=== PATIENT | female | born 1970 | race Caucasian/White ===

== ENCOUNTER → 2016-08-22 | Outpatient (CLI) | payer BC, OTHER ==
[~2016-08-22] MED LIST: CYAN10005 PO; FERR1TAB23 PO; GLYB5TAB8 PO; INSDGI SC; POLY335025 PO
== END | disposition home or self-care (01) ==
LOC: C.PAPS 11:54
PROVIDERS: ATTEND Obstetrics & Gynecology
DX: R87.610 Atypical squamous cells of undetermined significance on cytologic smear of cervix (ASC-US) (principal)

== ENCOUNTER → 2017-02-28 | Outpatient (CLI) | payer BC, OTHER ==
--- NOTE | 2017-03-01 07:54 | MAMMOGRAPHY REPORT ---
BILATERAL DIGITAL SCREENING MAMMOGRAM TOMOSYNTHESIS WITH CAD: 02/28/2017 CLINICAL HISTORY: Routine screening. TECHNIQUE: Breast tomosynthesis in addition to standard 2D mammography was performed. Current study was also evaluated with a Computer Aided Detection (CAD) system. COMPARISON: Comparison is made to exams dated: 03/10/2016 mammogram, 02/28/2016 mammogram, 02/24/2015 mammogram, 02/23/2014 mammogram, 02/20/2013 mammogram, and 01/24/2012 mammogram - [facility]. BREAST COMPOSITION: There are scattered areas of fibroglandular density in both breasts. FINDINGS: There are numerous stable groupings of punctate microcalcifications and benign rim calcific ations in the breasts. No suspicious mass, architectural distortion or cluster of new, suspicious mi crocalcifications is seen. IMPRESSION: ACR BI-RADS CATEGORY 1: NEGATIVE There is no mammographic evidence of malignancy. A 1 year screening mammogram is recommended. The pa tient will receive written notification of the results. Approximately 10% of breast cancers are not detected with mammography. A negative mammographic report should not delay biopsy if a clinically suggestive mass is present. Ida Uribe M.D. ay/:02/28/2017 16:06:12 [employer] Mdm Architect: Mariajose PYLE(R)(M), [facility] letter sent: Normal 1/2 BI-RADS Code: ACR BI-RADS Category 1: Negative
== END | disposition home or self-care (01) ==
LOC: C.MAMM 15:02
PROVIDERS: ATTEND Obstetrics & Gynecology
DX: Z12.31 Encounter for screening mammogram for malignant neoplasm of breast (principal)

== ENCOUNTER → 2017-03-06 | Outpatient (CLI) | payer BC, OTHER | END | disposition home or self-care (01) | LOC: C.PAPS 12:15 | PROVIDERS: ATTEND Obstetrics & Gynecology | DX: Z01.419 Encounter for gynecological examination (general) (routine) without abnormal findings (principal); R87.610 Atypical squamous cells of undetermined significance on cytologic smear of cervix (ASC-US) ==

== ENCOUNTER 2023-09-20 15:51 | Inpatient (IN) ==
[~2023-09-20 15:51] MED LIST changes: -CYAN10005 PO; -FERR1TAB23 PO; -GLYB5TAB8 PO; -INSDGI SC; +MAGNESIUM SULFATE / D5W 1 GM/100 ML BAG IV SCH; -POLY335025 PO
[2023-09-20] MEDS: SODIUM CHLORIDE 0.9% 1,000 ML IV ONE (16:22)
--- NOTE | 2023-09-20 16:43 | XRay Report ---
XR chest 1V portable HISTORY: 53 years-old Female Weakness COMPARISON: None TECHNIQUE: AP view of the chest FINDINGS: Cardiomediastinal and hilar silhouettes are within normal limits. No pneumothorax, pleural effusion o r airspace consolidation. Bones appear grossly intact. IMPRESSION: No acute process. ACT 112: Negative or not required by law. The above report was generated using voice recognition software. It may contain grammatical, syntax o r spelling errors. Electronically signed by: Jeferson Ballesteros M.D. 09/20/2023 4:41 PM
[2023-09-20 16:48] LABS: Alanine Aminotransferase 14 U/L (7-52); Albumin Level 4.1 gm/dl (3.4-5.0); Alkaline Phosphatase 59 U/L (34-104); Anion Gap 10 (3-11); Aspartate Aminotransferase 18 U/L (13-39); BUN Creatinine Ratio 26.3 (10-20); Bilirubin,Total 0.9 mg/dl (0.2-1.0); Blood Urea Nitrogen 20 mg/dl (6-23); Calcium 9.3 mg/dl (8.6-10.3); Carbon Dioxide 24 mmol/L (21-32); Chloride 104 mmol/L (98-107); Creatinine Clr Calc Pharmacy 74.9 ml/min; Est GFR (African American) 102.3 ml/min; Est GFR (Non-African American) 88.3 ml/min; Globulin 2.1 gm/dl (2.5-4.0); Glucose 253 mg/dl (70-99(Fasting)); Magnesium 1.6 mg/dl (1.7-2.4); Potassium 4.1 mmol/L (3.5-5.1); Sodium 138 mmol/L (136-145); Total Protein 6.2 gm/dl (6.0-8.3)
[2023-09-20 16:55] LABS: Troponin I High Sensitivity < 2.3 pg/ml (0-14)
[2023-09-20 16:57] LABS: Partial Thromboplastin Ratio 0.8; Partial Thromboplastin Time 22 Seconds (21-31); Prothrombin Time 10.8 Seconds (9.0-12.0)
[2023-09-20 17:00] LABS: Basophils # (auto) 0.03 K/uL (0.00-0.20); Basophils % (auto) 0.6 %; Eosinophils # (auto) 0.06 K/uL (0.00-0.50); Eosinophils % (auto) 1.2 %; Hematocrit (blood only) 36.4 % (37.0-47.0); Hemoglobin 12.3 g/dl (12.0-16.0); Immature Granulocytes # (auto) 0.02 K/uL (0.01-0.20); Immature Granulocytes % (auto) 0.4 %; Lymphocytes # (auto) 1.36 K/uL (1.20-3.40); Lymphocytes % (auto) 26.4 %; Mean Corpuscular Hemoglobin 29.9 pg (25.0-34.0); Mean Corpuscular Hgb Conc 33.8 g/dL (32.0-36.0); Mean Corpuscular Volume 88.6 fL (80.0-100.0); Mean Platelet Volume 11.9 fL (9.4-12.4); Monocytes # (auto) 0.27 K/uL (0.11-0.59); Monocytes % (auto) 5.2 %; Neutrophils # (auto) 3.41 K/uL (1.40-6.50); Neutrophils % (auto) 66.2 %; Platelet Count 166 K/uL (130-400); RDW Coefficient of Variation 12.7 % (11.5-14.5); RDW Standard Deviation 41.7 fL (36.4-46.3); Red Blood Count 4.11 M/uL (4.20-5.40); White Blood Count 5.15 K/ul (4.8-10.8)
[2023-09-20 17:04] LABS: Thyroid Stimulating Hormone 1.338 uIu/ml (0.300-4.500)
--- NOTE | 2023-09-20 17:12 | Emergency Department Note ---
Impression & Plan Abdominal pain, Constipation, Acute hypotension ED Provider Note NAME: ROQUE SANDOVAL AGE: 53 SEX: F : 1970 ARRIVES VIA: Walk-In INFORMANT: Patient ED PROVIDER(S): Brody George DO CHIEF COMPLAINT: weakness HPI: Patient is a 53-year-old female who presents to the ER she started not feeling well around 3 PM. She started having pain in the epigastric region to the right upper quadrant. Radiates through to the right shoulder. Associate with nausea and vomiting. She denies any dysuria, urgency, or frequency. She was concerned that she may be having a heart attack. She denies any other chest pain or shortness of breath. No previous abdominal surgeries. ADDITIONAL HISTORY OBTAINED: Per HPI Chronic Medical/Social Conditions Affecting Care: Per HPI PAST MEDICAL HISTORY:See Below PAST SURGICAL HISTORY:See Below FAMILY HISTORY:See Below SOCIAL HISTORY:See Below HOME MEDICATIONS:See Below ALLERGIES:See Below VITALS:See Below PHYSICAL EXAMINATION: GENERAL: Sitting up in bed, alert, well appearing, well nourished, no distress, non-toxic EYE EXAM: normal conjunctiva. OROPHARYNX: mucous membranes are moist NECK: supple, no nuchal rigidity, no adenopathy, non-tender LUNGS: Clear to auscultation. Normal chest wall mechanics HEART: no murmurs, S1 normal and S2 normal ABDOMEN: abdomen soft, tender palpation epigastric region, normo-active bowel sounds, no masses, no rebound or guarding. UPPER EXTREMITIES: upper extremities are grossly normal. LOWER EXTREMITIES: No pitting edema. NEURO EXAM: Normal sensorium, cranial nerves II-XII grossly intact, normal speech, no gross weakness of arms, no gross weakness of legs. MEDICAL DECISION MAKING: Patient is a 53-year-old female who presents ER for the above-stated complaint. IV was established blood work was obtained. Labs show no significant leukocytosis or anemia. INR unremarkable. BMP with LFTs, bilirubin, was unremarkable. Mag at 1.6. Troponins were negative x 2. TSH unremarkable. UA with ketones suggesting dehydration. Systolic pressures trended down to the 70s. She was given 2 L of normal saline. The trended back up to the 90s. Baseline systolic pressures appear to be 120s. CT abdomen pelvis confirmed and showed stercoral proctitis with fecal impaction. Patient was given enema and had multiple large bowel movements. She was feeling better but did have pain in the epigastric/right upper quadrant. Ultrasound was ordered and showed sludge in the gallbladder but no acute cholecystitis. Did cover prophylactically with Zosyn. Consults/Care Managements Discussions: Per MDM Triage Nursing notes reviewed. Limited review of prior medical records performed Vital Signs: reviewed and remarkable for hypotension Differential diagnosis: Differential diagnoses includes but is not limited to gastritis, peptic ulcer disease, GERD, gallbladder disease, pancreatitis, small bowel obstruction, appendicitis, diverticulitis, hernia, urinary tract infection, torsion, [/ectopic (if female)], perforation, trauma, infectious. ER treatment provided: See below Diagnostics interpreted by me include EKG and cardiac monitoring as listed below: -Cardiac Monitoring: An order was placed for continuous cardiac monitoring. The monitor shows a rate of 101 with sinus rhythm. -ECG: Sinus rhythm rate 92 Normal axis No PVCs QTc 432 -Laboratory studies:Interpreted by me as stated above in MDM and shown below. 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 Friedman Type 1 diabetes IDDM Family history of premature CAD Cervical intraepithelial neoplasia grade 1 Medical History Hx of iron deficiency anemia Migraine History of COVID-19 Postmenopausal PVCs (premature ventricular contractions) Type 1 diabetes Family history of premature CAD Cervical intraepithelial neoplasia grade 1 History of hiatal hernia Chronic reflux esophagitis Uterine enlargement Breast neoplasm Surgical History History of wisdom tooth extraction H/O LEEP History of esophagogastroduodenoscopy (EGD) H/O colposcopy with cervical biopsy S/P colonoscopy Family History Mother Coronary heart disease Daughter Diabetes Brother Diabetes Cardiovascular disease Father Stroke Other No family history of adverse response to anesthesia Denies family history of Ovarian cancer Breast cancer Colorectal cancer Social History Smoking Status: Never smoker Second Hand Exposure: No; Do You Dip or Chew Tobacco: No; Hx Alcohol Use: Yes Hx Substance Use: No Preferred Language: Setswana Communication Ability: Effective Visual Impairment: No Limitations Hearing Ability: Normal 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 Helper Required: No Beliefs That Will Affect Care: None marital status: Current Living Situation: Spouse Feels Safe at Home: Yes Dental Care, Regularly: Yes Seatbelt Use: always Assistive Devices: Contacts and Glasses Allergies Allergies Allergy/AdvReac Type Severity Reaction Status Date / Time No Known Drug Allergies Allergy Verified 09/06/23 12:41 Home Meds Home Medications Medication Instructions Recorded Confirmed cholecalciferol (vitamin D3) 25 1,000 - 2,000 units PO HS 12/18/18 09/20/23 mcg (1,000 unit) capsule cyanocobalamin (vitamin B-12) 1,000 mcg IM UD 12/23/18 09/20/23 1,000 mcg/mL injection solution flash glucose sensor (FreeStyle 09/06/23 09/06/23 Raghavendra 2 Sensor kit) insulin aspart U-100 100 unit/mL 1 sliding scale dose subcut DAILY 09/06/23 09/20/23 (3 mL) subcutaneous pen (Novolog PRN Other FlexPen U-100 Insulin aspart) insulin glargine 100 unit/mL (3 8 unit subcut HS 09/06/23 09/20/23 mL) subcutaneous pen (Basaglar KwikPen U-100 Insulin) atorvastatin 20 mg tablet 10 mg PO HS 09/20/23 09/20/23 tirzepatide 5 mg/0.5 mL 5 mg subcut Q7D 09/20/23 09/20/23 subcutaneous pen injector (Kamran) Previous Rx's Medication Instructions Recorded acetone (urine) test (Ketostix #50 ea 10/13/22 strips) Omnipod 5 G6 Intro Kit (Gen 5) #1 10/16/22 subcutaneous cartridge with controller (insulin pump cart,auto,BT-cntr) Omnipod 5 G6 Pods (Gen 5) (insulin #10 ea 10/16/22 pump cart,automated,BT) pen needle, diabetic 32 gauge x #450 ea 04/05/23 5/32" (BD Ultra-Fine Patricia Pen Needle) Results & Data (ED) Vital Signs Vital Signs - 24 hr 09/20/23 15:55 09/20/23 16:20 09/20/23 16:20 Temperature 36.7 C Temperature Source Temporal Artery Scan Pulse Rate 96 H Pulse Rate [Apical] 90 Respiratory Rate 16 Respiratory Effort / Characteristics Non-Labored Spontaneous Respiratory Depth Normal Blood Pressure 70/49 L Blood Pressure [Left Arm] 90/45 L Blood Pressure Mean 56 Blood Pressure Mean [Left Arm] 60 Pulse Oximetry 99 100 Oxygen Delivery Method Room Air Room Air Sepsis Recent Fever Within 48 Hours No Sepsis New/Unexplained Change in Mental Status No Sepsis Action Taken by Nursing No Action Required 09/20/23 16:27 09/20/23 16:33 09/20/23 18:00 Temperature Temperature Source Pulse Rate 106 H Pulse Rate [Apical] 101 H Respiratory Rate 20 Respiratory Effort / Characteristics Respiratory Depth Blood Pressure Blood Pressure [Left Arm] 100/50 L 104/38 L Blood Pressure Mean Blood Pressure Mean [Left Arm] 66 60 Pulse Oximetry 100 Oxygen Delivery Method Room Air Sepsis Recent Fever Within 48 Hours Sepsis New/Unexplained Change in Mental Status Sepsis Action Taken by Nursing 09/20/23 21:43 Temperature Temperature Source Pulse Rate Pulse Rate [Apical] 100 H Respiratory Rate 18 Respiratory Effort / Characteristics Respiratory Depth Blood Pressure Blood Pressure [Left Arm] 98/73 L Blood Pressure Mean Blood Pressure Mean [Left Arm] 81 Pulse Oximetry Oxygen Delivery Method Sepsis Recent Fever Within 48 Hours Sepsis New/Unexplained Change in Mental Status Sepsis Action Taken by Nursing Laboratory Data 09/20/23 16:08 09/20/23 16:08 Lab Results 09/20/23 09/20/23 09/20/23 Range/Units 16:08 18:18 21:26 WBC 5.15 (4.8-10.8) K/ul RBC 4.11 L (4.20-5.40) M/uL Hgb 12.3 (12.0-16.0) g/dl Hct 36.4 L (37.0-47.0) % MCV 88.6 (80.0-100.0) fL MCH 29.9 (25.0-34.0) pg MCHC 33.8 (32.0-36.0) g/dL RDW Std Deviation 41.7 (36.4-46.3) fL RDW Coeff of Franny 12.7 (11.5-14.5) % Plt Count 166 (130-400) K/uL MPV 11.9 (9.4-12.4) fL Immature Gran % (Auto) 0.4 % Neut % (Auto) 66.2 % Lymph % (Auto) 26.4 % Mckenzie % (Auto) 5.2 % Eos % (Auto) 1.2 % Baso % (Auto) 0.6 % Neut # (Auto) 3.41 (1.40-6.50) K/uL Lymph # (Auto) 1.36 (1.20-3.40) K/uL Mckenzie # (Auto) 0.27 (0.11-0.59) K/uL Eos # (Auto) 0.06 (0.00-0.50) K/uL Baso # (Auto) 0.03 (0.00-0.20) K/uL Immature Gran # (Auto) 0.02 (0.01-0.20) K/uL PT 10.8 (9.0-12.0) Seconds INR 1.0 (0.9-1.1) APTT 22 (21-31) Seconds PTT Ratio 0.8 Sodium 138 (136-145) mmol/L Potassium 4.1 (3.5-5.1) mmol/L Chloride 104 (98-107) mmol/L Carbon Dioxide 24 (21-32) mmol/L Anion Gap 10 (3-11) BUN 20 (6-23) mg/dl Creatinine 0.76 (0.6-1.2) mg/dl Est Cr Clr Drug Dosing 74.9 ml/min Est GFR ( Amer) 102.3 ml/min Est GFR (Non-Af Amer) 88.3 ml/min BUN/Creatinine Ratio 26.3 H (10-20) Glucose 253 H (70-99(Fasting)) mg/dl Calcium 9.3 (8.6-10.3) mg/dl Magnesium 1.6 L (1.7-2.4) mg/dl Total Bilirubin 0.9 (0.2-1.0) mg/dl AST 18 (13-39) U/L ALT 14 (7-52) U/L Alkaline Phosphatase 59 (34-104) U/L Troponin I High Sens < 2.3 2.7 (0-14) pg/ml Total Protein 6.2 (6.0-8.3) gm/dl Albumin 4.1 (3.4-5.0) gm/dl Globulin 2.1 L (2.5-4.0) gm/dl Albumin/Globulin Ratio 2.0 (0.9-2) TSH 1.338 (0.300-4.500) uIu/ml Urine Color Yellow Urine Appearance Clear (Clear) Urine pH 5.0 (4.5-7.5) Ur Specific Perkins 1.040 H (1.000-1.030) Urine Protein Negative (Negative) Urine Glucose (UA) 3+ H (Negative) Urine Ketones 2+ H (Negative) Urine Blood Negative (Negative) Urine Nitrite Negative (Negative) Urine Bilirubin Negative (Negative) Urine Urobilinogen Negative (Negative) Ur Leukocyte Esterase Negative (Negative) Administered Medications Discontinued Medications Sodium Chloride (Nss) 1,000 mls @ 999 mls/hr IV .Q1H1M ONE Stop: 09/20/23 17:18 Last Infusion: 09/20/23 17:28 Dose: Infused Documented By: Admin: 09/20/23 16:22 Dose: 999 mls/hr Documented By: TOREY Sodium Chloride (Nss) 1,000 mls @ 999 mls/hr IV .Q1H1M DIANA Stop: 09/20/23 19:15 Last Infusion: 09/20/23 19:31 Dose: Infused Documented By: Admin: 09/20/23 18:25 Dose: 999 mls/hr Documented By: Infusion: 09/20/23 18:25 Dose: Infused Documented By: Admin: 09/20/23 17:18 Dose: 999 mls/hr Documented By: TOREY Ioversol (Optiray 320 100ml) 93 ml IV ONCE ONE Stop: 09/20/23 17:48 Last Admin: 09/20/23 17:47 Dose: 93 ml Documented By: DALY Ketorolac Tromethamine (Ketorolac Tromethamine 15 Mg/Ml Vial) 15 mg IV NOW ONE Stop: 09/20/23 17:19 Last Admin: 09/20/23 17:23 Dose: 15 mg Documented By: TOREY Magnesium Citrate (Magnesium Citrate 296 Ml/Btl) 296 ml PO NOW STA Stop: 09/20/23 19:02 Last Admin: 09/20/23 20:15 Dose: 296 ml Documented By: TOREY Ondansetron HCl (Ondansetron Inj 2 Mg/Ml 2 Ml Vial) 4 mg IV NOW STA Stop: 09/20/23 17:19 Last Admin: 09/20/23 17:23 Dose: 4 mg Documented By: TOREY Imaging Data Radiologist's Impression: Chest X-Ray 09/20/23 16:18 XR chest 1V portable HISTORY: 53 years-old Female Weakness COMPARISON: None TECHNIQUE: AP view of the chest FINDINGS: Cardiomediastinal and hilar silhouettes are within normal limits. No pneumothorax, pleural effusion or airspace consolidation. Bones appear grossly intact. IMPRESSION: No acute process. ACT 112: Negative or not required by law. The above report was generated using voice recognition software. It may contain grammatical, syntax or spelling errors. Electronically signed by: Jeferson Ballesteros M.D. 09/20/2023 4:41 PM Abdomen/Pelvis CT 09/20/23 17:18 CT SCAN OF THE ABDOMEN AND PELVIS WITH IV CONTRAST CLINICAL HISTORY: Epigastric abdominal pain. Nausea and vomiting. COMPARISON STUDY: Abdominal ultrasound dated 04/28/2014. TECHNIQUE: Following the IV administration of 93 cc of Optiray 320, CT scan of the abdomen and pelvis is performed from the lung bases to the proximal femora. Images are reviewed in the axial, sagittal, and coronal planes. IV contrast was administered without complication. A dose lowering technique was utilized adhering to the principles of ALARA. CT DOSE: 387.3 mGy.cm FINDINGS: Lung bases: The heart is normal in size and without pericardial effusion. The lung bases are clear. Liver: The contrast-enhanced liver is normal in size, contour, and attenuation. There is no intrahepatic biliary ductal dilatation. The hepatic veins and portal veins are patent. A 2.4 cm low-attenuation lesion is seen in the left lobe of the diaphragm on image #40. This appears to show foci of peripheral nodular enhancement. An additional 1.1 cm left lobe lesion is seen on image #65 and a 1.2 cm right lobe lesion Is seen on image #79. Gallbladder: Unremarkable. Spleen: Normal in size and attenuation. Pancreas: Unremarkable. Adrenal glands: Unremarkable. Kidneys: The contrast enhanced kidneys are normal in size and without hydronephrosis. The kidneys enhance symmetrically. A retroaortic left renal vein is incidentally noted. Abdominal vasculature: The abdominal aorta is normal in course and caliber. Bowel: There is rectosigmoid fecal impaction, with rectal wall thickening and mild surrounding inflammation. There is zfjv-so-zzurensm fecal retention throughout the remainder of the colon. Although decompressed, the wall of the left colon appears mildly thickened with surrounding infiltration. No bowel obstruction is seen. Imaged portions of the normal appendix are seen in the right lower quadrant. Peritoneum: There is no intraperitoneal free air or abdominal ascites. There is mesenteric edema. Lymphadenopathy: None. Pelvic viscera: The bladder, uterus, and adnexa are normal as visualized. Skeletal structures: No lytic or blastic lesions are seen. Soft tissues: There is anasarca of the body wall. IMPRESSION: 1. There is rectosigmoid fecal impaction with mild rectal wall thickening and surrounding infiltration. The appearance favors a stercoral proctitis and clinical correlation will be required. 2. There is also likely a mild colitis ofthe left colon. This may also be stercoral. Correlate clinically. 3. There is body wall edema. 4. There are at least 3 low attenuation hepatic lesions identified. These are incompletely characterized, and favor hemangiomas when correlated with prior ultrasounds. If warranted these could be definitively characterized with a nonemergent/outpatient MRI of the liver. 5. Additional findings as above. ACT 112: Negative or not required by law. Electronically signed by: Tony Pathak M.D. 09/20/2023 6:10 PM Discharge Plan Visit Data Chief Complaint: Weakness Stated Complaint: VERTIGO, NAUSEA, TYPE I DIABETE, WEAK ED Provider: Brody George Discharge Problem: Abdominal pain, Constipation, Acute hypotension Forms Stand Alone Forms: [employer] Prescriptions Prescriptions: No Action (DME) Omnipod 5 G6 Pods (Gen 5) Cartridge See Rx Instructions .Route Qty: 10 11RF Rx Instructions: Change pod every 3 days; subq (DME) Omnipod 5 G6 Intro Kit (Gen 5) Cartridge See Rx Instructions .Route Qty: 1 0RF Rx Instructions: Change pod every 3 days; subq (DME) pen needle, diabetic [BD Ultra-Fine Patricia Pen Needle] 32 gauge x 5/32" needle See Dose Instructions .ROUTE .MEDSUPPLY Qty: 450 3RF Dose Instruction: As directed Rx Instructions: use 5 daily for multiple injections (DME) Ketostix Strip See Rx Instructions miscellaneous .MEDSUPPLY Qty: 50 5RF Rx Instructions: check for sick days and high blood sugars insulin glargine [Basaglar KwikPen U-100 Insulin] 100 unit/mL (3 mL) insulin pen 8 unit SQ HS insulin aspart U-100 [Novolog FlexPen U-100 Insulin] 100 unit/mL (3 mL) insulin pen 1 sliding scale dose subcut DAILY PRN (Reason: Other) Rx Instructions: with meals per sliding scale (DME) FreeStyle Arghavendra 2 Sensor Kit See Rx Instructions .ROUTE Rx Instructions: As directed cholecalciferol (vitamin D3) 1,000 unit capsule 1,000 - 2,000 units PO HS Patient Comments: 1,000 unit PO take 1 tablet in the summer, 2 tablets in the winter; Rx Instructions: 1,000 unit PO take 1 tablet in the summer, 2 tablets in the winter; cyanocobalamin (vitamin B-12) 1,000 mcg/mL solution 1,000 mcg IM UD Patient Comments: 1,000 mcg IM bi-weekly; Rx Instructions: 1,000 mcg IM bi-weekly; atorvastatin 20 mg tablet 10 mg PO HS Rx Instructions: original: 20 mg po hs 10 mg per patient Mounjaro 5 mg/0.5 mL pen injector 5 mg subcut Q7D Rx Instructions: weekly injection 21 day dose Referrals Referrals: Tashi Gill MD [Primary Care Provider] - Discharge Problem: Abdominal pain Qualifiers: Abdominal location: unspecified location Qualified Code(s): R10.9 - Unspecified abdominal pain Constipation Qualifiers: Constipation type: unspecified constipation type Qualified Code(s): K59.00 - Constipation, unspecified
[2023-09-20] MEDS: SODIUM CHLORIDE 0.9% 1,000 ML IV SCH (17:18)
[2023-09-20] MEDS: KETOROLAC TROMETHAMINE 15 MG/ML VIAL IV ONE (17:23)
[2023-09-20] MEDS: ONDANSETRON INJ 2 MG/ML 2 ML VIAL IV STA (17:23)
[2023-09-20] MEDS: OPTIRAY 320 100ml IV ONE (17:47)
--- NOTE | 2023-09-20 18:11 | CT Scan Report ---
CT SCAN OF THE ABDOMEN AND PELVIS WITH IV CONTRAST CLINICAL HISTORY: Epigastric abdominal pain. Nausea and vomiting. COMPARISON STUDY: Abdominal ultrasound dated 04/28/2014. TECHNIQUE: Following the IV administration of 93 cc of Optiray 320, CT scan of the abdomen and pelvi s is performed from the lung bases to the proximal femora. Images are reviewed in the axial, sagittal , and coronal planes. IV contrast was administered without complication. A dose lowering technique wa s utilized adhering to the principles of ALARA. CT DOSE: 387.3 mGy.cm FINDINGS: Lung bases: The heart is normal in size and without pericardial effusion. The lung bases are clear. Liver: The contrast-enhanced liver is normal in size, contour, and attenuation. There is no intrahepa tic biliary ductal dilatation. The hepatic veins and portal veins are patent. A 2.4 cm low-attenuatio n lesion is seen in the left lobe of the diaphragm on image #40. This appears to show foci of periphe ral nodular enhancement. An additional 1.1 cm left lobe lesion is seen on image #65 and a 1.2 cm righ t lobe lesion Is seen on image #79. Gallbladder: Unremarkable. Spleen: Normal in size and attenuation. Pancreas: Unremarkable. Adrenal glands: Unremarkable. Kidneys: The contrast enhanced kidneys are normal in size and without hydronephrosis. The kidneys enh ance symmetrically. A retroaortic left renal vein is incidentally noted. Abdominal vasculature: The abdominal aorta is normal in course and caliber. Bowel: There is rectosigmoid fecal impaction, with rectal wall thickening and mild surrounding inflam mation. There is [id number]-dk-iyezyozv fecal retention throughout the remainder of the colon. Although dec ompressed, the wall of the left colon appears mildly thickened with surrounding infiltration. No claude l obstruction is seen. Imaged portions of the normal appendix are seen in the right lower quadrant. Peritoneum: There is no intraperitoneal free air or abdominal ascites. There is mesenteric edema. Lymphadenopathy: None. Pelvic viscera: The bladder, uterus, and adnexa are normal as visualized. Skeletal structures: No lytic or blastic lesions are seen. Soft tissues: There is anasarca of the body wall. IMPRESSION: 1. There is rectosigmoid fecal impaction with mild rectal wall thickening and surrounding infiltratio n. The appearance favors a stercoral proctitis and clinical correlation will be required. 2. There is also likely a mild colitis ofthe left colon. This may also be stercoral. Correlate clini sheri. 3. There is body wall edema. 4. There are at least 3 low attenuation hepatic lesions identified. These are incompletely characteri zed, and favor hemangiomas when correlated with prior ultrasounds. If warranted these could be defini tively characterized with a nonemergent/outpatient MRI of the liver. 5. Additional findings as above. ACT 112: Negative or not required by law. Electronically signed by: Tony Pathak M.D. 09/20/2023 6:10 PM
[2023-09-20] MEDS: MAGNESIUM CITRATE 296 ML/BTL PO STA (20:15)
[2023-09-20 21:50] LABS: Appearance Urine Clear (Clear); Bilirubin Urine Negative (Negative); Blood Urine Negative (Negative); Color Urine Yellow; Glucose Urine UA 3+ (Negative); Ketones Urine 2+ (Negative); Leukocyte Esterase Urine Negative (Negative); Nitrite Urine Negative (Negative); Protein Urine Negative (Negative); Urobilinogen Urine Negative (Negative)
--- NOTE | 2023-09-20 22:17 | Ultrasound Report ---
Exam(s): US GALLBLADDER EXAM: US Abdomen Limited, Gallbladder CLINICAL HISTORY: Reason for exam: epigastric abd pain. TECHNIQUE: Real-time ultrasound of the right upper quadrant with image documentation. COMPARISON: None. FINDINGS: Limitations: Exam is limited due to body habitus and gas artifact in the bowel. Liver: The liver measures 13.5 cm . The portal vein reveals hepatopedal flow. There are 2 hyperechoic area seen within the right liver lobe measuring 1.0 x 1.1 x 1.0 cm and 0.9 x 0.8 x 1.0 cm. Gallbladder: Subtle internal echoes within the gallbladder seen suggestive of possible sludge versus artifact. No distinct gallstone . Gallbladder wall measures 3 mm. Negative [place] sign. Common bile duct: The common bile measures 4 mm. No stones. No dilation. Pancreas: The pancreas is obscured. Right kidney: The right kidney reveals no hydronephrosis. Free fluid: No free fluid. IMPRESSION: 1. Possible small amount of sludge within the gallbladder. No gallstones or signs of acute cholecystitis. 2. 2 hyperechoic structure within the right liver lobe largest measuring 1.1 cm most compatible with hemangiomas. If indicated, this can be confirmed with follow-up CT or MRI, three-phase protocol. 3. Remainder of the right upper quadrant ultrasound unremarkable. Electronically signed by: Halina Wilde MD 09/20/23 22:16 PM
[2023-09-20] MEDS: PIPERACILLIN/TAZOBACTAM 4.5 GM in DEXTROSE 5% MINI-B 100 ML IV ONE (22:47)
--- NOTE | 2023-09-20 23:10 | History & Physical Report ---
Date of Service September 20, 2023 Assessment & Plan (1) Constipation: (2) Type 1 diabetes: (3) Family history of premature CAD: (4) Liver lesion: (5) Sinus tachycardia: Plan Pt is a 53 yo female with a past medical history of GERD, chronic constipation, type 1 diabetic, and family hx of early [place] who presents to the hospital on 09/19 for generally feeling unwell. #Stercoral proctitis - CT abd showed stercoral proctitis, given dose of zosyn - pt is s/p enema in the ED with multiple large nonbloody bowel movements - will start metronidazole in the am - recommend pt have f/u colonoscopy outpatient in probably 4-6 weeks #Sinus tachycardia with hypotension - trop x2 wnl, EKG pending read but appears sinus - seems this started suddenly and with family hx of early [place] this is concerning, may be secondary to dehydration as she is clinically dry but seems ominous with sudden onset - pt given 3L IVF NS for hypotension with moderate improvement - will do echocardiogram and CTA for further workup of sinus tachycardia #Biliary colic - RUQ US shows some GB sludge but no active cholecystitis - will obtain HIDA scan for further workup #DMT1 - will do glargine 3 units BID - novolog per protocol - hold mounjaro; should be discussed with pt prior to discharge if she should be continuing this medication as she has lost a lot of weight and if workup is positive for biliary abnormality, mounjaro could be contributory #Liver lesions - CT abd showed at least 3 liver lesions favoring hemangiomas - recommend outpatient MRI for further evaluation upon discharge DVT ppx: Lovenox IVF: LR 125/hr to stop after 3 bags tomorrow night Dispo: PCU History of Present Illness Chief Complaint: Weakness Primary Care Provider: Tashi Gill MD Pt is a 53 yo female with a past medical history of GERD, chronic constipation, type 1 diabetic, and family hx of early [place] who presents to the hospital on 09/19 for generally feeling unwell. Pt states that this morning and prior to this morning she generally has felt okay with no real issues. She states that today she went to get a massage and felt fine during the massage, but then on her drive home she started to develop sudden and sharp abdominal pain that radiated to her shoulders. She states she also felt "unwell" and weak and then had multiple episodes of bilious vomiting. She states that her dad and mom had a heart attack in their 40s/50s and so she was worried she may be having a heart attack and came into the ER. She states she felt her heart was racing as well. Never had anything like this before. No personal hx of AZ or CVA. No hx of abdominal surgeries before but she does note she has struggled with constipation for a long time, she uses miralax daily for this and typically has a bowel movement daily on this regime. Of note, pt is on Mounjaro and has lost 50 lbs over the last few months. Allergies Allergy/AdvReac Type Severity Reaction Status Date / Time No Known Drug Allergies Allergy Verified 09/06/23 12:41 Home Medications Medication Instructions Recorded Confirmed Type cholecalciferol (vitamin D3) 25 1,000 - 2,000 units PO HS 12/18/18 09/20/23 History mcg (1,000 unit) capsule cyanocobalamin (vitamin B-12) 1,000 mcg IM UD 12/23/18 09/20/23 History 1,000 mcg/mL injection solution acetone (urine) test (Ketostix #50 ea 10/13/22 09/06/23 Rx strips) Omnipod 5 G6 Intro Kit (Gen 5) #1 ea 10/16/22 07/23/23 Rx subcutaneous cartridge with controller (insulin pump cart,auto,BT-cntr) Omnipod 5 G6 Pods (Gen 5) (insulin #10 ea 10/16/22 07/23/23 Rx pump cart,automated,BT) pen needle, diabetic 32 gauge x #450 ea 04/05/23 09/06/23 Rx 5/32" (BD Ultra-Fine Patricia Pen Needle) flash glucose sensor (FreeStyle 09/06/23 09/06/23 History Raghavendra 2 Sensor kit) insulin aspart U-100 100 unit/mL 1 sliding scale dose subcut DAILY 09/06/23 09/20/23 History (3 mL) subcutaneous pen (Novolog PRN Other FlexPen U-100 Insulin aspart) insulin glargine 100 unit/mL (3 8 unit subcut HS 09/06/23 09/20/23 History mL) subcutaneous pen (Basaglar KwikPen U-100 Insulin) atorvastatin 20 mg tablet 10 mg PO HS 09/20/23 09/20/23 History tirzepatide 5 mg/0.5 mL 5 mg subcut Q7D 09/20/23 09/20/23 History subcutaneous pen injector (Darshanunjenny) Past Med/Surg History Problem List (Updated 09/20/23 @ 23:57 by Li Watson DO) Sinus tachycardia Liver lesion Acute hypotension (Acute) Constipation (Acute) Abdominal pain (Acute) Dyslipidemia Asymptomatic postmenopausal state Vitamin D deficiency KAYLEEN (iron deficiency anemia) Encounter for pre-operative examination Anemia (Chronic ~12/2012) Otitis 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 Friedman Type 1 diabetes IDDM Family history of premature CAD Cervical intraepithelial neoplasia grade 1 Medical History Hx of iron deficiency anemia Migraine History of COVID-19 Postmenopausal PVCs (premature ventricular contractions) Type 1 diabetes Family history of premature CAD Cervical intraepithelial neoplasia grade 1 History of hiatal hernia Chronic reflux esophagitis Uterine enlargement Breast neoplasm Surgical History History of wisdom tooth extraction H/O LEEP History of esophagogastroduodenoscopy (EGD) H/O colposcopy with cervical biopsy S/P colonoscopy Family History Mother Coronary heart disease Daughter Diabetes Brother Diabetes Cardiovascular disease Father Stroke Other No family history of adverse response to anesthesia Denies family history of Ovarian cancer Breast cancer Colorectal cancer Social History Smoking Status: Never smoker Second Hand Exposure: No; Do You Dip or Chew Tobacco: No; Hx Alcohol Use: Yes Hx Substance Use: No Preferred Language: Luxembourgish Communication Ability: Effective Visual Impairment: No Limitations Hearing Ability: Normal Stone Lathe Operator Required: No Beliefs That Will Affect Care: None marital status: Current Living Situation: Spouse Feels Safe at Home: Yes Dental Care, Regularly: Yes Seatbelt Use: always Assistive Devices: Contacts and Glasses Review of Systems Review of Systems: Constitutional: denies fever, chills, Cardio: denies chest pain, palpitations Resp: denies shortness of breath, cough Physical Exam Physical Exam: General: Alert and oriented, no acute distress, thin appearing female but clinically dry appearing HEENT: Normocephalic, moist oral mucosa, Cardio: Regular rate and rhythm, no murmur, Resp: Lungs clear to auscultation b/l, no wheezes or rhonchi, GI: Soft, nondistended, bowel sounds active, mild diffuse tenderness to palpation noted Skin: Warm, pink, dry, Results & Data Results & Data Vital Signs (Past 12 Hours) Vital Signs Temp Pulse Pulse Resp BP BP Pulse Ox 09/20/23 21:43 100 H 18 98/73 L 09/20/23 18:00 101 H 20 104/38 L 100 09/20/23 16:33 100/50 L 09/20/23 16:27 106 H 09/20/23 16:20 100 09/20/23 16:20 90 90/45 L 09/20/23 15:55 36.7 C 96 H 16 70/49 L 99 O2 Del Method 09/20/23 21:43 09/20/23 18:00 Room Air 09/20/23 16:33 09/20/23 16:27 09/20/23 16:20 Room Air 09/20/23 16:20 09/20/23 15:55 Room Air Supervising Physician Co-Signing Physician Notes Attending addendum: I have physically seen this patient, have supervised the medical residents act ivities, and agree with the H&P unless as otherwise noted. Assessment and Plan: Stercoral proctocolitis- Follow blood culture sensitivity Given single dose of Zosyn 4.5 g IV from the ED ED administered enema with multiple large nonbloody bowel movements Start Cipro 400 mg IV every 12 hours and Flagyl 500 mg IV every 8 hours Sepsis/hypotension/sinus tachycardia- Likely secondary to proctocolitis and dehydration Blood pressure initially 70/49, did improve with 3 L normal saline to 98/54 Patient describes symptoms of disorientation and inability to follow commands when initially assessed Patient also describes acute onset of rapid heart rate and palpitations CTA chest PE protocol negative for PE, aortic dissection or other acute cardiopulmonary disease Continue IV fluids as noted Right upper quadrant pain- NPO Right upper quadrant ultrasound shows gallbladder sludge but no active cholecystitis Order HIDA scan Patient has had approximately 50 pound weight loss attributed to use of Mounjaro Large weight loss could predispose to cholecystitis, and Mounjaro itself is associated with biliary colic Cipro and Flagyl as noted above Liver lesions x 3- Noted on CT abdomen pelvis is possibly hemangiomas Further clarification with MRI as outpatient Resident Activity Tracking Resident Involvement: Resident Care Provided Care Provided: Adult Hospital Medicine (1) Constipation Constipation type: unspecified constipation type Qualified Code(s): K59.00 - Constipation, unspecified
[2023-09-20] MEDS: OPTIRAY 320 125ml IV ONE (23:47)
[2023-09-21] MEDS ORDERED: GLUCAGON FOR INJ 1 MG VIAL SQ PRN (00:49)
[2023-09-21] MEDS ORDERED: CARBOHYDRATES FOR HYPOGLYCEMIA PO PRN (00:49)
[2023-09-21] MEDS ORDERED: GLUCOSE 40% GEL 15 GM TUBE PO PRN (00:49)
[2023-09-21] MEDS ORDERED: POLYETHYLENE (MIRALAX) 17 GM PACK PO PRN (00:49)
[2023-09-21] MEDS ORDERED: DEXTROSE 50% 50 ML SYRINGE IV PRN (00:49)
[2023-09-21] MEDS ORDERED: GLUCOSE 10 TAB/TUBE PO PRN (00:49)
[2023-09-21] MEDS ORDERED: ACETAMINOPHEN 325 MG TAB PO PRN (00:49)
[2023-09-21] MEDS: ONDANSETRON INJ 2 MG/ML 2 ML VIAL IV PRN (00:59)
[2023-09-21] MEDS: LACTATED RINGER'S 1,000 ML IV SCH ×2 (00:59→09:25)
[2023-09-21] MEDS: MAGNESIUM SULFATE / D5W 1 GM/100 ML BAG IV SCH (01:45)
[2023-09-21] MEDS: ONDANSETRON INJ 2 MG/ML 2 ML VIAL ONE (01:55)
--- NOTE | 2023-09-21 02:09 | CT Scan Report ---
Exam(s): CTA CHEST IV Amt: 86 ml opti 320 EXAM: CT Angiography Chest With Intravenous Contrast CLINICAL HISTORY: Reason for exam: PE. TECHNIQUE: Axial computed tomographic angiography images of the chest with intravenous contrast. CTDI is 21.3 mGy and DLP is 292.35 mGy-cm. Automated exposure control was utilized for the study. A dose lowering technique was utilized adhering to the principles of ALARA. MIP reconstructed images were created and reviewed. COMPARISON: None. FINDINGS: Pulmonary arteries: Unremarkable. No pulmonary embolism. Normal enhancement of the pulmonary arteries. Aorta: Minimal atherosclerotic disease of aorta with no aneurysm or dissection. Lungs: Unremarkable. No mass. No consolidation. Pleural space: Unremarkable. No significant effusion. No pneumothorax. Heart: Unremarkable. No cardiomegaly. No significant pericardial effusion. No evidence of RV dysfunction. Bones/joints: Mild spondylosis of the thoracic spine with no acute fracture or subluxation. Soft tissues: Diffuse fluid infiltration of subcutaneous fat which may indicate mild anasarca. Lymph nodes: Unremarkable. No enlarged lymph nodes. Other findings: Upper abdominal structures incompletely included in the [id number] and therefore difficult to characterize. Visualized upper abdominal viscera are unremarkable. IMPRESSION: 1. No pulmonary embolus or aortic dissection. 2. No acute cardiopulmonary disease. Electronically signed by: Halina Wilde MD 09/21/23 02:08 AM
--- NOTE | 2023-09-21 02:57 | Billing Data ---
Date of Service September 21, 2023 Coding Level of Care Code 13082 INT INP/OBS CARE
[2023-09-21] MEDS ORDERED: PROMETHAZINE HCL 12.5 MG in SODIUM CHLORIDE 0.9% 50 ML IV PRN (05:36)
[2023-09-21] MEDS: CIPROFLOXACIN / D5W 400 MG/200 ML BAG IV SCH (05:46)
[2023-09-21] MEDS: SODIUM CHLORIDE 0.9% 1,000 ML IV ONE (06:14)
[2023-09-21] MEDS: ALBUMIN 25% 25 GM/100 ML VIAL IV SCH (06:23)
[2023-09-21 06:32] LABS: Hemoglobin 10.8 g/dl (12.0-16.0); Mean Corpuscular Hemoglobin 31.1 pg (25.0-34.0); Mean Corpuscular Hgb Conc 34.8 g/dL (32.0-36.0); Mean Corpuscular Volume 89.3 fL (80.0-100.0); Mean Platelet Volume 12.4 fL (9.4-12.4); Platelet Count 148 K/uL (130-400); RDW Coefficient of Variation 13.3 % (11.5-14.5); RDW Standard Deviation 43.4 fL (36.4-46.3); Red Blood Count 3.47 M/uL (4.20-5.40); White Blood Count 12.64 K/ul (4.8-10.8)
[2023-09-21 06:50] LABS: BUN Creatinine Ratio 26.3 (10-20); Calcium 8.5 mg/dl (8.6-10.3); Creatinine Clr Calc Pharmacy 59.9 ml/min; Est GFR (African American) 78.2 ml/min; Est GFR (Non-African American) 67.4 ml/min; Magnesium 2.3 mg/dl (1.7-2.4); Potassium 4.2 mmol/L (3.5-5.1)
[2023-09-21] MEDS ORDERED: INSULIN ASPART PER UNIT CHARGE SC STA (06:58)
[2023-09-21 07:03] LABS: Basophils # (auto) 0.02 K/uL (0.00-0.20); Basophils % (auto) 0.2 %; Immature Granulocytes # (auto) 0.17 K/uL (0.01-0.20); Immature Granulocytes % (auto) 1.3 %; Lymphocytes # (auto) 0.36 K/uL (1.20-3.40); Lymphocytes % (auto) 2.8 %; Monocytes % (auto) 4.7 %; Neutrophils # (auto) 11.49 K/uL (1.40-6.50)
[2023-09-21] MEDS ORDERED: PHARMACY GLYCEMIC MGMT CONSULT PRN ×2 (07:11→07:35)
--- NOTE | 2023-09-21 07:23 | Hospitalist Progress Note ---
Date of Service September 21, 2023 Assessment & Plan (1) Constipation: (2) Type 1 diabetes: (3) Family history of premature CAD: (4) Liver lesion: (5) Sinus tachycardia: Plan Pt is a 53 yo female with a past medical history of GERD, chronic constipation, type 1 diabetes, and family hx of early [place] who presents to the hospital on 09/19 for general malaise, chest pain and abdominal pain that seemed to radiate to shoulders/shoulder blades, and feelings of dizziness, fatigue, 1) Stercoral proctitis - CT abd showed stercoral proctitis, - pt is s/p enema in the ED with multiple large nonbloody bowel movements - pt is ciprofloxacin, IV and metronidazole, IV - WBC, 12.6 <-- 5.2 (admission) - recommend pt have f/u colonoscopy outpatient in probably 4-6 weeks 2) DKA/T1DM - patient went into DKA 09/21/23 AM, DKA order set utilized and pt managed accordingly, this afternoon AG and BSG levels have returned to normal - Pharmacy now managing pt's insulin regimen - Held mounjaro; should be discussed with pt prior to discharge if she should be continuing this medication as she has lost a lot of weight and if workup is positive for biliary abnormality, mounjaro could be contributory 3) Sinus tachycardia with hypotension - trop x2 wnl, EKG: normal sinus rhythm - started suddenly (with family hx of early [place]), may be secondary to dehydration as she is clinically dry but seems ominous with sudden onset - pt given 3L IVF NS for hypotension with moderate improvement - CTA: IMPRESSION: 1. No pulmonary embolus or aortic dissection. 2. No acute cardiopulmonary disease. - Echocardiogram: hyperdynamic LV, mild-moderate tricuspid regurgitation, EF > 70%, no regional wall motion abnormalities noted - continued hypotensive BP readings even after significant amount of fluids over last 24 hours, along w/ WBC increase, raising concerns for sepsis - continue fluid repletion, trend CBC, monitor vitals, continue antibiotics (consider longer course, if sepsis suspicion increasingly warranted) 4)Biliary colic - RUQ US shows some GB sludge but no active cholecystitis - see above regarding Mounjaro use and potential contraindication - HIDA scan w/out concerning acute findings 5) Liver lesions - CT abd showed at least 3 liver lesions favoring hemangiomas per radiology - recommend outpatient MRI for further evaluation upon discharge Code status: Full code DVT ppx: Lovenox IVF: LR 125/hr to stop after 3 bags tomorrow night Dispo: PCU Admission and Anticipated Discharge Date Admission Date: September 20, 2023 Supervising Physician Co-Signing Physician Notes I personally examined the patient and verified all tate points of history and exam, discussed case, and agree with decision making with Dr Acosta Seen several times today. Early this a.m. she was vaguely complaining of abdominal pain and quite groggy. Abdominal pain diffuse, really hard to quantify, but also she was quite sleepy and not able to give much of a history. Only about 2 and half hours later she was awake and alert mildly fatigued but completely coherent. Abdominal pain has essentially resolved. No other new complaints. she also notes Subjective Although patient experiences chronic constipation and is on daily Miralax for that, she has not noticed any worsening of her constipation and has continued to have daily bowel movements. She was experiencing chest pain radiating to both her shoulders yesterday along with sudden onset weakness, fatigue and drove to the hospital where she began to vomit in the parking lot before coming into ED with help of friend. Once admitted she received a chest pain rule out workup along with imaging of the abdomen. This morning the patient seemed sicker, very fatigued, ill looking, nauseous with labs indicating increased WBC count and patient now going into DKA w/ BSG's in 400's, elevated AG. Patient started on insulin drip, 1 L bolus of LR, electrolyte repletion as needed. This afternoon patient's labs had improved, transitioned to subQ insulin, continued to receive fluids, started on a diet, able to tolerate solid food, but continued to have persistently hypotensive blood pressures, although subjectively the patient endorsed feeling much better than upon arrival and admission. Review of Systems Constitutional: + fever (last night but no F/C this morn ing), + chills, + fatigue and + weakness Eyes: no worsening vision (very blurry vision improved over yesterday) Respiratory: no cough, no chest congestion and no dyspnea Cardiovascular: + lightheadedness (when getting up); no radiating jaw, neck or arm pain and no palpitations Gastrointestinal: + abdominal pain (tenderness from vomiti ng episodes), + nausea, + vomiting (started in hospital parking lot) and + constipation (at baseline, 17 g Miralax/daily, no acute on chronic constipation); no change in bowel habits, no change in stools and no blood in stools Musculoskeletal: + body aches (shoulder soreness and belo w breast soreness from massage from yesterday) Neurologic: + dizziness; no tingling, no numbness an d no headache(s) Endocrine: + fatigue and + polyuria Physical Exam Constitutional: well nourished, + ill appearing and cooperative Respiratory: normal respiratory effort, lungs clear to auscultation Cardiovascular: RRR, no murmur, no edema Extremities: no calf tenderness and no pedal edema Gastrointestinal (Abdomen): Inspection/Auscultation: abdomen normal to inspection and normal bowel sounds; abdomen not distended Percussion/Palpation: + abdomen tender (4/10 under left ribcage) Psychiatric: A+Ox3, euthymic affect Results & Data Results & Data Vital Signs (Past 12 Hours) Vital Signs Temp Pulse Pulse Resp BP BP Pulse Ox 09/21/23 03:06 37.5 C 111 H 18 90/50 L 94 09/21/23 01:00 09/21/23 00:58 99 H 09/21/23 00:49 09/21/23 00:45 36.9 C 106 H 16 91/49 L 97 09/21/23 00:45 36.9 C 106 H 20 91/49 L 97 09/20/23 23:00 104 H 17 108/50 L 98 09/20/23 21:43 100 H 18 98/73 L Pulse Ox O2 Del Method O2 Del Method 09/21/23 03:06 Room Air 09/21/23 01:00 Room Air 09/21/23 00:58 09/21/23 00:49 97 Room Air 09/21/23 00:45 Room Air 09/21/23 00:45 Room Air 09/20/23 23:00 Room Air 09/20/23 21:43 (1) Constipation Constipation type: unspecified constipation type Qualified Code(s): K59.00 - Constipation, unspecified
[2023-09-21] MEDS ORDERED: STAT IV Infusion **Titration per Protocol STA (07:35)
[2023-09-21] MEDS ORDERED: PLASMA-LYTE A 1,000 ML IV SCH (07:45)
[2023-09-21] MEDS: LACTATED RINGER'S 1,000 ML IV ONE (07:50)
[2023-09-21] MEDS ORDERED: INSULIN HUMAN REGULAR PER UNIT 5 UNITS in SYRINGE 4.95 ML IV STA (07:54)
[2023-09-21] MEDS: SODIUM CHLORIDE 0.9% 1,000 ML IV SCH (07:59)
[2023-09-21 08:08] LABS: Estimated Average Glucose 131 mg/dl; Hemoglobin A1C 6.2 % (4.5-5.6)
[2023-09-21] MEDS ORDERED: LANTUS PER UNIT CHARGE SQ SCH (09:00)
[2023-09-21] MEDS: INSULIN ASPART PER UNIT CHARGE SC SCH ×3 (09:15→18:09)
[2023-09-21] MEDS: PENDING D5 1/2NS+20mEq KCL IVF SCH (09:16)
[2023-09-21] MEDS: INSULIN REGULAR 250 UNITS in SODIUM CHLORIDE 0.9% 247.5 ML IV SCH (09:19)
[2023-09-21] MEDS: ENOXAPARIN INJ 40 MG/0.4 ML SYR SQ SCH (09:19)
[2023-09-21] MEDS: metroNIDAZOLE 500 MG/100 ML BAG IV SCH (09:19)
[2023-09-21] MEDS: LANTUS PER UNIT CHARGE SC STA (09:25)
--- NOTE | 2023-09-21 10:54 | Electrocardiogram Report ---
Test Reason : Blood Pressure : / mmHG Vent. Rate : 092 BPM Atrial Rate : 092 BPM P-R Int : 122 ms QRS Dur : 070 ms QT Int : 350 ms P-R-T Axes : 086 035 060 degrees QTc Int : 432 ms Normal sinus rhythm Normal ECG When compared with ECG of 12-OCT-1997 18:14, T wave amplitude has decreased in Lateral leads Confirmed by Tashi Saucedo ([id number]) on 09/21/2023 10:54:31 AM Referred By: Confirmed By:Tashi Saucedo
--- NOTE | 2023-09-21 13:36 | XCELERA ---
[id number] [id number]
[2023-09-21 13:38] LABS: BUN Creatinine Ratio 22.6 (10-20); Calcium 8.5 mg/dl (8.6-10.3); Creatinine Clr Calc Pharmacy 49.5 ml/min; Est GFR (Non-African American) 53.5 ml/min; Phosphorus 2.4 mg/dl (2.5-4.9); Potassium 3.1 mmol/L (3.5-5.1)
[2023-09-21] MEDS: LANTUS PER UNIT CHARGE SQ ONE (14:43)
[2023-09-21] MEDS: POTASSIUM CHLORIDE / WTR 10 MEQ/100 ML PLCT IV SCH (14:44)
--- NOTE | 2023-09-21 15:11 | Pharmacy Report ---
Pharmacy Glycemic Short Note 2 - Date of Service September 21, 2023 - Glycemic Short BSG Results (Last 24 hours): 09/20/23 09/21/23 09/21/23 16:08 05:40 07:19 Glucose 253 H 441 H* POC Glucose 415 H* 09/21/23 09/21/23 09/21/23 07:31 09:00 10:18 Glucose 316 H* POC Glucose 401 H* 388 H* 09/21/23 09/21/23 09/21/23 10:41 11:31 12:34 Glucose POC Glucose 330 H* 280 H 225 H 09/21/23 09/21/23 13:32 14:33 Glucose POC Glucose 179 H 125 H OUTPATIENT ANTIDIABETIC REGIMEN: * Lantus 8 units HS * Novolog SS (max 10 units) * HbA1c 6.2% (09/21/23) ASSESSMENT: * Anne is a 53 YOF admitted with abdominal pain and N/V. She has a history of T1DM. Pharmacy has been consulted to assist with glycemic management. * Fasting BSG this AM elevated, missed evening Lantus dose likely cause combined with N/V, anion gap slightly elevated and bicarb low with AM labs, decision was made to begin insulin infusion * Repeat labs show anion gap resolved, pH normal, transitioned back to SQ insulin at this time (received approximately 34 units over about 4 hours with the insulin drip, small Lantus dose given this AM, additional dose given to aid with transition and help to transition back to home bedtime schedule. Additional overnight checks monitor added. PLAN FOR INPATIENT GLYCEMIC CONTROL: * Hold outpatient oral diabetes medications * Basal insulin * Lantus 4 units SQ x1 this morning * Lantus 8 units SQ daily (x1 this afternoon, QDD tomorrow to transition back to bedtime) * Bolus insulin * NovoLog per scale ACHS or Q6hrs while NPO * Goal Range: Low 110 mg/dL - High 140 mg/dL * Correction Factor: 65 mg/dL/unit * Nutritional / Prandial insulin per carb ratio of 1 unit per 15 grams CHO consumed
[2023-09-21] MEDS ORDERED: LANTUS PER UNIT CHARGE SC SCH (16:30)
[2023-09-21 17:00] LABS: BUN Creatinine Ratio 22.4 (10-20); Calcium 8.7 mg/dl (8.6-10.3); Creatinine Clr Calc Pharmacy 45.5 ml/min; Est GFR (African American) 56.1 ml/min; Est GFR (Non-African American) 48.4 ml/min; Phosphorus 2.5 mg/dl (2.5-4.9)
[2023-09-21] MEDS: D5NSS + 20MEQ KCL 20 MEQ/1,000 ML BAG IV SCH (18:07)
[2023-09-21 20:07] LABS: BUN Creatinine Ratio 21.6 (10-20); Calcium 8.5 mg/dl (8.6-10.3); Creatinine Clr Calc Pharmacy 40.9 ml/min; Est GFR (African American) 49.3 ml/min; Est GFR (Non-African American) 42.6 ml/min; Phosphorus 2.8 mg/dl (2.5-4.9)
[2023-09-21] MEDS ORDERED: DC IV INSULIN INFUSION 1 EA DEVI ONE (21:00)
[2023-09-21] MEDS: ATORVASTATIN 10 MG TAB PO SCH (21:09)
[2023-09-22] MEDS: INSULIN ASPART PER UNIT CHARGE SC SCH (00:13)
[2023-09-22 00:27] LABS: BUN Creatinine Ratio 25.8 (10-20); Calcium 8.4 mg/dl (8.6-10.3); Creatinine Clr Calc Pharmacy 44.4 ml/min; Est GFR (African American) 54.5 ml/min; Phosphorus 2.7 mg/dl (2.5-4.9); Potassium 4.3 mmol/L (3.5-5.1)
[2023-09-22 05:22] LABS: Basophils # (auto) 0.03 K/uL (0.00-0.20); Basophils % (auto) 0.3 %; Eosinophils # (auto) 0.01 K/uL (0.00-0.50); Eosinophils % (auto) 0.1 %; Hematocrit (blood only) 26.7 % (37.0-47.0); Hemoglobin 9.2 g/dl (12.0-16.0); Immature Granulocytes # (auto) 0.09 K/uL (0.01-0.20); Immature Granulocytes % (auto) 0.8 %; Lymphocytes % (auto) 12.3 %; Mean Corpuscular Hemoglobin 30.7 pg (25.0-34.0); Mean Corpuscular Hgb Conc 34.5 g/dL (32.0-36.0); Mean Platelet Volume 11.2 fL (9.4-12.4); Monocytes % (auto) 5.3 %; Neutrophils # (auto) 9.21 K/uL (1.40-6.50); Neutrophils % (auto) 81.2 %; Platelet Count 113 K/uL (130-400); RDW Coefficient of Variation 13.6 % (11.5-14.5); RDW Standard Deviation 44.3 fL (36.4-46.3); White Blood Count 11.34 K/ul (4.8-10.8)
[2023-09-22 05:36] LABS: BUN Creatinine Ratio 27.3 (10-20); Calcium 8.5 mg/dl (8.6-10.3); Est GFR (African American) 58.3 ml/min; Est GFR (Non-African American) 50.3 ml/min; Magnesium 2.1 mg/dl (1.7-2.4)
[2023-09-22] MEDS ORDERED: LANTUS PER UNIT CHARGE SQ SCH ×2 (09:00→16:30)
--- NOTE | 2023-09-22 15:15 | Discharge Summary ---
Date of Service September 22, 2023 Admission HPI Per Admitting Provider Pt is a 53 yo female with a past medical history of GERD, chronic constipation, type 1 diabetic, and family hx of early [place] who presents to the hospital on 09/19 for generally feeling unwell. Pt states that this morning and prior to this morning she generally has felt okay with no real issues. She states that today she went to get a massage and felt fine during the massage, but then on her drive home she started to develop sudden and sharp abdominal pain that radiated to her shoulders. She states she also felt "unwell" and weak and then had multiple episodes of bilious vomiting. She states that her dad and mom had a heart attack in their 40s/50s and so she was worried she may be having a heart attack and came into the ER. She states she felt her heart was racing as well. Never had anything like this before. No personal hx of [place] or CVA. No hx of abdominal surgeries before but she does note she has struggled with constipation for a long time, she uses miralax daily for this and typically has a bowel movement daily on this regime. Of note, pt is on Mounjaro and has lost 50 lbs over the last few months. Admission Exam Per Admitting Provider General: Alert and oriented, no acute distress, thin appearing female but clinically dry appearing HEENT: Normocephalic, moist oral mucosa, Cardio: Regular rate and rhythm, no murmur, Resp: Lungs clear to auscultation b/l, no wheezes or rhonchi, GI: Soft, nondistended, bowel sounds active, mild diffuse tenderness to palpation noted Skin: Warm, pink, dry, Principal Diagnosis Stercoral Proctitis Discharge Exam Constitutional: well-appearing, no acute distress HEENT: NCAT, no conjunctival injection CV: extremities well-perfused, no LE edema Resp: no increased work of breathing GI: soft, nondistended MSK: no gross deformities appreciated Skin: warm, dry, no rash appreciated Neuro: alert, oriented, no focal neurologic deficit appreciated Discharge Data Allergies Allergy/AdvReac Type Severity Reaction Status Date / Time No Known Drug Allergies Allergy Verified 09/06/23 12:41 Consultations 09/20/23 21:47 ED Decision to Admit Stat Ordered Studies 09/20/23 17:18 CT Abd and Pelvis [CT abd pelvis IV con only] Stat 09/20/23 19:02 US gallbladder Stat 09/20/23 23:22 CT angio chest PE protocol Stat Hospital Course (1) Constipation: (2) Type 1 diabetes: (3) Family history of premature CAD: (4) Liver lesion: (5) Sinus tachycardia: Plan Pt is a 53 yo female with a past medical history of GERD, chronic constipation, type 1 diabetes, and family hx of early [place] who presents to the hospital on 09/19 for general malaise, chest pain and abdominal pain that seemed to radiate to shoulders/shoulder blades, and feelings of dizziness, fatigue, 1) Stercoral proctitis - CT abd showed stercoral proctitis, - Received enema in ED with multiple large nonbloody bowel movements - Leukocytosis on admission - Cipro/flagyl for a total of 7 days. - recommend pt have f/u colonoscopy outpatient in probably 4-6 weeks 2) DKA/T1DM - Episode of DKA 09/21/23 AM, resolved - Resume home management - Mounjaro continuation should be discussed outpatient in setting of hepatobiliary pathology 3) Sinus tachycardia with hypotension - Likely reactive. - trop x2 wnl, EKG: normal sinus rhythm - CTA: no PE - Echocardiogram: hyperdynamic LV, mild-moderate tricuspid regurgitation, EF > 70%, no regional wall motion abnormalities noted 4)Biliary colic - RUQ US shows some GB sludge but no active cholecystitis - see above regarding Mounjaro use and potential contraindication - Consider outpatient HIDA scan. Would first give consideration to side effect from Mounjaro. 5) Liver lesions - CT abd showed at least 3 liver lesions favoring hemangiomas per radiology - recommend outpatient MRI for further evaluation upon discharge Total Time Total Time Spent Total Time Spent (In Minutes): see attending documentation Discharge Plan Discharge Items Patient Disposition: Home - Self-Care Reason For Visit: WEAKNESS, TACHYCARDIA Discharge Diagnosis: stercoral proctitis Activity: Resume your previous activity Non-emergency contact: Primary Care Provider Call non-emergency contact if: you have any medication questions, your symptoms worsen and you have a fever Follow-up/Referrals: Tashi Gill MD [Primary Care Provider] - Diet: Carb Count or DM1 Addtl Attending Provider Instructions: You were admitted to the hospital for weakness. You were treated with an enema for constipation and antibiotics. You will continue to take these antibiotics to complete a 7 day course when you get home. A discharge summary will be sent to your primary care physician to ensure continuity of care. Please bring this discharge summary with you to your next office appointment so that your provider can review it at that time. Follow-up appointments: Make a follow-up appointment with your PCP within the next week. It is very important that you follow up with them shortly after discharge from the hospital. Keep all your follow-up appointments as already scheduled. If you cannot make an appointment, notify your provider. Medications: Your medication list has been reviewed and reconciled upon discharge to ensure accuracy and continuity of care. An updated list of all your medications is included with your hospital discharge paperwork. Please review this list closely, and make note of any changes. We sent a new medication called ciprofloxacin med name to your pharmacy. Take ciprofloxacin (500mgmg) one tablet twice daily until finished. You should take your first dose this evening. We sent a new medication called metronidazole to your pharmacy. Take metronidazole (500mg) one tablet every 8 hours until finished. You should take your first dose of this medication this evening. If you have any issues filling these prescriptions, please call [phone] and ask to leave a message for Dr. Jose Chou. Take your medications as instructed; do not skip a dose of your medicines. Make sure all of your doctors know every medicine you are taking (including wkcv-kva-ttimlrm medicines, vitamins, and supplements). Call your primary care provider before taking any new medicines (including irmh-jia-qukefqa medicines, vitamins, and supplements), because some of these may interact with your current medications, or may make your symptoms worse. Tell your primary care provider if you cannot afford your medications. CONTACT YOUR PRIMARY CARE PROVIDER if you experience any of the following: Fever Increased abdominal pain or difficulty having a bowel movement Difficulty following your treatment plan, or difficulty taking medications CALL 911 OR GO TO THE EMERGENCY DEPARTMENT if you experience any of the foll owing: Sudden, severe abdominal pain or nausea/vomiting Severe chest pain, or chest pain that radiates (moves) to your jaw or arm Sudden, severe shortness of breath or difficulty breathing Thank you for allowing us to participate in your care. Pending Studies at Discharge: No Stand-Alone Forms: [facility] Order Prescriptions: New ciprofloxacin HCl 500 mg tablet 500 mg PO Q12H Qty: 12 0RF metronidazole 500 mg tablet 500 mg PO Q8H Qty: 18 0RF Continued (DME) Omnipod 5 G6 Pods (Gen 5) Cartridge See Rx Instructions .Route Qty: 10 11RF Rx Instructions: Change pod every 3 days; subq (DME) Omnipod 5 G6 Intro Kit (Gen 5) Cartridge See Rx Instructions .Route Qty: 1 0RF Rx Instructions: Change pod every 3 days; subq (DME) pen needle, diabetic [BD Ultra-Fine Patricia Pen Needle] 32 gauge x 5/32" needle See Dose Instructions .ROUTE .MEDSUPPLY Qty: 450 3RF Dose Instruction: As directed Rx Instructions: use 5 daily for multiple injections (DME) Ketostix Strip See Rx Instructions miscellaneous .MEDSUPPLY Qty: 50 5RF Rx Instructions: check for sick days and high blood sugars insulin glargine [Basaglar KwikPen U-100 Insulin] 100 unit/mL (3 mL) insulin pen 8 unit SQ HS insulin aspart U-100 [Novolog FlexPen U-100 Insulin] 100 unit/mL (3 mL) insulin pen 1 sliding scale dose subcut DAILY PRN (Reason: Other) Rx Instructions: with meals per sliding scale (DME) FreeStyle Raghavendra 2 Sensor Kit See Rx Instructions .ROUTE Rx Instructions: As directed cholecalciferol (vitamin D3) 1,000 unit capsule 1,000 - 2,000 units PO HS Patient Comments: 1,000 unit PO take 1 tablet in the summer, 2 tablets in the winter; Rx Instructions: 1,000 unit PO take 1 tablet in the summer, 2 tablets in the winter; cyanocobalamin (vitamin B-12) 1,000 mcg/mL solution 1,000 mcg IM UD Patient Comments: 1,000 mcg IM bi-weekly; Rx Instructions: 1,000 mcg IM bi-weekly; atorvastatin 20 mg tablet 10 mg PO HS Rx Instructions: original: 20 mg po hs 10 mg per patient Mounjaro 5 mg/0.5 mL pen injector 5 mg subcut Q7D Rx Instructions: weekly injection 21 day dose Discharge Orders: Discharge Order (Routine); Ordered 09/22/23 Ordered By: Jose Chou Admission Data Admit Date/Time: 09/20/23 23:35 Attending Provider: Majano,Irlanda Admit Provider: Li Watson Primary Care Provider: Tashi Gill Other Providers: Dmitri Mariee Other Interventions: Discharge Summary Assessment (RN) Last Done: 09/22/23 15:32 Supervising Physician Co-Signing Physician Notes Attending Physician Supervision Note: I independently interviewed and examined the patient and verified the tate history and physical, reviewed labs and image studies and agree with findings and care plan noted above. Resident Activity Tracking Resident Involvement: Resident Care Provided Care Provided: Adult Hospital Medicine
--- NOTE | 2023-09-24 10:16 | Coding Query ---
CODING QUERY To promote full compliance with coding requirements relating to patient care, provider participation is requested in all cases of heel seat trimmer uncertainty. Please assist us with the question(s) below: Clinical Indicators: H&P: * Vitals: Temp - 36.7 C; Pulse - 96; Resp - 16; BP - 70/49; Pulse Ox - 99 * Sepsis/hypotension/sinus tachycardia- * Likely secondary to proctocolitis and dehydration * Blood pressure initially 70/49, did improve with 3 L normal saline to 98/54 * Patient describes symptoms of disorientation and inability to follow commands when initially assessed * Patient also describes acute onset of rapid heart rate and palpitations Discharge Summary: * Stercoral proctocolitis * CT abd showed stercoral proctitis, * Received enema in ED with multiple large nonbloody bowel movements * Cipro/flagyl for a total of 7 days. Coding Question(s): Without the further mention of sepsis in the medical record, can you further clarify the diagnosis of sepsis as: * () Ruled in * () POA * () Ruled out * () Other (please specify) * () Unable to determine. Physician's Response(s): sepsis due to proctocolitis is ruled in Thank you, Janelle Crawford Principal Diagnosis: "that condition established after study, to be chiefly responsible for occasioning the admission of the patient to the hospital for care." Co-Existing Principal Diagnosis: "when two or more diagnoses equally meet the criteria for principal diagnosis as determined by the circumstances of admission, diagnostic work up, and/or therapy provided, and the Alphabetic Index, Tabular List, or another coding guideline does not provide sequencing direction, any one of the diagnoses may be sequenced first." "When the physician has documented what appears to be a current diagnosis in the body of the record, but has not included the diagnosis in the final diagnostic statement, the physician should be asked whether the diagnosis should be added." (Source Coding [facility] 2 QTR90. p3-4) ASHLEE
== END 2023-09-22 16:10 | disposition home or self-care (01) | DRG 872 ==
LOC: ED 15:51 → 4W 23:35 → SUATTDRO 23:35 → 4W 09-21 00:09

== ENCOUNTER 2024-02-27 19:18 | Inpatient (IN) ==
--- NOTE | 2024-02-27 19:37 | Emergency Department Note ---
Impression & Plan Colitis, Atypical chest pain, DKA (diabetic ketoacidosis) ED Provider Note Provider: Darshan Angeles MD CHIEF COMPLAINT: Weak, chest burning, lower abdominal pain, nausea and vomiting HISTORY OF PRESENT ILLNESS: Patient is a 53-year-old female history of type 1 diabetes and proctitis in the past presenting here today with reporting 2 to 3 days has been feeling a little under the weather. Told her today she has been having nausea and vomiting and had a large loose bowel movement earlier. No blood. Some the lower abdominal and rectal discomfort. Having some chest burning denied feeling very weak. No falls or syncope reported however. Denies shortness of breath. Denies fever. Similar episode in August when she was hospitalized. Denies any severe headache. Blood sugars have been pretty good during the day although in the last hour have increased into the 300s. No recent travel or sick contacts. No suspect food intake reported. Describes a burning sensation over the upper chest and shoulders. Really not able to walk much and has been brought in as she was so weak. PAST MEDICAL HISTORY: As noted above MEDICATIONS: Reviewed home medications SOCIAL HISTORY: PHYSICAL EXAM: GENERAL: alert and oriented in no acute distress on stretcher resting with eyes closed arousable to verbal stimulation Head: normocephalic and atraumatic EYES: No injection, discharge or icterus. EOMI. NECK: Trachea midline. ENT: Mucous membranes pink and moist. LUNGS: Airway patent. No retractions. Breath sounds clear with good air entry bilaterally. HEART: Regular rate and rhythm. No chest wall tenderness ABDOMEN: Soft and non-tender, without guarding or rebound. SKIN: Acyanotic, warm, dry, without rashes EXTREMITIES: Without swelling, tenderness or deformity NEUROLOGICAL: No focal deficits. No aphasia. No facial droop or slurred speech. Normal strength and tone in the extremities. Sensation to gross touch normal. EK bpm normal sinus rhythm. No PVC or PAC. No acute ST segment elevation or depression with QTc of 452. CONTINUOUS CARDIAC MONITORING: was ordered and showed a heart rate of 90s-100s bpm in normal sinus rhythm to sinus tachycardia Patient's laboratory studies and imaging reviewed. Differential includes Infection, dehydration, metabolic abnormality, hypo/hyperglycemia, electrolyte disturbance, anemia, hypoxia, cardiac sources, intracerebral event, toxicologic, neurologic, as well as other pathologies. IMPRESSION/MEDICAL DECISION MAKING: Reviewed hospitalization discharge summary from September 21. Patient at that time had transient DKA with stercoral proctitis and some hypotension. Was hypotensive here in triage. Patient not hypoxic however febrile. No significant abdominal tenderness but reports some lower abdominal to the rectal discomfort and some burning in the upper chest. Denies shortness of breath. Given IV fluid here and some Zofran for symptoms. Cultures lactate were obtained as well as basic blood work. Will complete CT imaging of the abdomen pelvis given her discomfort report as well as a CT of the chest to exclude underlying PE or other etiology with her chest complaint. EKG without findings of significant arrhythmia or STEMI. No significant focal weakness and doubt CVA or meningitis at this time. Resting with eyes closed but easily arousable. On blood work here lactate mildly elevated 2.3 here. No significant leukocytosis or anemia. Normal platelet count. Initial blood sugar 264. Mildly acidotic pH of 7-8. Mild anion gap of 14. No significant electrolyte abnormalities otherwise noted. No evidence of transaminitis. Normal troponin. Blood pressures somewhat tenuous but received 2 L of normal saline IV fluid resuscitation. Question mildly evolving DKA. No evidence of hepatitis or pancreatitis. Does not have OmniPod infusing insulin at this time. Discussed with pharmacy we will start a low-dose insulin infusion. Several doses of Zofran for nausea control. Negative negative respiratory viral panel here. Procalcitonin elevated and I doubt significant systemic infection. CTA of the chest without evidence of PE reported significant lung parenchymal abnormality on report. CT abdomen pelvis per radiology questions a nonspecific inflammatory infectious colitis. No perforation obstruction or abscess noted by radiology report. Given the unclear etiology of the colitis will cover with a dose of antibiotics empirically given Zosyn. Will bring in to the hospital given her complaints for further workup with poor intake, borderline DKA, and some borderline hypotension. Stool studies ordered. Blood pressure does improve while here in the emergency department. DIAGNOSIS: Nausea and vomiting, atypical chest pain, lower abdominal pain, weakness, DKA DISPOSITION: Hospitalist will evaluate Patient was agreeable with this plan. Critical Care I have personally spent 54 minutes of critical care time in the direct management of this patient. This includes bedside care, interpretation of diagnostic studies, and testing, discussion with consultants, patient, and family members, and other required patient management activities. These 54 minutes is in excess of all separately billable procedures. Past Med/Surg History Problem List (Updated 02/27/24 @ 23:38 by Jeannette Junior DO) Sepsis DKA (diabetic ketoacidosis) (Acute) Atypical chest pain (Acute) Colitis (Acute) Change in bowel habits Proctitis Proctitis Liver lesion Dyslipidemia Asymptomatic postmenopausal state Vitamin D deficiency KAYLEEN (iron deficiency anemia) Encounter for pre-operative examination Postmenopausal Lymphadenopathy of right cervical region Ear infection PVCs (premature ventricular contractions) wore holter monitor years ago--no meds--follows with Dr. 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 Marissa Cortés diabetes PVC's (premature ventricular contractions) wore holter monitor years ago--no meds--follows with Dr. Gerardo History of palpitations f/u dr. gerardo, [place]>yearly checkup Liver lesion dx 09/2023; had MRI as f/u and "no findings, nothing to worry about" Hx of colonic polyp Sinus tachycardia Acute hypotension hx, occurred during visit to ER 09/2023 at [place] Abdominal pain 09/2023, admitted to hospital for impaction resulting in sepsis, reason for upcoming procedure Hx of iron deficiency anemia Migraine History of COVID-19 04/09/21 @ [facility]--achy, cold/chills--no issues now History of hiatal hernia Chronic reflux esophagitis pt unsure about this; but "no issues with this" Uterine enlargement "quite a few years ago discovered" Breast neoplasm hx Surgical History History of wisdom tooth extraction H/O LEEP 02/18, persistent remberto 1/HPV positive, neg path. History of esophagogastroduodenoscopy (EGD) H/O colposcopy with cervical biopsy S/P colonoscopy Family History Mother Coronary heart disease Daughter Diabetes Brother Diabetes Cardiovascular disease Father Stroke Other No family history of adverse response to anesthesia Denies family history of Ovarian cancer Breast cancer Colorectal cancer Social History Smoking Status: Never smoker Second Hand Exposure: Yes (hx as child); Do You Dip or Chew Tobacco: No; Hx Alcohol Use: Yes Hx Substance Use: No Preferred Language: Sri Lankan Communication Ability: Effective Visual Impairment: No Limitations Hearing Ability: Normal Boiler Testing Technician Required: No Beliefs That Will Affect Care: None marital status: Current Living Situation: Spouse Feels Safe at Home: Yes Dental Care, Regularly: Yes Seatbelt Use: always Assistive Devices: Contacts Allergies Allergies Allergy/AdvReac Type Severity Reaction Status Date / Time No Known Drug Allergies Allergy Verified 01/24/24 10:19 Home Meds Home Medications Medication Instructions Recorded Confirmed cyanocobalamin (vitamin B-12) 1,000 mcg IM UD 12/23/18 02/27/24 1,000 mcg/mL injection solution flash glucose sensor (FreeStyle 09/06/23 02/27/24 Raghavendra 2 Sensor kit) atorvastatin 20 mg tablet 20 mg PO HS 09/24/23 02/27/24 Previous Rx's Medication Instructions Recorded acetone (urine) test (Ketostix #50 ea 10/13/22 strips) Omnipod 5 G6 Intro Kit (Gen 5) #1 ea 10/16/22 subcutaneous cartridge with controller (insulin pump cart,auto,BT-cntr) pen needle, diabetic 32 gauge x #450 ea 04/05/23 5/32" (BD Ultra-Fine Patricia Pen Needle) tirzepatide 5 mg/0.5 mL 5 mg (0.5 mL) subcut Q7D #6 mL 10/12/23 subcutaneous pen injector (Kamran) lorazepam 0.5 mg tablet 0.5 mg PO .COMPLEX PRN anxiety #2 10/16/23 tabs Novolog U-100 Insulin aspart 100 30 unit (0.3 mL) continuous 02/15/24 unit/mL subcutaneous solution subcutaneous infusion DAILY #10 mL (insulin aspart U-100) blood-glucose sensor (Dexcom G6 #3 ea 02/15/24 Sensor device) blood-glucose transmitter (Dexcom #1 ea 02/15/24 G6 Transmitter device) insulin pump cart,auto,BT,G6/7 #10 ea 02/15/24 (Omnipod 5 G6-G7 Pods (Gen 5) subcutaneous cartridge) Results & Data (ED) Vital Signs Vital Signs - 24 hr 02/27/24 19:23 02/27/24 19:39 02/27/24 19:39 Temperature 36.3 C L Temperature Source Temporal Artery Scan Pulse Rate 96 H 95 H Pulse Rate [Apical] 92 H Pulse Rate from SpO2 Sensor Respiratory Rate 17 18 Respiratory Effort / Characteristics Non-Labored Spontaneous Respiratory Depth Normal Normal Respiratory Pattern Regular Blood Pressure 80/47 L Blood Pressure [Right Arm] 93/53 L Blood Pressure Mean 58 Blood Pressure Mean [Right Arm] 66 Blood Pressure Position [Right Arm] Semi-fowlers Pulse Oximetry 98 96 Oxygen Delivery Method Room Air Room Air Sepsis Recent Fever Within 48 Hours No Sepsis New/Unexplained Change in Mental Status No Sepsis Action Taken by Nursing No Action Required 02/27/24 19:41 02/27/24 19:42 02/27/24 19:54 Temperature Temperature Source Pulse Rate 94 H 93 H 92 H Pulse Rate [Apical] Pulse Rate from SpO2 Sensor 92 H Respiratory Rate 19 18 26 H Respiratory Effort / Characteristics Respiratory Depth Respiratory Pattern Blood Pressure 80/39 L Blood Pressure [Right Arm] Blood Pressure Mean 52 Blood Pressure Mean [Right Arm] Blood Pressure Position [Right Arm] Pulse Oximetry 99 99 Oxygen Delivery Method Room Air Sepsis Recent Fever Within 48 Hours Sepsis New/Unexplained Change in Mental Status Sepsis Action Taken by Nursing 02/27/24 19:57 02/27/24 19:57 02/27/24 20:00 Temperature Temperature Source Pulse Rate 93 H Pulse Rate [Apical] 91 H Pulse Rate from SpO2 Sensor 93 H Respiratory Rate 24 17 Respiratory Effort / Characteristics Respiratory Depth Respiratory Pattern Blood Pressure 83/41 L 83/41 L Blood Pressure [Right Arm] 84/39 L Blood Pressure Mean 55 55 Blood Pressure Mean [Right Arm] 54 Blood Pressure Position [Right Arm] Semi-fowlers Pulse Oximetry 100 100 Oxygen Delivery Method Room Air Sepsis Recent Fever Within 48 Hours Sepsis New/Unexplained Change in Mental Status Sepsis Action Taken by Nursing 02/27/24 20:08 02/27/24 20:15 02/27/24 20:25 Temperature Temperature Source Pulse Rate Pulse Rate [Apical] 96 H 93 H Pulse Rate from SpO2 Sensor Respiratory Rate 26 H 31 H Respiratory Effort / Characteristics Non-Labored Spontaneous Respiratory Depth Normal Normal Respiratory Pattern Regular Regular Blood Pressure 84/43 L Blood Pressure [Right Arm] 85/38 L 81/41 L Blood Pressure Mean 55 Blood Pressure Mean [Right Arm] 53 54 Blood Pressure Position [Right Arm] Semi-fowlers Pulse Oximetry 99 100 Oxygen Delivery Method Room Air Room Air Sepsis Recent Fever Within 48 Hours Sepsis New/Unexplained Change in Mental Status Sepsis Action Taken by Nursing 02/27/24 20:26 02/27/24 20:30 02/27/24 20:35 Temperature Temperature Source Pulse Rate Pulse Rate [Apical] Pulse Rate from SpO2 Sensor Respiratory Rate Respiratory Effort / Characteristics Respiratory Depth Respiratory Pattern Blood Pressure 81/41 L 84/47 L 89/49 L Blood Pressure [Right Arm] Blood Pressure Mean 56 64 61 Blood Pressure Mean [Right Arm] Blood Pressure Position [Right Arm] Pulse Oximetry Oxygen Delivery Method Sepsis Recent Fever Within 48 Hours Sepsis New/Unexplained Change in Mental Status Sepsis Action Taken by Nursing 02/27/24 20:40 02/27/24 20:45 02/27/24 20:45 Temperature Temperature Source Pulse Rate 96 H Pulse Rate [Apical] Pulse Rate from SpO2 Sensor 96 H Respiratory Rate 21 Respiratory Effort / Characteristics Respiratory Depth Respiratory Pattern Blood Pressure 85/46 L 83/45 L Blood Pressure [Right Arm] Blood Pressure Mean 57 56 Blood Pressure Mean [Right Arm] Blood Pressure Position [Right Arm] Pulse Oximetry 100 Oxygen Delivery Method Sepsis Recent Fever Within 48 Hours Sepsis New/Unexplained Change in Mental Status Sepsis Action Taken by Nursing 02/27/24 20:50 02/27/24 20:55 02/27/24 20:56 Temperature Temperature Source Pulse Rate Pulse Rate [Apical] 95 H Pulse Rate from SpO2 Sensor Respiratory Rate 23 Respiratory Effort / Characteristics Non-Labored Spontaneous Respiratory Depth Normal Respiratory Pattern Regular Blood Pressure 82/45 L 89/43 L Blood Pressure [Right Arm] 89/43 L Blood Pressure Mean 55 53 Blood Pressure Mean [Right Arm] 58 Blood Pressure Position [Right Arm] Semi-fowlers Pulse Oximetry 100 Oxygen Delivery Method Room Air Sepsis Recent Fever Within 48 Hours Sepsis New/Unexplained Change in Mental Status Sepsis Action Taken by Nursing 02/27/24 21:10 02/27/24 21:10 02/27/24 21:15 Temperature Temperature Source Pulse Rate Pulse Rate [Apical] Pulse Rate from SpO2 Sensor Respiratory Rate Respiratory Effort / Characteristics Respiratory Depth Respiratory Pattern Blood Pressure 85/47 L 85/47 L 82/45 L Blood Pressure [Right Arm] Blood Pressure Mean 57 57 59 Blood Pressure Mean [Right Arm] Blood Pressure Position [Right Arm] Pulse Oximetry Oxygen Delivery Method Sepsis Recent Fever Within 48 Hours Sepsis New/Unexplained Change in Mental Status Sepsis Action Taken by Nursing 02/27/24 21:15 02/27/24 21:18 02/27/24 21:20 Temperature Temperature Source Pulse Rate 102 H Pulse Rate [Apical] Pulse Rate from SpO2 Sensor 102 H Respiratory Rate 21 Respiratory Effort / Characteristics Respiratory Depth Respiratory Pattern Blood Pressure 82/45 L 85/45 L Blood Pressure [Right Arm] Blood Pressure Mean 59 57 Blood Pressure Mean [Right Arm] Blood Pressure Position [Right Arm] Pulse Oximetry 100 Oxygen Delivery Method Sepsis Recent Fever Within 48 Hours Sepsis New/Unexplained Change in Mental Status Sepsis Action Taken by Nursing 02/27/24 21:21 02/27/24 21:25 02/27/24 21:25 Temperature Temperature Source Pulse Rate 102 H Pulse Rate [Apical] Pulse Rate from SpO2 Sensor 101 H Respiratory Rate 23 Respiratory Effort / Characteristics Respiratory Depth Respiratory Pattern Blood Pressure 99/54 L 99/54 L Blood Pressure [Right Arm] Blood Pressure Mean 73 73 Blood Pressure Mean [Right Arm] Blood Pressure Position [Right Arm] Pulse Oximetry 100 Oxygen Delivery Method Sepsis Recent Fever Within 48 Hours Sepsis New/Unexplained Change in Mental Status Sepsis Action Taken by Nursing 02/27/24 21:30 02/27/24 21:32 02/27/24 21:47 Temperature Temperature Source Pulse Rate Pulse Rate [Apical] 102 H 113 H Pulse Rate from SpO2 Sensor Respiratory Rate 20 20 Respiratory Effort / Characteristics Non-Labored Spontaneous Non-Labored Spontaneous Respiratory Depth Normal Normal Respiratory Pattern Regular Regular Blood Pressure 84/46 L Blood Pressure [Right Arm] 84/46 L 83/50 L Blood Pressure Mean 62 Blood Pressure Mean [Right Arm] 58 61 Blood Pressure Position [Right Arm] Semi-fowlers Pulse Oximetry 100 100 Oxygen Delivery Method Room Air Room Air Sepsis Recent Fever Within 48 Hours Sepsis New/Unexplained Change in Mental Status Sepsis Action Taken by Nursing 02/27/24 21:47 02/27/24 21:47 02/27/24 21:51 Temperature Temperature Source Pulse Rate 109 H Pulse Rate [Apical] Pulse Rate from SpO2 Sensor 109 H Respiratory Rate 17 Respiratory Effort / Characteristics Respiratory Depth Respiratory Pattern Blood Pressure 83/50 L 83/50 L Blood Pressure [Right Arm] Blood Pressure Mean 63 63 Blood Pressure Mean [Right Arm] Blood Pressure Position [Right Arm] Pulse Oximetry 99 Oxygen Delivery Method Sepsis Recent Fever Within 48 Hours Sepsis New/Unexplained Change in Mental Status Sepsis Action Taken by Nursing 02/27/24 22:00 02/27/24 22:02 02/27/24 22:41 Temperature 36.6 C Temperature Source Oral Pulse Rate 105 H Pulse Rate [Apical] 105 H Pulse Rate from SpO2 Sensor 105 H Respiratory Rate 17 20 Respiratory Effort / Characteristics Respiratory Depth Respiratory Pattern Blood Pressure 87/41 L Blood Pressure [Right Arm] 88/43 L Blood Pressure Mean 61 Blood Pressure Mean [Right Arm] 58 Blood Pressure Position [Right Arm] Lying Pulse Oximetry 100 99 Oxygen Delivery Method Room Air Sepsis Recent Fever Within 48 Hours Sepsis New/Unexplained Change in Mental Status Sepsis Action Taken by Nursing 02/27/24 23:13 02/27/24 23:35 Temperature Temperature Source Pulse Rate 93 H Pulse Rate [Apical] 96 H Pulse Rate from SpO2 Sensor Respiratory Rate 21 Respiratory Effort / Characteristics Non-Labored Spontaneous Respiratory Depth Normal Respiratory Pattern Regular Blood Pressure Blood Pressure [Right Arm] 106/53 L Blood Pressure Mean Blood Pressure Mean [Right Arm] 70 Blood Pressure Position [Right Arm] Semi-fowlers Pulse Oximetry 100 Oxygen Delivery Method Room Air Sepsis Recent Fever Within 48 Hours Sepsis New/Unexplained Change in Mental Status Sepsis Action Taken by Nursing Laboratory Data 02/27/24 19:35 02/27/24 19:35 Lab Results 02/27/24 02/27/24 02/27/24 Range/Units 19:35 19:38 19:52 WBC 8.89 (4.8-10.8) K/ul RBC 4.22 (4.20-5.40) M/uL Hgb 12.8 (12.0-16.0) g/dl POC Hgb 11.9 L (12.0-16.0) g/dl Hct 36.8 L (37.0-47.0) % POC Hct 35 L (37-47) % MCV 87.2 (80.0-100.0) fL MCH 30.3 (25.0-34.0) pg MCHC 34.8 (32.0-36.0) g/dL RDW Std Deviation 39.5 (36.4-46.3) fL RDW Coeff of Franny 12.4 (11.5-14.5) % Plt Count 184 (130-400) K/uL MPV 11.5 (9.4-12.4) fL Immature Gran % (Auto) 0.4 % Neut % (Auto) 75.4 % Lymph % (Auto) 19.3 % [place] % (Auto) 3.1 % Eos % (Auto) 1.2 % Baso % (Auto) 0.6 % Neut # (Auto) 6.69 H (1.40-6.50) K/uL Lymph # (Auto) 1.72 (1.20-3.40) K/uL [place] # (Auto) 0.28 (0.11-0.59) K/uL Eos # (Auto) 0.11 (0.00-0.50) K/uL Baso # (Auto) 0.05 (0.00-0.20) K/uL Immature Gran # (Auto) 0.04 (0.01-0.20) K/uL ESR 3 (0-30) mm/hr PT 11.0 (9.0-12.0) Seconds INR 1.0 (0.9-1.1) VBG pH 7.28 L (7.36-7.41) VBG pCO2 43 (38-50) mmHg VBG pO2 48 mmHg VBG HCO3 20 mmol/L VBG O2 Saturation 75.4 % VBG Base Excess -6.4 mEq/L POC Sodium 136 (135-144) mmol/L Sodium 137 (136-145) mmol/L POC Potassium 3.9 (3.3-5.0) mmol/L Potassium 4.0 (3.5-5.1) mmol/L POC Chloride 103 (101-112) mmol/L Chloride 102 (98-107) mmol/L Carbon Dioxide 21 (21-32) mmol/L POC Total CO2 21 L (24-31) mmol/L Anion Gap 14 H (3-11) POC Anion Gap 16.0 (16-25) mmol/L POC BUN 20 H (7-18) mg/dl BUN 19 (6-23) mg/dl Creatinine 0.82 (0.6-1.2) mg/dl POC Creatinine 0.9 (0.6-1.3) mg/dl Est Cr Clr Drug Dosing 78.2 ml/min eGFR 84.42 BUN/Creatinine Ratio 23.2 H (10-20) Glucose 270 H (70-99(Fasting)) mg/dl POC Glucose (70-99) mg/dl POC Glucose (other) 264 H (70-99) mg/dl Lactate 2.3 H* (0.4-2.0) mmol/L Calcium 9.7 (8.6-10.3) mg/dl POC Ioniz Calcium Ester 1.14 (1.12-1.32) mmol/l Magnesium 1.7 (1.7-2.4) mg/dl Total Bilirubin 0.7 (0.2-1.0) mg/dl AST 26 (13-39) U/L ALT 17 (7-52) U/L Alkaline Phosphatase 73 (34-104) U/L Troponin I High Sens 4.3 (0-14) pg/ml C-Reactive Protein < 0.50 (0-0.5) mg/dl Total Protein 6.6 (6.0-8.3) gm/dl Albumin 4.3 (3.4-5.0) gm/dl Globulin 2.3 L (2.5-4.0) gm/dl Albumin/Globulin Ratio 1.9 (0.9-2) Lipase 17 (11-82) U/L Procalcitonin 0.03 (0-0.5) ng/ml TSH 1.418 (0.300-4.500) uIu/ml Adenovirus (PCR) Not Detected (NotDetected) B. pertussis DNA (PCR) Not Detected (NotDetected) B.parapertussis DNA PCR Not Detected (NotDetected) C. pneumoniae DNA (PCR) Not Detected (NotDetected) Coronavirus OC43 (PCR) Not Detected (NotDetected) Coronavirus HKU1 (PCR) Not Detected (NotDetected) Coronavirus 229E (PCR) Not Detected (NotDetected) SARS-CoV-2 (PCR) Not Detected (NotDetected) Coronavirus NL63 (PCR) Not Detected (NotDetected) Human Metapneumovir PCR Not Detected (NotDetected) Influenza Type A (PCR) Not Detected (NotDetected) Influenza Type B (PCR) Not Detected (NotDetected) M. pneumoniae (PCR) Not Detected (NotDetected) Parainfluenza 1 (PCR) Not Detected (NotDetected) Parainfluenza 2 (PCR) Not Detected (NotDetected) Parainfluenza 3 (PCR) Not Detected (NotDetected) Parainfluenza 4 (PCR) Not Detected (NotDetected) RSV (PCR) Not Detected (NotDetected) Entero/Rhino (PCR) Not Detected (NotDetected) 02/27/24 02/27/24 02/27/24 Range/Units 21:52 21:59 23:38 WBC (4.8-10.8) K/ul RBC (4.20-5.40) M/uL Hgb (12.0-16.0) g/dl POC Hgb (12.0-16.0) g/dl Hct (37.0-47.0) % POC Hct (37-47) % MCV (80.0-100.0) fL MCH (25.0-34.0) pg MCHC (32.0-36.0) g/dL RDW Std Deviation (36.4-46.3) fL RDW Coeff of Franny (11.5-14.5) % Plt Count (130-400) K/uL MPV (9.4-12.4) fL Immature Gran % (Auto) % Neut % (Auto) % Lymph % (Auto) % [place] % (Auto) % Eos % (Auto) % Baso % (Auto) % Neut # (Auto) (1.40-6.50) K/uL Lymph # (Auto) (1.20-3.40) K/uL [place] # (Auto) (0.11-0.59) K/uL Eos # (Auto) (0.00-0.50) K/uL Baso # (Auto) (0.00-0.20) K/uL Immature Gran # (Auto) (0.01-0.20) K/uL ESR (0-30) mm/hr PT (9.0-12.0) Seconds INR (0.9-1.1) VBG pH (7.36-7.41) VBG pCO2 (38-50) mmHg VBG pO2 mmHg VBG HCO3 mmol/L VBG O2 Saturation % VBG Base Excess mEq/L POC Sodium (135-144) mmol/L Sodium (136-145) mmol/L POC Potassium (3.3-5.0) mmol/L Potassium (3.5-5.1) mmol/L POC Chloride (101-112) mmol/L Chloride (98-107) mmol/L Carbon Dioxide (21-32) mmol/L POC Total CO2 (24-31) mmol/L Anion Gap (3-11) POC Anion Gap (16-25) mmol/L POC BUN (7-18) mg/dl BUN (6-23) mg/dl Creatinine (0.6-1.2) mg/dl POC Creatinine (0.6-1.3) mg/dl Est Cr Clr Drug Dosing ml/min eGFR BUN/Creatinine Ratio (10-20) Glucose (70-99(Fasting)) mg/dl POC Glucose 261 H 275 H (70-99) mg/dl POC Glucose (other) (70-99) mg/dl Lactate 2.1 H* (0.4-2.0) mmol/L Calcium (8.6-10.3) mg/dl POC Ioniz Calcium Ester (1.12-1.32) mmol/l Magnesium (1.7-2.4) mg/dl Total Bilirubin (0.2-1.0) mg/dl AST (13-39) U/L ALT (7-52) U/L Alkaline Phosphatase (34-104) U/L Troponin I High Sens (0-14) pg/ml C-Reactive Protein (0-0.5) mg/dl Total Protein (6.0-8.3) gm/dl Albumin (3.4-5.0) gm/dl Globulin (2.5-4.0) gm/dl Albumin/Globulin Ratio (0.9-2) Lipase (11-82) U/L Procalcitonin (0-0.5) ng/ml TSH (0.300-4.500) uIu/ml Adenovirus (PCR) (NotDetected) B. pertussis DNA (PCR) (NotDetected) B.parapertussis DNA PCR (NotDetected) C. pneumoniae DNA (PCR) (NotDetected) Coronavirus OC43 (PCR) (NotDetected) Coronavirus HKU1 (PCR) (NotDetected) Coronavirus 229E (PCR) (NotDetected) SARS-CoV-2 (PCR) (NotDetected) Coronavirus NL63 (PCR) (NotDetected) Human Metapneumovir PCR (NotDetected) Influenza Type A (PCR) (NotDetected) Influenza Type B (PCR) (NotDetected) M. pneumoniae (PCR) (NotDetected) Parainfluenza 1 (PCR) (NotDetected) Parainfluenza 2 (PCR) (NotDetected) Parainfluenza 3 (PCR) (NotDetected) Parainfluenza 4 (PCR) (NotDetected) RSV (PCR) (NotDetected) Entero/Rhino (PCR) (NotDetected) Administered Medications Insulin Human Regular 250 (units/ Sodium Chloride) 250 mls @ 2.2 mls/hr IV .Q24H DIANA; Protocol Stop: 03/28/24 21:44 Last Titration: 02/27/24 23:40 Dose: 2.2 units/hr, 2.2 mls/hr Documented By: LILY Co-signed By: JT Admin: 02/27/24 22:32 Dose: 1.6 units/hr, 1.6 mls/hr Documented By: YOVANY Co-signed By: DRE Sodium Chloride (Nss) 1,000 mls @ 125 mls/hr IV .Q8H [facility] Stop: 02/28/24 15:44 Last Admin: 02/28/24 00:09 Dose: 125 mls/hr Documented By: LILY Discontinued Medications Sodium Chloride (Nss) 1,000 mls @ 999 mls/hr IV .Q1H1M ONE Stop: 02/27/24 20:36 Last Infusion: 02/27/24 21:32 Dose: Infused Documented By: Admin: 02/27/24 20:23 Dose: 999 mls/hr Documented By: Infusion: 02/27/24 20:23 Dose: Infused Documented By: Admin: 02/27/24 19:42 Dose: 999 mls/hr Documented By: YOVANY Sodium Chloride (Nss) 1,000 mls @ 999 mls/hr IV .Q1H1M ONE Stop: 02/27/24 21:08 Last Infusion: 02/27/24 21:32 Dose: Infused Documented By: Admin: 02/27/24 20:27 Dose: 999 mls/hr Documented By: YOVANY Piperacillin Sod/Tazobactam Sod (Zosyn) 4.5 gm in 100 mls @ 200 mls/hr IV NOW ONE; Protocol Stop: 02/27/24 22:55 Last Infusion: 02/27/24 23:52 Dose: Infused Documented By: Admin: 02/27/24 23:08 Dose: 200 mls/hr Documented By: YOVANY Sodium Chloride (Nss) 500 mls @ 999 mls/hr IV .Q31M ONE Stop: 02/27/24 23:04 Last Infusion: 02/28/24 00:08 Dose: Infused Documented By: Admin: 02/27/24 22:47 Dose: 999 mls/hr Documented By: YOVANY Insulin Human Regular (Novolin-R Bolus From Bag) 1.5 units IV ONE ONE Stop: 02/27/24 22:01 Last Admin: 02/27/24 22:38 Dose: 1.5 units Documented By: YOVANY Co-signed By: DRE Ioversol (Optiray 320 125ml) 116 ml IV ONCE ONE Stop: 02/27/24 21:42 Last Admin: 02/27/24 21:42 Dose: 116 ml Documented By: KRYSTLE Meyers (Moderate Stress Level ) 1 each N/A ONE ONE Stop: 02/27/24 21:41 Last Admin: 02/27/24 22:43 Dose: Not Given Documented By: YOVANY Meyers (Insulin Protocol Goal Range ) 1 each N/A ONE ONE Stop: 02/27/24 21:41 Last Admin: 02/27/24 22:44 Dose: Not Given Documented By: YOVANY Meyers (Stat Iv Infusion Titration Per Protocol) 1 each N/A NOW STA Stop: 02/27/24 21:41 Last Admin: 02/27/24 22:44 Dose: Not Given Documented By: YOVANY Ondansetron HCl (Ondansetron Inj 2 Mg/Ml 2 Ml Vial) 4 mg IV NOW STA Stop: 02/27/24 19:38 Last Admin: 02/27/24 19:49 Dose: 4 mg Documented By: YOVANY Ondansetron HCl (Ondansetron Inj 2 Mg/Ml 2 Ml Vial) 4 mg IV NOW STA Stop: 02/27/24 20:40 Last Admin: 02/27/24 21:01 Dose: 4 mg Documented By: YOVANY Imaging Data Radiologist's Impression: Abdomen/Pelvis CT 02/27/24 19:32 Exam(s): CT ABDOMEN + PELVIS With Contrast IV Amt: 116 cc opti 320 EXAM: CT Abdomen and Pelvis With Intravenous Contrast CLINICAL HISTORY: Reason for exam: abd pain, weak, CP. TECHNIQUE: Axial computed tomography images of the abdomen and pelvis with intravenous contrast. CTDI is 33.62 mGy and DLP is 1114.77 mGy-cm. Automated exposure control was utilized for the study. A dose lowering technique was utilized adhering to the principles of ALARA. CONTRAST: Patient received 116 cc opti 320 of IV contrast COMPARISON: No relevant prior studies available. FINDINGS: ABDOMEN: Liver: Unremarkable. Gallbladder and bile ducts: Unremarkable. Pancreas: Unremarkable. Spleen: Unremarkable. Adrenals: Unremarkable. Kidneys and ureters: Unremarkable. No obstructing stones. No hydronephrosis. Stomach and bowel: Colonic mucosal thickening consistent with nonspecific infectious or inflammatory colitis. No perforation, obstruction, or abscess. PELVIS: Appendix: No findings to suggest acute appendicitis. Bladder: Unremarkable. Reproductive: Unremarkable as visualized. ABDOMEN and PELVIS: Intraperitoneal space: Unremarkable. No free air. No significant fluid collection. Bones/joints: No acute fracture. Soft tissues: Body wall edema. Vasculature: Unremarkable. Lymph nodes: Unremarkable. IMPRESSION: Colonic mucosal thickening consistent with nonspecific infectious or inflammatory colitis. No perforation, obstruction, or abscess. Electronically signed by: Chaparro Solis MD 02/27/24 22:19 PM Chest CTA 02/27/24 19:32 Exam(s): CTA CHEST IV Amt: 116 cc opti 320 EXAM: CT Angiography Chest With Intravenous Contrast CLINICAL HISTORY: Reason for exam: PE, CP, weak. TECHNIQUE: Axial computed tomographic angiography images of the chest with intravenous contrast. CTDI is 33.62 mGy and DLP is 1114.77 mGy-cm. Automated exposure control was utilized for the study. A dose lowering technique was utilized adhering to the principles of ALARA. MIP reconstructed images were created and reviewed. COMPARISON: CTA chest 09/20/2023 FINDINGS: Pulmonary arteries: No pulmonary embolism. Aorta: No acute findings. Normal caliber. No dissection. Lungs: Unremarkable. Pleural space: Unremarkable. Heart: Unremarkable. Bones/joints: No acute fracture. Soft tissues: Unremarkable. Lymph nodes: Unremarkable. IMPRESSION: No pulmonary embolism. Electronically signed by: Chaparro Solis MD 02/27/24 22:02 PM Chest X-Ray 02/27/24 19:32 Exam(s): XR CXR 1 VIEW EXAM: XR Chest, 1 View CLINICAL HISTORY: Reason for exam: weakness, cp. TECHNIQUE: Frontal view of the chest. COMPARISON: 09/20/2023 FINDINGS: Lungs: No consolidation. No overt edema. Pleural space: No pleural effusion. No pneumothorax. Heart: Unremarkable. No cardiomegaly. IMPRESSION: No acute cardiopulmonary abnormality. Electronically signed by: Chaparro Solis MD 02/27/24 21:47 PM Discharge Plan Visit Data Chief Complaint: Vomiting Stated Complaint: VOMITING, WEAKNESS, OUT OF IT ED Provider: Darshan Angeles Discharge Problem: Colitis, Atypical chest pain, DKA (diabetic ketoacidosis) Patient Disposition: Being Evaluated by Hospitalist Forms Stand Alone Forms: [facility] Prescriptions Prescriptions: No Action (DME) Omnipod 5 G6 Intro Kit (Gen 5) Cartridge See Rx Instructions .Route Qty: 1 0RF Rx Instructions: Change pod every 3 days; subq (DME) pen needle, diabetic [BD Ultra-Fine Patricia Pen Needle] 32 gauge x 5/32" needle See Dose Instructions .ROUTE .MEDSUPPLY Qty: 450 3RF Dose Instruction: As directed Rx Instructions: use 5 daily for multiple injections atorvastatin 20 mg tablet 20 mg PO HS Mounjaro 5 mg/0.5 mL pen injector 5 mg subcut Q7D Qty: 6 1RF Patient Comments: fridays Rx Instructions: weekly injection 21 day dose lorazepam 0.5 mg tablet 0.5 mg PO .COMPLEX PRN (Reason: anxiety) Qty: 2 0RF Rx Instructions: take one tablet 30 minutes prior to MRI...may take additional 1 tablet at time of MRI if needed. insulin aspart U-100 [Novolog U-100 Insulin aspart] 100 unit/mL solution 30 unit continuous subcutaneous infusion DAILY Qty: 10 3RF Rx Instructions: for use in insulin pump/pod; may use up to 30 units daily (DME) Omnipod 5 G6-G7 Pods (Gen 5) Cartridge See Rx Instructions .Route Qty: 10 11RF Rx Instructions: change pods every 3 days (DME) Dexcom G6 Sensor Device See Rx Instructions .ROUTE .MEDSUPPLY Qty: 3 11RF Rx Instructions: change sensor every 10 days (DME) Dexcom G6 Transmitter Device See Rx Instructions .ROUTE .MEDSUPPLY Qty: 1 3RF Rx Instructions: change tranmitter every 90 days (DME) Ketostix Strip See Rx Instructions miscellaneous .MEDSUPPLY Qty: 50 5RF Rx Instructions: check for sick days and high blood sugars (DME) FreeStyle Raghavendra 2 Sensor Kit See Rx Instructions .Route Rx Instructions: As directed cyanocobalamin (vitamin B-12) 1,000 mcg/mL solution 1,000 mcg IM UD Patient Comments: 1,000 mcg IM bi-weekly; fridays Rx Instructions: 1,000 mcg IM bi-weekly; Referrals Referrals: ProTashi MD [Primary Care Provider] -
[2024-02-27] MEDS: SODIUM CHLORIDE 0.9% 1,000 ML IV ONE ×2 (19:42→20:27)
[2024-02-27] MEDS: ONDANSETRON INJ 2 MG/ML 2 ML VIAL IV STA ×2 (19:49→21:01)
[2024-02-27 19:50] LABS: Basophils # (auto) 0.05 K/uL (0.00-0.20); Basophils % (auto) 0.6 %; Eosinophils # (auto) 0.11 K/uL (0.00-0.50); Eosinophils % (auto) 1.2 %; Hematocrit (blood only) 36.8 % (37.0-47.0); Hemoglobin 12.8 g/dl (12.0-16.0); Immature Granulocytes # (auto) 0.04 K/uL (0.01-0.20); Immature Granulocytes % (auto) 0.4 %; Lymphocytes # (auto) 1.72 K/uL (1.20-3.40); Lymphocytes % (auto) 19.3 %; Mean Corpuscular Hemoglobin 30.3 pg (25.0-34.0); Mean Corpuscular Hgb Conc 34.8 g/dL (32.0-36.0); Mean Corpuscular Volume 87.2 fL (80.0-100.0); Mean Platelet Volume 11.5 fL (9.4-12.4); Monocytes # (auto) 0.28 K/uL (0.11-0.59); Monocytes % (auto) 3.1 %; Neutrophils # (auto) 6.69 K/uL (1.40-6.50); Neutrophils % (auto) 75.4 %; Platelet Count 184 K/uL (130-400); RDW Coefficient of Variation 12.4 % (11.5-14.5); RDW Standard Deviation 39.5 fL (36.4-46.3); Red Blood Count 4.22 M/uL (4.20-5.40); White Blood Count 8.89 K/ul (4.8-10.8)
[2024-02-27 19:56] LABS: iSTAT Creatinine 0.9 mg/dl (0.6-1.3); iSTAT Hemoglobin 11.9 g/dl (12.0-16.0); iSTAT Ionized Calcium 1.14 mmol/l (1.12-1.32); iSTAT Potassium 3.9 mmol/L (3.3-5.0)
[2024-02-27 20:01] LABS: Base Excess VBG -6.4 mEq/L; HCO3 VBG 20 mmol/L; Oxygen Saturation VBG 75.4 %; PCO2 VBG 43 mmHg (38-50); PO2 VBG 48 mmHg; pH VBG 7.28 (7.36-7.41)
[2024-02-27 20:07] LABS: Alanine Aminotransferase 17 U/L (7-52); Albumin Globulin Ratio 1.9 (0.9-2); Albumin Level 4.3 gm/dl (3.4-5.0); Alkaline Phosphatase 73 U/L (34-104); Anion Gap 14 (3-11); Aspartate Aminotransferase 26 U/L (13-39); BUN Creatinine Ratio 23.2 (10-20); Bilirubin,Total 0.7 mg/dl (0.2-1.0); Blood Urea Nitrogen 19 mg/dl (6-23); Calcium 9.7 mg/dl (8.6-10.3); Carbon Dioxide 21 mmol/L (21-32); Chloride 102 mmol/L (98-107); Creatinine Clr Calc Pharmacy 78.2 ml/min; Globulin 2.3 gm/dl (2.5-4.0); Glucose 270 mg/dl (70-99(Fasting)); Magnesium 1.7 mg/dl (1.7-2.4); Sodium 137 mmol/L (136-145); Total Protein 6.6 gm/dl (6.0-8.3)
[2024-02-27 20:15] LABS: Troponin I High Sensitivity 4.3 pg/ml (0-14)
[2024-02-27 20:25] LABS: Thyroid Stimulating Hormone 1.418 uIu/ml (0.300-4.500)
[2024-02-27 20:45] LABS: Lipase 17 U/L (11-82)
[2024-02-27 20:52] LABS: Adenovirus PCR Not Detected (NotDetected); Bordetella parapertussis PCR Not Detected (NotDetected); Bordetella pertussis PCR Not Detected (NotDetected); Chlamydia pneumoniae PCR Not Detected (NotDetected); Coronavirus 229E PCR Not Detected (NotDetected); Coronavirus CoV-2 (COVID19)PCR Not Detected (NotDetected); Coronavirus HKU1 PCR Not Detected (NotDetected); Coronavirus NL63 PCR Not Detected (NotDetected); Coronavirus OC43PCR Not Detected (NotDetected); Human Metapneumovirus PCR Not Detected (NotDetected); Influenza A PCR Not Detected (NotDetected); Influenza B PCR Not Detected (NotDetected); Mycoplasma pneumoniae PCR Not Detected (NotDetected); Parainfluenza Virus 1 PCR Not Detected (NotDetected); Parainfluenza Virus 2 PCR Not Detected (NotDetected); Parainfluenza Virus 3 PCR Not Detected (NotDetected); Parainfluenza Virus 4 PCR Not Detected (NotDetected); Respiratory Syncytial VirusPCR Not Detected (NotDetected); Rhinovirus/Enterovirus PCR Not Detected (NotDetected)
[2024-02-27] MEDS: OPTIRAY 320 125ml IV ONE (21:42)
--- NOTE | 2024-02-27 21:48 | XRay Report ---
Exam(s): XR CXR 1 VIEW EXAM: XR Chest, 1 View CLINICAL HISTORY: Reason for exam: weakness, cp. TECHNIQUE: Frontal view of the chest. COMPARISON: 09/20/2023 FINDINGS: Lungs: No consolidation. No overt edema. Pleural space: No pleural effusion. No pneumothorax. Heart: Unremarkable. No cardiomegaly. IMPRESSION: No acute cardiopulmonary abnormality. Electronically signed by: Chaparro Solis MD 02/27/24 21:47 PM
[2024-02-27] MEDS ORDERED: GLUCAGON FOR INJ 1 MG VIAL SQ PRN (22:00)
[2024-02-27] MEDS ORDERED: GLUCOSE 40% GEL 15 GM TUBE PO PRN (22:00)
[2024-02-27] MEDS ORDERED: CARBOHYDRATES FOR HYPOGLYCEMIA PO PRN (22:00)
[2024-02-27] MEDS ORDERED: DEXTROSE 50% 50 ML SYRINGE IV PRN (22:00)
[2024-02-27] MEDS ORDERED: GLUCOSE 10 TAB/TUBE PO PRN (22:00)
--- NOTE | 2024-02-27 22:03 | CT Scan Report ---
Exam(s): CTA CHEST IV Amt: 116 cc opti 320 EXAM: CT Angiography Chest With Intravenous Contrast CLINICAL HISTORY: Reason for exam: PE, CP, weak. TECHNIQUE: Axial computed tomographic angiography images of the chest with intravenous contrast. CTDI is 33.62 mGy and DLP is 1114.77 mGy-cm. Automated exposure control was utilized for the study. A dose lowering technique was utilized adhering to the principles of ALARA. MIP reconstructed images were created and reviewed. COMPARISON: CTA chest 09/20/2023 FINDINGS: Pulmonary arteries: No pulmonary embolism. Aorta: No acute findings. Normal caliber. No dissection. Lungs: Unremarkable. Pleural space: Unremarkable. Heart: Unremarkable. Bones/joints: No acute fracture. Soft tissues: Unremarkable. Lymph nodes: Unremarkable. IMPRESSION: No pulmonary embolism. Electronically signed by: Chaparro Solis MD 02/27/24 22:02 PM
--- NOTE | 2024-02-27 22:20 | CT Scan Report ---
Exam(s): CT ABDOMEN + PELVIS With Contrast IV Amt: 116 cc opti 320 EXAM: CT Abdomen and Pelvis With Intravenous Contrast CLINICAL HISTORY: Reason for exam: abd pain, weak, CP. TECHNIQUE: Axial computed tomography images of the abdomen and pelvis with intravenous contrast. CTDI is 33.62 mGy and DLP is 1114.77 mGy-cm. Automated exposure control was utilized for the study. A dose lowering technique was utilized adhering to the principles of ALARA. CONTRAST: Patient received 116 cc opti 320 of IV contrast COMPARISON: No relevant prior studies available. FINDINGS: ABDOMEN: Liver: Unremarkable. Gallbladder and bile ducts: Unremarkable. Pancreas: Unremarkable. Spleen: Unremarkable. Adrenals: Unremarkable. Kidneys and ureters: Unremarkable. No obstructing stones. No hydronephrosis. Stomach and bowel: Colonic mucosal thickening consistent with nonspecific infectious or inflammatory colitis. No perforation, obstruction, or abscess. PELVIS: Appendix: No findings to suggest acute appendicitis. Bladder: Unremarkable. Reproductive: Unremarkable as visualized. ABDOMEN and PELVIS: Intraperitoneal space: Unremarkable. No free air. No significant fluid collection. Bones/joints: No acute fracture. Soft tissues: Body wall edema. Vasculature: Unremarkable. Lymph nodes: Unremarkable. IMPRESSION: Colonic mucosal thickening consistent with nonspecific infectious or inflammatory colitis. No perforation, obstruction, or abscess. Electronically signed by: Chaparro Solis MD 02/27/24 22:19 PM
[2024-02-27] MEDS: INSULIN REGULAR 250 UNITS in SODIUM CHLORIDE 0.9% 247.5 ML IV SCH (22:32)
[2024-02-27] MEDS: NovoLIN-R BOLUS FROM BAG IV ONE (22:38)
[2024-02-27] MEDS: MODERATE STRESS LEVEL ONE (22:43)
[2024-02-27] MEDS: STAT IV Infusion **Titration per Protocol STA (22:44)
[2024-02-27] MEDS: INSULIN PROTOCOL GOAL RANGE ONE (22:44)
[2024-02-27] MEDS: SODIUM CHLORIDE 0.9% 500 ML IV ONE (22:47)
[2024-02-27 22:56] LABS: C Reactive Protein < 0.50 mg/dl (0-0.5)
[2024-02-27] MEDS: PIPERACILLIN/TAZOBACTAM 4.5 GM/100 ML BAG IV ONE (23:08)
--- NOTE | 2024-02-27 23:41 | History & Physical Report ---
Date of Service February 27, 2024 Assessment & Plan (1) Sepsis: Plan: - SIRS+ -> tachycardic, tachypneic; Etiology- GI? - CT A&P with Colonic mucosal thickening consistent with nonspecific infectious or inflammatory colitis - s/p 3L IVF with improvement in BPs - continue NSS @125ml/hr for an additional 2L - colonoscopy 01/2024 without abnormal findings - given her profound hypotension on presentation continue with Zosyn; can likely deescalate tomorrow pending stability - Zofran 4mg q4h prn for nausea - stool studies pending (2) DKA (diabetic ketoacidosis): Plan: - questionable DKA on admission- BG elevated to 275, with anion gap= 14 - started in insulin gtt -> continue pending stability and improvement in anion gap- waldo will be able to transition to SubQ soon - q4 BMP with insulin gtt (3) Atypical chest pain: Plan: - trop= 4.3 - EKG with NSR without acute ischemic changes - CTA chest without acute pathology - pain has resolved, similar pain with episode 09/2023 Plan Chronic Stable: HLD: continue statin Diet: DM1 as tolerated Code: Full VTE Prophylaxis: Lovenox Dispo: PCU History of Present Illness Primary Care Provider: Tashi Gill MD 53 year old female with a past medical history of DM1 presenting with weakness/lethargy/atypical chest pain. HAs felt off for the past 2-3 days. Some nausea/vomiting. Some lower abdominal pain. She states that she was driving this afternoon when symptoms started. Discomfort in chest that radiates to shoulder blade, fatigue, lethargy. had to come pick her up and brought her to ER. She states that she had a very similar episode in 09/2023- then was ultimately treated for proctitis. When I saw pt she said she was feeling much better after IVF. notes that she is less lethargic and overall looks better. Denies chest pain, dyspnea, nausea, abdominal pain at present. ED Course Significant for: CBC unremarkable. VBG with pH= 7.28, otherwise wnl. A nion Gap= 14, BG= 275. Lactate 2.3-> 2.1. Resp biofire negative. Procal= 0.03. CXR/CTA chest without acute pathology. CT A&P with Colonic mucosal thickening consistent with nonspecific infectious or inflammatory colitis. S/p 3L IVF with improvement in BP 80s/50s-> 100s/50s. Zosyn. Started on insulin gtt. Allergies Allergy/AdvReac Type Severity Reaction Status Date / Time No Known Drug Allergies Allergy Verified 01/24/24 10:19 Home Medications Medication Instructions Recorded Confirmed Type cyanocobalamin (vitamin B-12) 1,000 mcg IM UD 12/23/18 02/27/24 History 1,000 mcg/mL injection solution acetone (urine) test (Ketostix #50 ea 10/13/22 02/27/24 Rx strips) Omnipod 5 G6 Intro Kit (Gen 5) #1 ea 10/16/22 02/27/24 Rx subcutaneous cartridge with controller (insulin pump cart,auto,BT-cntr) pen needle, diabetic 32 gauge x #450 ea 04/05/23 02/27/24 Rx 5/32" (BD Ultra-Fine Patricia Pen Needle) flash glucose sensor (FreeStyle 09/06/23 02/27/24 History Raghavendra 2 Sensor kit) atorvastatin 20 mg tablet 20 mg PO HS 09/24/23 02/27/24 History tirzepatide 5 mg/0.5 mL 5 mg (0.5 mL) subcut Q7D #6 mL 10/12/23 02/27/24 Rx subcutaneous pen injector (Kamran) lorazepam 0.5 mg tablet 0.5 mg PO .COMPLEX PRN anxiety #2 10/16/23 02/27/24 Rx tabs Novolog U-100 Insulin aspart 100 30 unit (0.3 mL) continuous 02/15/24 02/27/24 Rx unit/mL subcutaneous solution subcutaneous infusion DAILY #10 mL (insulin aspart U-100) blood-glucose sensor (Dexcom G6 #3 ea 02/15/24 02/27/24 Rx Sensor device) blood-glucose transmitter (Dexcom #1 ea 02/15/24 02/27/24 Rx G6 Transmitter device) insulin pump cart,auto,BT,G6/7 #10 ea 02/15/24 02/27/24 Rx (Omnipod 5 G6-G7 Pods (Gen 5) subcutaneous cartridge) amoxicillin 875 mg-potassium 1 tab PO BIDM #3 tabs 03/02/24 Rx clavulanate 125 mg tablet Past Med/Surg History Problem List (Updated 02/29/24 @ 10:12 by Ryan Barajas MD) Abnormal brain MRI Episode of unresponsiveness Septic shock Seizure-like activity Encephalopathy Sepsis DKA (diabetic ketoacidosis) (Acute) Atypical chest pain (Acute) Colitis (Acute) Change in bowel habits Proctitis Proctitis Liver lesion Dyslipidemia Asymptomatic postmenopausal state Vitamin D deficiency KAYLEEN (iron deficiency anemia) Encounter for pre-operative examination Postmenopausal Lymphadenopathy of right cervical region Ear infection PVCs (premature ventricular contractions) wore holter monitor years ago--no meds--follows with Dr. 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 Ann 1 diabetes PVC's (premature ventricular contractions) wore holter monitor years ago--no meds--follows with Dr. Gerardo History of palpitations f/u dr. [place], [place]>yearly checkup Liver lesion dx 09/2023; had MRI as f/u and "no findings, nothing to worry about" Hx of colonic polyp Sinus tachycardia Acute hypotension hx, occurred during visit to ER 09/2023 at [place] Abdominal pain 09/2023, admitted to hospital for impaction resulting in sepsis, reason for upcoming procedure Hx of iron deficiency anemia Migraine History of COVID-19 04/09/21 @ [facility]--achy, cold/chills--no issues now History of hiatal hernia Chronic reflux esophagitis pt unsure about this; but "no issues with this" Uterine enlargement "quite a few years ago discovered" Breast neoplasm hx Surgical History History of wisdom tooth extraction H/O LEEP 02/18, persistent remberto 1/HPV positive, neg path. History of esophagogastroduodenoscopy (EGD) H/O colposcopy with cervical biopsy S/P colonoscopy Family History Mother Coronary heart disease Daughter Diabetes Brother Diabetes Cardiovascular disease Father Stroke Other No family history of adverse response to anesthesia Denies family history of Ovarian cancer Breast cancer Colorectal cancer Social History Smoking Status: Never smoker Second Hand Exposure: Yes (hx as child); Do You Dip or Chew Tobacco: No; Hx Alcohol Use: Yes Alcohol type: wine Hx Substance Use: No Preferred Language: Thai Communication Ability: Effective Visual Impairment: No Limitations Hearing Ability: Normal Fresh Foods Clerk Required: No Beliefs That Will Affect Care: None marital status: Current Living Situation: Spouse Feels Safe at Home: Yes Dental Care, Regularly: Yes Seatbelt Use: always Assistive Devices: None Review of Systems Review of Systems: As per above Physical Exam Physical Exam: Constitutional: well-appearing, no acute distress HEENT: NCAT, no conjunctival injection CV: regular rhythm, no murmur appreciated, extremities well-perfused, no LE edema Resp: CTABL, no wheezes/rales/rhonchi appreciated, no increased work of breathing GI: soft, nondistended, nontender MSK: no gross deformities appreciated Skin: warm, dry, no rash appreciated Neuro: alert, oriented, no focal neurologic deficit appreciated Results & Data Results & Data Vital Signs (Past 12 Hours) Vital Signs Temp Pulse Pulse Resp BP BP Pulse Ox 02/27/24 23:13 96 H 21 106/53 L 100 02/27/24 22:41 36.6 C 105 H 20 88/43 L 99 02/27/24 22:02 87/41 L 02/27/24 22:00 105 H 17 100 02/27/24 21:51 109 H 17 99 02/27/24 21:47 83/50 L 02/27/24 21:47 83/50 L 02/27/24 21:47 113 H 20 83/50 L 100 02/27/24 21:32 102 H 20 84/46 L 100 02/27/24 21:30 84/46 L 02/27/24 21:25 99/54 L 02/27/24 21:25 99/54 L 02/27/24 21:21 102 H 23 100 02/27/24 21:20 85/45 L 02/27/24 21:18 102 H 21 100 02/27/24 21:15 82/45 L 02/27/24 21:15 82/45 L 02/27/24 21:10 85/47 L 02/27/24 21:10 85/47 L 02/27/24 20:56 95 H 23 89/43 L 100 02/27/24 20:55 89/43 L 02/27/24 20:50 82/45 L 02/27/24 20:45 96 H 21 100 02/27/24 20:45 83/45 L 02/27/24 20:40 85/46 L 02/27/24 20:35 89/49 L 02/27/24 20:30 84/47 L 02/27/24 20:26 81/41 L 02/27/24 20:25 93 H 31 H 81/41 L 100 02/27/24 20:15 84/43 L 02/27/24 20:08 96 H 26 H 85/38 L 99 02/27/24 20:00 83/41 L 02/27/24 19:57 93 H 17 83/41 L 100 02/27/24 19:57 91 H 24 84/39 L 100 02/27/24 19:54 92 H 26 H 80/39 L 02/27/24 19:42 93 H 18 99 02/27/24 19:41 94 H 19 99 02/27/24 19:39 95 H 02/27/24 19:39 92 H 18 93/53 L 96 02/27/24 19:23 36.3 C L 96 H 17 80/47 L 98 O2 Del Method 02/27/24 23:13 Room Air 02/27/24 22:41 Room Air 02/27/24 22:02 02/27/24 22:00 02/27/24 21:51 02/27/24 21:47 02/27/24 21:47 02/27/24 21:47 Room Air 02/27/24 21:32 Room Air 02/27/24 21:30 02/27/24 21:25 02/27/24 21:25 02/27/24 21:21 02/27/24 21:20 02/27/24 21:18 02/27/24 21:15 02/27/24 21:15 02/27/24 21:10 02/27/24 21:10 02/27/24 20:56 Room Air 02/27/24 20:55 02/27/24 20:50 02/27/24 20:45 02/27/24 20:45 02/27/24 20:40 02/27/24 20:35 02/27/24 20:30 02/27/24 20:26 02/27/24 20:25 Room Air 02/27/24 20:15 02/27/24 20:08 Room Air 02/27/24 20:00 02/27/24 19:57 02/27/24 19:57 Room Air 02/27/24 19:54 02/27/24 19:42 02/27/24 19:41 Room Air 02/27/24 19:39 02/27/24 19:39 Room Air 02/27/24 19:23 Room Air Supervising Physician Co-Signing Physician Notes Attending addendum: I have physically seen this patient, have supervised the medical residents activities, and agree with the H&P unless as otherwise noted. Assessment and Plan: Sepsis- Follow urine cultures and blood cultures Follow stool studies Status post 3 L normal saline bolus from the ED Continue maintenance NSS at 125 mL/h The patient reports feeling significantly improved after hydration DKA- Anion gap 14 Continue insulin drip per protocol begun in the ED Atypical chest pain Troponin 4.3 EKG without acute findings CTA chest negative Follow clinical examination Resident Activity Tracking Resident Involvement: Resident Care Provided Care Provided: Adult Hospital Medicine
[2024-02-28] MEDS: SODIUM CHLORIDE 0.9% 1,000 ML IV SCH ×4 (00:09→15:55)
[2024-02-28] MEDS ORDERED: ACETAMINOPHEN 325 MG TAB PO PRN (01:22)
[2024-02-28] MEDS ORDERED: PHARMACY GLYCEMIC MGMT CONSULT PRN ×2 (02:00→07:45)
[2024-02-28] MEDS: ACETAMINOPHEN 1,000 MG/100 ML VIAL IV PRN (02:14)
[2024-02-28 02:48] LABS: Calcium 8.5 mg/dl (8.6-10.3)
[2024-02-28 02:53] LABS: BUN Creatinine Ratio 25.6 (10-20); Creatinine Clr Calc Pharmacy 74.7 ml/min
[2024-02-28] MEDS ORDERED: LANTUS PER UNIT CHARGE SC ONE (03:00)
[2024-02-28] MEDS: LANTUS PER UNIT CHARGE SC STA (03:20)
[2024-02-28] MEDS: [UNRECOGNIZED DRUG - REMARK] ONE (03:21)
[2024-02-28] MEDS: SODIUM CHLORIDE 0.9% 500 ML IV ONE (03:55)
[2024-02-28] MEDS ORDERED: [UNRECOGNIZED DRUG - REMARK] ONE (04:00)
[2024-02-28] MEDS: ONDANSETRON INJ 2 MG/ML 2 ML VIAL IV PRN (04:25)
[2024-02-28] MEDS: PIPERACILLIN/TAZOBACTAM 4.5 GM/100 ML BAG IV SCH (05:43)
[2024-02-28 06:01] LABS: Base Excess VBG -10.2 mEq/L; HCO3 VBG 15 mmol/L; Oxygen Saturation VBG 97.7 %; PCO2 VBG 29 mmHg (38-50); PO2 VBG 81 mmHg; pH VBG 7.31 (7.36-7.41)
[2024-02-28 06:12] LABS: Hematocrit (blood only) 31.4 % (37.0-47.0); Hemoglobin 10.9 g/dl (12.0-16.0); Mean Corpuscular Hemoglobin 30.4 pg (25.0-34.0); Mean Corpuscular Hgb Conc 34.7 g/dL (32.0-36.0); Mean Corpuscular Volume 87.5 fL (80.0-100.0); Mean Platelet Volume 11.7 fL (9.4-12.4); Platelet Count 169 K/uL (130-400); RDW Coefficient of Variation 12.5 % (11.5-14.5); RDW Standard Deviation 40.3 fL (36.4-46.3); Red Blood Count 3.59 M/uL (4.20-5.40); White Blood Count 18.21 K/ul (4.8-10.8)
[2024-02-28 06:25] LABS: BUN Creatinine Ratio 24.4 (10-20); Calcium 8.2 mg/dl (8.6-10.3); Creatinine Clr Calc Pharmacy 74.7 ml/min; Magnesium 1.5 mg/dl (1.7-2.4); Potassium 3.9 mmol/L (3.5-5.1)
[2024-02-28] MEDS: OPTIRAY 320 125ml IV ONE (06:55)
--- NOTE | 2024-02-28 07:17 | Communication Note ---
Date of Service: February 28, 2024 Evaluated pt at ~545 with concern for increased lethargy. VBG ordered at that time and morning labs drawn. BPs 100s/60s and BG= 139. Code purple at ~0630. Pt more lethargic. Attending physician also came to bedside. Patient not answering questions, would open eyes to sternal rub but otherwise non-communicative. BG obtained at bedside= 240s. Blood pressure 90s/50s. Heart with RRR, carotid bruits B/L. Morning labs with WBC=18- empirically on Zosyn. ABG ordered. Head CT, CTA Head and Neck ordered. Troponin pending. UA and UDS pending. Attempted to call , no answer.
[2024-02-28 07:18] LABS: Troponin I High Sensitivity 11.8 pg/ml (0-14)
[2024-02-28 07:22] LABS: Appearance Urine Clear (Clear); Bilirubin Urine Negative (Negative); Blood Urine Negative (Negative); Color Urine Yellow; Glucose Urine UA Negative (Negative); Ketones Urine 1+ (Negative); Leukocyte Esterase Urine Negative (Negative); Nitrite Urine Negative (Negative); Protein Urine Negative (Negative); Specific Gravity Urine > 1.045 (1.000-1.030); Urobilinogen Urine Negative (Negative)
--- NOTE | 2024-02-28 07:37 | CT Scan Report ---
EXAM: CT angio neck with con CLINICAL HISTORY: CODE PURPLE LETHARGIC PT MOVED DURING CTA HEAD SCAN, QUICKLY RESCANNED BEST IMAGES POSSIBLE FOR PT CONDITION/ ABILITY TO COOPERATE OPTIRAY 320 120ML EK/AD TECHNIQUE: CT angiography study of the neck vessels with IV contrast was performed and multiple axial sections were obtained with coronal and sagittal reconstructions. 120ml Optiray 320 was administered, CTDI: mGy, DLP: mGy*cm. One of the following dose reduction techniques were utilized for this exam: Automated exposure control, adjustment of the mA and/or kV according to patient size, and use of iterative reconstruction. One of these 3D techniques was utilized: Maximum Intensity Pixel (MIP), 3D Reconstructed Images, Volume Rendered Images, Surface Shaded Rendering. COMPARISON: None. FINDINGS: Carotid Arteries: Common carotid arteries, internal carotid arteries, and external carotid arteries bilaterally are well-opacified. No evidence of significant stenosis, occlusion, or aneurysm. Few eccentric non-stenotic calcified plaques are noted in the cavernous segments of both internal carotid arteries bilaterally (more at the left side), no significant atherosclerotic changes. Vertebral Arteries: Vertebral arteries bilaterally are well-opacified. No evidence of significant stenosis, occlusion, or aneurysm. No significant atherosclerotic changes. Jugular Veins: Normal opacification of the internal and external jugular veins bilaterally. No evidence of thrombosis or compression. Subclavian Arteries: Subclavian arteries bilaterally are well-opacified. No evidence of significant stenosis, occlusion, or aneurysm. Thyroid Gland: Normal size and morphology of the thyroid gland. No masses or nodules. Soft Tissues: Normal appearance of the surrounding soft tissues of the neck. No abnormal masses or lymphadenopathy. Cervical Spine: Cervical spondylotic changes noted. No fractures, lytic or sclerotic lesions. IMPRESSION: 1. Few eccentric non-stenotic calcified plaques are noted in the cavernous segments of both internal carotid arteries bilaterally (more at the left side). 2. No hemodynamically significant stenosis or occlusions. 3. No evidence of significant vascular abnormalities. Electronically signed by Dewayne Terry 02-28-2024 07:37 AM
[2024-02-28 07:39] LABS: iSTAT Arterial Blood Gas HCO3 15 meg/L (19-24); iSTAT Arterial Blood Gas pCO2 29 mmHg (35-46); iSTAT Arterial Blood Gas pH 7.32 (7.35-7.45); iSTAT Arterial Blood Gas pO2 96 mmHg (80-95); iSTAT Carbon Dioxide 16 mmol/L (24-31); iSTAT Hematocrit 31 % (37-47); iSTAT Hemoglobin 10.5 g/dl (12.0-16.0); iSTAT Potassium 3.5 mmol/L (3.3-5.0); iSTAT Sodium 138 mmol/L (135-144)
[2024-02-28] MEDS ORDERED: PENDING 1/2NSS+40mEq KCL IVF SCH (07:45)
[2024-02-28] MEDS ORDERED: STAT IV Infusion **Titration per Protocol STA ×2 (07:45→15:25)
--- NOTE | 2024-02-28 07:52 | CT Scan Report ---
EXAM: CT angio head w con CLINICAL HISTORY: CODE PURPLE LETHARGIC PT MOVED DURING CTA HEAD SCAN, QUICKLY RESCANNED BEST IMAGES POSSIBLE FOR PT CONDITION/ ABILITY TO COOPERATE OPTIRAY 320 120ML EK/AD TECHNIQUE: Axial CT angiography of the head was performed with IV contrast and sagittal and coronal reconstructions. One of these 3D techniques was utilized: Maximum Intensity Pixel (MIP), 3D Reconstructed Images, Volume Rendered Images, Surface Shaded Rendering. One of the following dose reduction techniques were utilized for this exam: Automated exposure control, adjustment of the mA and/or kV according to patient size, and use of iterative reconstruction. COMPARISON: None. FINDINGS: Intracranial Arteries: Few eccentric non-stenotic calcified plaques are noted in the cavernous segments of both internal carotid arteries bilaterally (more at the left side). Otherwise, the intracranial portions of the internal carotid arteries, anterior cerebral arteries, middle cerebral arteries, posterior cerebral arteries, basilar artery, and vertebral arteries are well-opacified. Hypoplastic A1 segment of the left ORESTES. No evidence of aneurysm, stenosis, or occlusion. [place]: The [place] is complete. Normal caliber of the communicating arteries. No vascular malformations or aneurysms. Venous Structures: Normal opacification of the major dural venous sinuses. No evidence of venous sinus thrombosis. Hypoplastic left transverse sinus. IMPRESSION: 1. Few eccentric non-stenotic calcified plaques are noted in the cavernous segments of both internal carotid arteries bilaterally (more at the left side). 2. Otherwise, unremarkable study. No evidence of significant vascular abnormalities. 3. Hypoplastic A1 segment of the left ORESTES. 4. Hypoplastic left transverse sinus. Electronically signed by Dewayne Terry 02-28-2024 07:52 AM
[2024-02-28] MEDS: MAGNESIUM SULFATE / D5W 1 GM/100 ML BAG IV SCH (07:59)
--- NOTE | 2024-02-28 08:00 | CT Scan Report ---
EXAM: CT head/brain wo con CLINICAL HISTORY: CODE PURPLE LETHARGIC PT MOVED DURING CTA HEAD SCAN, QUICKLY RESCANNED BEST IMAGES POSSIBLE FOR PT CONDITION/ ABILITY TO COOPERATE OPTIRAY 320 120ML EK/AD TECHNIQUE: Axial noncontrast CT scan of the brain was performed from the skull base to the high parietal region. One of the following dose reduction techniques was utilized for this exam: Automated exposure control, adjustment of the mA and/or kV according to patient size, use of iterative reconstruction COMPARISON: None. FINDINGS: No intracerebral or extra axial hematoma. Hinojosa-white matter differentiation is maintained. The visualized brain parenchyma shows a normal appearance. No midline shifts or deformity. Normal size and configuration of the cerebral ventricles. Normal CT appearance of the posterior fossa structures namely the cerebellar hemispheres, brainstem, and cerebellar peduncles. The IACs are unremarkable. The cerebello-pontine angles are clear. The osseous structures in the skull base are unremarkable. No definite calvarium fractures. The scanned paranasal sinuses are clear. IMPRESSION: 1. No acute intracranial abnormality. 2. MRI with diffusion imaging is advised to detect any acute/evolving acute ischemic insult if clinically warranted. Electronically signed by Dewayne Terry 02-28-2024 07:59 AM
[2024-02-28] MEDS: THIAMINE HCL 200 MG in SODIUM CHLORIDE 0.9% 50 ML IV ONE (08:17)
[2024-02-28 08:25] LABS: Amphetamines+Metham, Urine Neg (Neg); Barbiturates, Urine Neg (Neg); Benzodiazepine, Urine Neg (Neg); Cocaine, Urine Neg (Neg); Fentanyl, Urine Neg (Neg); MDMA (Ecstacy), Urine Neg (Neg); Marijuana, Urine Neg (Neg); Methadone, Urine Neg (Neg); Opiate, Urine Neg (Neg); Phencyclidine, Urine Neg (Neg)
[2024-02-28] MEDS: INSULIN REGULAR 250 UNITS in SODIUM CHLORIDE 0.9% 247.5 ML IV SCH (08:31)
[2024-02-28] MEDS: POTASSIUM CHLORIDE 40 MEQ in SODIUM CHLORIDE 0.45 % 1,000 ML IV SCH (08:31)
[2024-02-28 08:38] LABS: BUN Creatinine Ratio 23.8 (10-20); Calcium 8.2 mg/dl (8.6-10.3); Creatinine Clr Calc Pharmacy 69.4 ml/min; Magnesium 1.5 mg/dl (1.7-2.4); Phosphorus 4.5 mg/dl (2.5-4.9); Potassium 3.9 mmol/L (3.5-5.1)
[2024-02-28] MEDS: INSULIN ASPART PER UNIT CHARGE SC SCH ×2 (08:42→13:11)
--- NOTE | 2024-02-28 09:24 | Neurology Consultation ---
Date of Consultation February 28, 2024 Assessment & Plan (1) Encephalopathy: (2) Sepsis: (3) Colitis: (4) DKA (diabetic ketoacidosis): Plan 53-year-old female with diabetic ketoacidosis, colitis, sepsis, poorly arousable this morning, briefly opens eyes to sternal rub and clapping, otherwise nonverbal. No focal findings on neurological examination. No posturing, dystonia, or abnormal movements. Probable metabolic encephalopathy. Discussed case with Dr. Desai. MRI and EEG ordered. Patient's signs and symptoms not highly suggestive of acute stroke or seizures, however. Encephalitis unlikely. I will advise further pending completion of MRI and EEG. Continue supportive medical care. Consider checking ammonia, L[place]. History of Present Illness Reason for Consultation: Altered mental status Requesting Physician: Llyod Attending Physician: Ambrocio Desai History of Present Illness The patient is a 53-year-old female who presented to the emergency department last night with a 2 to 3-day history of feeling ill, nausea, emesis, episode of diarrhea, abdominal pain. Had similar symptoms this past August with fecal impaction, stercoral proctitis. A CT of the abdomen pelvis completed last night suggested nonspecific infectious or inflammatory colitis. She has been afebrile. Mildly tachycardic. Mildly hypotensive. She has a modest leukocytosis this morning, hyperglycemic, and has a probable diabetic ketoacidosis. Renal function normal. Sodium and potassium normal. Troponin normal. TSH normal. Urine tox screen normal. Nasopharyngeal upper respiratory PCR is negative. She was poorly arousable this morning, briefly opening eyes to sternal rub, otherwise not communicating. A CT of the head was obtained. I independently reviewed these images. There is no obvious evidence of acute or subacute process. There is no atrophy or hydrocephalus. No evidence of chronic infarct. CTA of the head and neck revealed some incidental calcified plaque within the cavernous carotids bilaterally, more on the left. The patient remains obtunded per my assessment, briefly opening her eyes to clapping and sternal rub, otherwise unresponsive. See examination below. Allergies Allergy/AdvReac Type Severity Reaction Status Date / Time No Known Drug Allergies Allergy Verified 01/24/24 10:19 Home Medications Medication Instructions Recorded Confirmed Type cyanocobalamin (vitamin B-12) 1,000 mcg IM UD 12/23/18 02/27/24 History 1,000 mcg/mL injection solution acetone (urine) test (Ketostix #50 ea 10/13/22 02/27/24 Rx strips) Omnipod 5 G6 Intro Kit (Gen 5) #1 ea 10/16/22 02/27/24 Rx subcutaneous cartridge with controller (insulin pump cart,auto,BT-cntr) pen needle, diabetic 32 gauge x #450 ea 04/05/23 02/27/24 Rx 5/32" (BD Ultra-Fine Patricia Pen Needle) flash glucose sensor (FreeStyle 09/06/23 02/27/24 History Raghavendra 2 Sensor kit) atorvastatin 20 mg tablet 20 mg PO HS 09/24/23 02/27/24 History tirzepatide 5 mg/0.5 mL 5 mg (0.5 mL) subcut Q7D #6 mL 10/12/23 02/27/24 Rx subcutaneous pen injector (Kamran) lorazepam 0.5 mg tablet 0.5 mg PO .COMPLEX PRN anxiety #2 10/16/23 02/27/24 Rx tabs Novolog U-100 Insulin aspart 100 30 unit (0.3 mL) continuous 02/15/24 02/27/24 Rx unit/mL subcutaneous solution subcutaneous infusion DAILY #10 mL (insulin aspart U-100) blood-glucose sensor (Dexcom G6 #3 ea 02/15/24 02/27/24 Rx Sensor device) blood-glucose transmitter (Dexcom #1 ea 02/15/24 02/27/24 Rx G6 Transmitter device) insulin pump cart,auto,BT,G6/7 #10 ea 02/15/24 02/27/24 Rx (Omnipod 5 G6-G7 Pods (Gen 5) subcutaneous cartridge) Patient History Medical History Lymphadenopathy of right cervical region ongoing, has been checked by Type 1 diabetes PVC's (premature ventricular contractions) wore holter monitor years ago--no meds--follows with Dr. Gerardo History of palpitations f/u dr. gerardo, nathaniel>yearly checkup Liver lesion dx 09/2023; had MRI as f/u and "no findings, nothing to worry about" Hx of colonic polyp Sinus tachycardia Acute hypotension hx, occurred during visit to ER 09/2023 at [place] Abdominal pain 09/2023, admitted to hospital for impaction resulting in sepsis, reason for upcoming procedure Hx of iron deficiency anemia Migraine History of COVID-19 04/09/21 @ [facility]--achy, cold/chills--no issues now History of hiatal hernia Chronic reflux esophagitis pt unsure about this; but "no issues with this" Uterine enlargement "quite a few years ago discovered" Breast neoplasm hx Surgical History History of wisdom tooth extraction H/O LEEP 02/18, persistent remberto 1/HPV positive, neg path. History of esophagogastroduodenoscopy (EGD) H/O colposcopy with cervical biopsy S/P colonoscopy Family History Mother Coronary heart disease Daughter Diabetes Brother Diabetes Cardiovascular disease Father Stroke Other No family history of adverse response to anesthesia Denies family history of Ovarian cancer Breast cancer Colorectal cancer Social History Smoking Status: Never smoker Second Hand Exposure: Yes (hx as child); Do You Dip or Chew Tobacco: No; Hx Alcohol Use: Yes Alcohol type: wine Hx Substance Use: No Preferred Language: Croatian Communication Ability: Effective Visual Impairment: No Limitations Hearing Ability: Normal Chairman Emeritus Required: No Beliefs That Will Affect Care: None marital status: Current Living Situation: Spouse Other Information That Helps Us Care for You: No Feels Safe at Home: Yes Safety Concerns: Feels Safe At This Time Dental Care, Regularly: Yes Seatbelt Use: always Assistive Devices: Other Review of Systems Review of Systems: Unobtainable due to reduced consciousness Exam (Neuro) Constitutional: well developed and + altered mental status Eyes: PERRL and EOM intact bilaterally (There is no gaze preference or gaze deviation); no nystagmus Neurologic: Cognitive Function: Recent Change Attention: negative Span Intact Language: Other (Nonverbal at this time) Cranial Nerves: Normal III, IV, (Oculocephalic and pupillary reflexes intact), V (Blink reflex intact) and VII (No facial droop or asymmetry) Motor Tone: Normal Lower Extremities and Normal Upper Extremities Muscle Bulk/Involuntary Movements: No Involuntary Movements; negative Muscle Atrophy Deep Tendon Reflexes: Rt Triceps: 2+, Lt Triceps: 2+, Rt Biceps: 2+, Lt Biceps: 2+, Rt Brachioradialis: 2+, Lt Brachioradialis: 2+, Rt Patellar: 2+, Lt Patellar: 2+, Rt Ankle: 1+ and Lt Ankle: 1+ Special Tests: negative Babinski Present (Patient withdrawals both lower limbs to plantar stimulation) Details: No nuchal rigidity Results & Data Vital Signs (Past 12 Hours) Vital Signs Temp Pulse Pulse Resp BP BP BP 02/28/24 05:49 107/69 02/28/24 04:34 109 H 91/57 L 02/28/24 03:28 36.8 C 91 H 18 88/43 L 02/28/24 01:45 02/28/24 01:45 36.5 C 100 H 20 108/64 02/28/24 01:28 36.5 C 100 H 18 108/62 02/28/24 00:15 96 H 18 103/58 L 02/28/24 00:00 93 H 20 98/54 L 02/27/24 23:35 93 H 02/27/24 23:15 95 H 16 103/55 L 02/27/24 23:13 96 H 21 106/53 L 02/27/24 23:10 95 H 22 106/53 L 02/27/24 23:00 96 H 17 96/52 L 02/27/24 22:41 36.6 C 105 H 20 88/43 L 02/27/24 22:02 87/41 L 02/27/24 22:00 105 H 17 02/27/24 21:51 109 H 17 02/27/24 21:47 83/50 L 02/27/24 21:47 83/50 L 02/27/24 21:47 113 H 20 83/50 L 02/27/24 21:32 102 H 20 84/46 L 02/27/24 21:30 84/46 L 02/27/24 21:25 99/54 L 02/27/24 21:25 99/54 L 02/27/24 21:21 102 H 23 02/27/24 21:20 85/45 L 02/27/24 21:18 102 H 21 02/27/24 21:15 82/45 L 02/27/24 21:15 82/45 L 02/27/24 21:10 85/47 L 02/27/24 21:10 85/47 L 02/27/24 20:56 95 H 23 89/43 L 02/27/24 20:55 89/43 L 02/27/24 20:50 82/45 L 02/27/24 20:45 96 H 21 02/27/24 20:45 83/45 L Pulse Ox O2 Del Method 02/28/24 05:49 02/28/24 04:34 02/28/24 03:28 100 Room Air 02/28/24 01:45 Room Air 02/28/24 01:45 99 Room Air 02/28/24 01:28 99 Room Air 02/28/24 00:15 99 Room Air 02/28/24 00:00 99 Room Air 02/27/24 23:35 02/27/24 23:15 99 Room Air 02/27/24 23:13 100 Room Air 02/27/24 23:10 98 Room Air 02/27/24 23:00 99 Room Air 02/27/24 22:41 99 Room Air 02/27/24 22:02 02/27/24 22:00 100 02/27/24 21:51 99 02/27/24 21:47 02/27/24 21:47 02/27/24 21:47 100 Room Air 02/27/24 21:32 100 Room Air 02/27/24 21:30 02/27/24 21:25 02/27/24 21:25 02/27/24 21:21 100 02/27/24 21:20 02/27/24 21:18 100 02/27/24 21:15 02/27/24 21:15 02/27/24 21:10 02/27/24 21:10 02/27/24 20:56 100 Room Air 02/27/24 20:55 02/27/24 20:50 02/27/24 20:45 100 02/27/24 20:45 Coding Level of Care Code 73057 INT INP/OBS CARE 3/75MIN Diagnoses Encephalopathy G93.40 Sepsis A41.9 Colitis K52.9 DKA (diabetic ketoacidosis) E11.10 Time Spent (min) 80 Comment Total time includes patient contact, chart review, communication w hospitalist, note prep
--- NOTE | 2024-02-28 11:29 | Electroencephalogram ---
EEG Procedure Note Date of Service February 28, 2024 Start / End Times Start Time: 10:25 AM End Time: 10:45 AM Referring Physician Lloyd History Encephalopathy, unresponsive, nonverbal Home Medication List Medication Instructions Recorded Confirmed Type cyanocobalamin (vitamin B-12) 1,000 mcg IM UD 12/23/18 02/27/24 History 1,000 mcg/mL injection solution acetone (urine) test (Ketostix #50 ea 10/13/22 02/27/24 Rx strips) Omnipod 5 G6 Intro Kit (Gen 5) #1 ea 10/16/22 02/27/24 Rx subcutaneous cartridge with controller (insulin pump cart,auto,BT-cntr) pen needle, diabetic 32 gauge x #450 ea 04/05/23 02/27/24 Rx 5/32" (BD Ultra-Fine Patricia Pen Needle) flash glucose sensor (FreeStyle 09/06/23 02/27/24 History Raghavendra 2 Sensor kit) atorvastatin 20 mg tablet 20 mg PO HS 09/24/23 02/27/24 History tirzepatide 5 mg/0.5 mL 5 mg (0.5 mL) subcut Q7D #6 mL 10/12/23 02/27/24 Rx subcutaneous pen injector (Kamran) lorazepam 0.5 mg tablet 0.5 mg PO .COMPLEX PRN anxiety #2 10/16/23 02/27/24 Rx tabs Novolog U-100 Insulin aspart 100 30 unit (0.3 mL) continuous 02/15/24 02/27/24 Rx unit/mL subcutaneous solution subcutaneous infusion DAILY #10 mL (insulin aspart U-100) blood-glucose sensor (Dexcom G6 #3 ea 02/15/24 02/27/24 Rx Sensor device) blood-glucose transmitter (Dexcom #1 ea 02/15/24 02/27/24 Rx G6 Transmitter device) insulin pump cart,auto,BT,G6/7 #10 ea 02/15/24 02/27/24 Rx (Omnipod 5 G6-G7 Pods (Gen 5) subcutaneous cartridge) Inpatient Medication List Piperacillin Sod/Tazobactam Sod (Zosyn) 4.5 gm in 100 mls @ 25 mls/hr IV Q8H DIANA; Protocol Stop: 03/09/24 05:59 Last Infusion: 02/28/24 09:47 Dose: Infused Documented By: Admin: 02/28/24 05:43 Dose: 25 mls/hr Documented By: ELIEL Acetaminophen (Ofirmev) 1,000 mg in 100 mls @ 400 mls/hr IV Q8H PRN PRN Reason: Pain Stop: 03/02/24 02:02 Last Infusion: 02/28/24 02:29 Dose: Infused Documented By: Admin: 02/28/24 02:14 Dose: 400 mls/hr Documented By: ELIEL Magnesium Sulfate/Dextrose (Magnesium Sulfate / D5w) 1 gm in 100 mls @ 50 mls/hr IV Q2H DIANA Stop: 02/28/24 11:59 Last Admin: 02/28/24 10:51 Dose: 50 mls/hr Documented By: Infusion: 02/28/24 09:59 Dose: Infused Documented By: Admin: 02/28/24 07:59 Dose: 50 mls/hr Documented By: MARK Insulin Human Regular 250 (units/ Sodium Chloride) 250 mls @ 1.3 mls/hr IV .Q24H DIANA; Protocol Stop: 03/29/24 07:59 Last Titration: 02/28/24 09:34 Dose: 1.3 units/hr, 1.3 mls/hr Documented By: MARK Co-signed By: RAMBO Admin: 02/28/24 08:31 Dose: 1.1 units/hr, 1.1 mls/hr Documented By: MARK Co-signed By: KORIN Potassium Chloride 40 meq/ (Sodium Chloride) 1,020 mls @ 125 mls/hr IV .Q8H10M DIANA Stop: 03/29/24 07:59 Last Admin: 02/28/24 08:31 Dose: 125 mls/hr Documented By: MARK Ondansetron HCl (Ondansetron Inj 2 Mg/Ml 2 Ml Vial) 4 mg IV Q4H PRN PRN Reason: Nausea Stop: 03/29/24 01:59 Last Admin: 02/28/24 04:25 Dose: 4 mg Documented By: ELIEL Discontinued Medications Sodium Chloride (Nss) 1,000 mls @ 999 mls/hr IV .Q1H1M ONE Stop: 02/27/24 20:36 Last Infusion: 02/27/24 21:32 Dose: Infused Documented By: Admin: 02/27/24 20:23 Dose: 999 mls/hr Documented By: Infusion: 02/27/24 20:23 Dose: Infused Documented By: Admin: 02/27/24 19:42 Dose: 999 mls/hr Documented By: YOVANY Sodium Chloride (Nss) 1,000 mls @ 999 mls/hr IV .Q1H1M ONE Stop: 02/27/24 21:08 Last Infusion: 02/27/24 21:32 Dose: Infused Documented By: Admin: 02/27/24 20:27 Dose: 999 mls/hr Documented By: YOVANY Insulin Human Regular 250 (units/ Sodium Chloride) 250 mls @ 0 mls/hr IV .Q0M DIANA; Protocol Stop: 02/28/24 04:00 Last Titration: 02/28/24 03:05 Dose: Infused Documented By: ELIEL Co-signed By: GLENNA Titration: 02/28/24 03:05 Dose: 0 units/hr, 0 mls/hr Documented By: ELIEL Co-signed By: CTA Titration: 02/28/24 02:31 Dose: 1.1 units/hr, 1.1 mls/hr Documented By: ELIEL Co-signed By: GLENNA Titration: 02/28/24 01:58 Dose: 0 units/hr, 0 mls/hr Documented By: ELIEL Co-signed By: SKS Titration: 02/28/24 00:41 Dose: 1.8 units/hr, 1.8 mls/hr Documented By: LILY Co-signed By: KMF Titration: 02/27/24 23:40 Dose: 2.2 units/hr, 2.2 mls/hr Documented By: LILY Co-signed By: IDD Admin: 02/27/24 22:32 Dose: 1.6 units/hr, 1.6 mls/hr Documented By: YOVANY Co-signed By: DRE Piperacillin Sod/Tazobactam Sod (Zosyn) 4.5 gm in 100 mls @ 200 mls/hr IV NOW ONE; Protocol Stop: 02/27/24 22:55 Last Infusion: 02/27/24 23:52 Dose: Infused Documented By: Admin: 02/27/24 23:08 Dose: 200 mls/hr Documented By: YOVANY Sodium Chloride (Nss) 500 mls @ 999 mls/hr IV .Q31M ONE Stop: 02/27/24 23:04 Last Infusion: 02/28/24 00:08 Dose: Infused Documented By: Admin: 02/27/24 22:47 Dose: 999 mls/hr Documented By: YOVANY Sodium Chloride (Nss) 1,000 mls @ 125 mls/hr IV .Q8H DIANA Stop: 02/28/24 15:44 Last Admin: 02/28/24 08:43 Dose: Not Given Documented By: Infusion: 02/28/24 08:24 Dose: Infused Documented By: Admin: 02/28/24 00:09 Dose: 125 mls/hr Documented By: LILY Sodium Chloride (Nss) 500 mls @ 999 mls/hr IV .Q31M ONE Stop: 02/28/24 04:13 Last Infusion: 02/28/24 04:26 Dose: Infused Documented By: Admin: 02/28/24 03:55 Dose: 999 mls/hr Documented By: GLENNA Thiamine HCl 200 mg/ Sodium (Chloride) 52 mls @ 210 mls/hr IV 0715 ONE Stop: 02/28/24 07:29 Last Infusion: 02/28/24 08:32 Dose: Infused Documented By: Admin: 02/28/24 08:17 Dose: 210 mls/hr Documented By: MARK Sodium Chloride (Nss) 1,000 mls @ 999 mls/hr IV .Q1H1M DIANA Stop: 02/28/24 09:00 Last Infusion: 02/28/24 09:00 Dose: Infused Documented By: Admin: 02/28/24 07:59 Dose: 999 mls/hr Documented By: MARK Insulin Aspart (Insulin Aspart Per Unit Charge) 0 units SC ACHS [facility] Stop: 03/29/24 07:29 Last Admin: 02/28/24 08:42 Dose: Not Given Documented By: MARK Co-signed By: RAMBO Insulin Glargine (Lantus Per Unit Charge) 4 units SC NOW STA Stop: 02/28/24 03:13 Last Admin: 02/28/24 03:20 Dose: 4 units Documented By: ELIEL Co-signed By: MARQUIS Insulin Human Regular (Novolin-R Bolus From Bag) 1.5 units IV ONE ONE Stop: 02/27/24 22:01 Last Admin: 02/27/24 22:38 Dose: 1.5 units Documented By: YOVANY Co-signed By: DRE Ioversol (Optiray 320 125ml) 116 ml IV ONCE ONE Stop: 02/27/24 21:42 Last Admin: 02/27/24 21:42 Dose: 116 ml Documented By: KRYSTLE Ioversol (Optiray 320 125ml) 120 ml IV ONCE ONE Stop: 02/28/24 06:55 Last Admin: 02/28/24 06:55 Dose: 120 ml Documented By: SUNDEEP Meyers (Moderate Stress Level ) 1 each N/A ONE ONE Stop: 02/27/24 21:41 Last Admin: 02/27/24 22:43 Dose: Not Given Documented By: YOVANY Meyers (Insulin Protocol Goal Range ) 1 each N/A ONE ONE Stop: 02/27/24 21:41 Last Admin: 02/27/24 22:44 Dose: Not Given Documented By: YOVANY Meyers (Stat Iv Infusion Titration Per Protocol) 1 each N/A NOW STA Stop: 02/27/24 21:41 Last Admin: 02/27/24 22:44 Dose: Not Given Documented By: YOVANY Meyers (Stop Order: Dc Insulin Drip Now) 1 each N/A ONE ONE Stop: 02/28/24 03:16 Last Admin: 02/28/24 03:21 Dose: 1 each Documented By: ELIEL Ondansetron HCl (Ondansetron Inj 2 Mg/Ml 2 Ml Vial) 4 mg IV NOW STA Stop: 02/27/24 19:38 Last Admin: 02/27/24 19:49 Dose: 4 mg Documented By: YOVANY Ondansetron HCl (Ondansetron Inj 2 Mg/Ml 2 Ml Vial) 4 mg IV NOW STA Stop: 02/27/24 20:40 Last Admin: 02/27/24 21:01 Dose: 4 mg Documented By: YOVANY Description This is a 21 electrode EEG with a single channel dedicated to limited EKG. The electrodes were placed in accordance with the International 10-20 system. The background rhythm consists of continuous low amplitude mixed frequencies up to 15 Hz. There is continuous 6 to 7 Hz left parietal slowing. There is excessive frontal beta activity and muscle artifact which attenuates towards the end of the study. Photic stimulation is unremarkable. Hyperventilation not performed. There is intermittent IV drip artifact. Interpretation Abnormal awake/drowsy EEG indicative of encephalopathy and focal left parietal slowing. No epileptiform abnormalities. Would recommend brain MRI to assess for stroke or structural pathology. [facility] EEG Procedure Codes Indication for Procedure (1) Encephalopathy: (2) Seizure-like activity: Neurology Neurology: 67401 EEG include record awake & drowsy
--- NOTE | 2024-02-28 11:46 | Electrocardiogram Report ---
Test Reason : Blood Pressure : */* mmHG Vent. Rate : 92 BPM Atrial Rate : 92 BPM P-R Int : 130 ms QRS Dur : 86 ms QT Int : 366 ms P-R-T Axes : 74 56 57 degrees QTcB Int : 452 ms Normal sinus rhythm Normal ECG When compared with ECG of 20-Sep-2023 16:06, No significant change was found Confirmed by David Mohamud ([id number]) on 02/28/2024 11:45:57 AM Referred By: REFERRED SELF Confirmed By: David Mohaumd
--- NOTE | 2024-02-28 11:54 | Electrocardiogram Report ---
Test Reason : Blood Pressure : */* mmHG Vent. Rate : 107 BPM Atrial Rate : 107 BPM P-R Int : 126 ms QRS Dur : 86 ms QT Int : 332 ms P-R-T Axes : 81 39 70 degrees QTcB Int : 443 ms Sinus tachycardia Otherwise normal ECG When compared with ECG of 27-Feb-2024 19:30, (unconfirmed) No significant change was found Confirmed by David Mohamud ([id number]) on 02/28/2024 11:54:01 AM Referred By: REFERRED SELF Confirmed By: David Mohamud
[2024-02-28 12:18] LABS: BUN Creatinine Ratio 22.7 (10-20); Creatinine Clr Calc Pharmacy 66.3 ml/min; Magnesium 1.8 mg/dl (1.7-2.4); Potassium 3.9 mmol/L (3.5-5.1)
[2024-02-28] MEDS: GADOBUTROL 65ML VIAL IV ONE (14:40)
--- NOTE | 2024-02-28 14:58 | Pharmacy Report ---
Pharmacy Glycemic Short Note 2 - Date of Service February 28, 2024 - Glycemic Short BSG Results (Last 24 hours): 02/27/24 02/27/24 02/27/24 19:35 19:38 21:59 Glucose 270 H POC Glucose 261 H POC Glucose (other) 264 H 02/27/24 02/28/24 02/28/24 23:38 00:41 01:52 Glucose POC Glucose 275 H 212 H 142 H POC Glucose (other) 02/28/24 02/28/24 02/28/24 02:08 03:00 04:39 Glucose 152 H POC Glucose 123 H 139 H POC Glucose (other) 02/28/24 02/28/24 02/28/24 05:45 06:35 08:01 Glucose 214 H 281 H POC Glucose 249 H POC Glucose (other) 02/28/24 02/28/24 02/28/24 09:32 10:30 11:29 Glucose POC Glucose 272 H 260 H 254 H POC Glucose (other) 02/28/24 02/28/24 02/28/24 11:48 12:38 13:32 Glucose 266 H POC Glucose 214 H 213 H POC Glucose (other) OUTPATIENT ANTIDIABETIC REGIMEN: * NovoLog omnipod - TDD = 12units/day * CF 73 * CR 18 * Mounjaro 5mg SC weekly ASSESSMENT: * 53 yo F admitted with sepsis, encephalopathy, seizure like activity, possible DKA, started on insulin drip last night, then was transition to SC insulin this morning, then patient deteriorated and moved to ICU, DKA protocol began at that time. Insulin drip running at 1.3units/hr, IV fluids = 1/2NS + 40K @ 125cc/hr, no dextrose incorporated yet, as BG remains ~213mg/dl. * AG 16 -> 8, CO2 15 -> 18 * NPO for neuro consult, pt not arousable today, brain MRI & EEG ordered. * Although anion gap closed, patient still not at goal blood sugar, will tighten goal range slightly and continue insulin drip at this time. PLAN FOR INPATIENT GLYCEMIC CONTROL: * Hold outpatient diabetes medications * Basal insulin * Lantus 4 units SQ given this AM when transitioning off of insulin drip the first time. * IV insulin infusion per DKA protocol, began at 1.1units/hr, now running at 1.3units/hr * goal 140-180mg/dl
--- NOTE | 2024-02-28 15:47 | Magnetic Resonance Report ---
EXAM: MR brain seizure wo/w con CLINICAL HISTORY: 5.8mL Gadavist given existing IV RT AC by IVORY at 14:36pm, uneventful injection, no complaints from PT, PT was a code purple this morning, was completely unresponsive, no history of seizures but ordering doctor wanted seizure protocol incase PT was post-ictal from a seizure this morning that no one witnessed, came in to hospital last night with weakness X 2-3 days, diabetic ketoacidosis, lower blood pressure, PT was monitored for scan, PT claustrophobic, ran some propeller scans to help with motion, had an CT scan and EEG this morning after the code purple episode, PT has insulin pump and Dexcom, both were removed before MRI scan sent to [facility] TECHNIQUE: MRI of the brain was performed with and without intravenous contrast administration ( 5.8mL Gadavist ). Sequences obtained include pre-contrast and post-contrast T1-weighted, T2-weighted, FLAIR (Fluid-Attenuated Inversion Recovery), DWI (Diffusion-Weighted Imaging), and ADC (Apparent Diffusion Coefficient) sequences. COMPARISON: No previous studies are available for comparison. FINDINGS: Brain Parenchyma: There is a focus of subcortical abnormal bright T2/FLAIR signal intensity is seen at the right frontal lobe (T2 axial 15/24, FLAIR cor 13/). No enhancement or diffusion restriction. No evidence of acute infarction or hemorrhage. Hinojosa-white matter differentiation is preserved. No abnormal signal-intensity lesions were identified. Post-Contrast Findings: No abnormal enhancement of the brain parenchyma or meninges. Ventricles and Sulci: The ventricular system is within normal limits without evidence of hydrocephalus. Sulci and cisternal spaces are age-appropriate. Brainstem and Cerebellum: Normal appearance of the brainstem and cerebellum without focal lesions or abnormal enhancement. Vessels: Intracranial vessels appear normal without evidence of vascular malformations or aneurysms. Skull and Calvarium: Right maxillary sinus anterior wall cystocele measuring 11 x 8 mm. No evidence of skull vault lesions or abnormal marrow signals within the calvarium. IMPRESSION: 1. Right frontal subcortical area of altered signal intensity could be post ictal changes, demyelining plaque or due to previous ischemic insult. Follow-up is advised. 2. No evidence of acute infarction or abnormal contrast enhancement. Electronically signed by Geneva Cosme 02-28-2024 3:46 PM
[2024-02-28] MEDS: NOREPINEPHRINE/D5W 4 MG/250 ML PLCT IV SCH (15:54)
[2024-02-28] MEDS: ENOXAPARIN INJ 40 MG/0.4 ML SYR SQ SCH (15:55)
--- NOTE | 2024-02-28 16:05 | Hospitalist Progress Note ---
Date of Service February 28, 2024 Assessment & Plan (1) Sepsis: Plan: - SIRS+ -> tachycardic, tachypneic; Etiology- possible colitis - CT A&P with Colonic mucosal thickening consistent with nonspecific infectious or inflammatory colitis - Ordered 3 additional liters to the 3 liters patient obtained in the ED - IVF as per DKA protocol - colonoscopy 01/2024 without abnormal findings - given her profound hypotension on presentation continue with Zosyn; can likely deescalate tomorrow pending stability - Zofran 4mg q4h prn for nausea - as blood pressure has been labile, will transfer to the ICU for vasopressor support. (2) DKA (diabetic ketoacidosis): Plan: - questionable DKA on admission- BG elevated to 275, with anion gap= 14 - Anion gap has now closed -will transition to long acting insulin (3) Encephalopathy: Plan: Likely metabolic encephalopathy from above. ordered EEG and MRI seizure protocol. Plan (3) Atypical chest pain: Plan: - trop= 4.3 - EKG with NSR without acute ischemic changes - CTA chest without acute pathology - pain has resolved, similar pain with episode 09/2023 Plan Chronic Stable: HLD: continue statin Diet: DM1 as tolerated Code: Full VTE Prophylaxis: Lovenox Dispo: PCU Admission and Anticipated Discharge Date Admission Date: February 27, 2024 Subjective Patient had a code purple at 6:40 am. When I saw patient around 7 am, patient was still lethargic. On later visits, patient was more alert. States she came in with abdominal pain. Review of Systems Review of Systems: All systems reviewed & are unremarkable except as noted in HPI & below Physical Exam Physical Exam: Constitutional: well-appearing, no acute distress HEENT: NCAT, no conjunctival injection CV: regular rhythm Resp: CTABL GI: soft Skin: warm, dry, no rash appreciated Neuro: alert, oriented Results & Data Results & Data Vital Signs (Past 12 Hours) Vital Signs Temp Pulse Pulse Resp BP BP BP 02/28/24 15:06 111 H 19 02/28/24 15:02 87/37 L 02/28/24 15:00 36.6 C 02/28/24 13:45 92/42 L 02/28/24 13:39 37.7 C H 96 H 16 02/28/24 13:22 93/48 L 02/28/24 13:22 93/48 L 02/28/24 13:11 86/45 L 02/28/24 13:03 37.7 C H 97 H 18 02/28/24 13:00 86/43 L 02/28/24 13:00 86/43 L 02/28/24 13:00 86/43 L 02/28/24 13:00 37.7 C H 93 H 17 02/28/24 12:21 37.7 C H 103 H 14 02/28/24 11:30 104/46 L 02/28/24 11:06 37.3 C 107 H 20 02/28/24 11:00 99/52 L 02/28/24 10:00 37.1 C 94 H 14 95/54 L 02/28/24 10:00 95/54 L 02/28/24 10:00 36.8 C 97 H 17 02/28/24 09:15 117/59 L 02/28/24 09:09 36.3 C L 107 H 17 02/28/24 08:21 36.4 C L 100 H 17 02/28/24 08:15 92/52 L 02/28/24 08:06 93 H 02/28/24 07:45 87/44 L 02/28/24 07:17 86/44 L 02/28/24 07:15 36.5 C 102 H 19 02/28/24 05:49 107/69 02/28/24 04:34 109 H 91/57 L Pulse Ox 02/28/24 15:06 99 02/28/24 15:02 02/28/24 15:00 02/28/24 13:45 02/28/24 13:39 100 02/28/24 13:22 02/28/24 13:22 02/28/24 13:11 02/28/24 13:03 100 02/28/24 13:00 02/28/24 13:00 02/28/24 13:00 02/28/24 13:00 100 02/28/24 12:21 100 02/28/24 11:30 02/28/24 11:06 100 02/28/24 11:00 02/28/24 10:00 100 02/28/24 10:00 02/28/24 10:00 100 02/28/24 09:15 02/28/24 09:09 100 02/28/24 08:21 100 02/28/24 08:15 02/28/24 08:06 02/28/24 07:45 02/28/24 07:17 02/28/24 07:15 100 02/28/24 05:49 02/28/24 04:34 PG Care Time/CCT Total # of Minutes Spent Total Time Spent with Patient: Total time spent is greater than 50% in coordination of care (as documented) at patient's floor/unit and/or counseling patient: Critical Care Time: Yes Total Critical Care Time: 35 This is a life threatening situation as blood pressure has shown a MAP below 65. Time spent in reviewing chart, decision making, ordering pressor support. Coding Level of Care Code 43755 SUB INP/OBS CARE 3/50MIN (25 - SIGNIFICANT, SEPARATELY IDENTIFIABLE ) Diagnoses Sepsis A41.9 DKA (diabetic ketoacidosis) E11.10 Encephalopathy G93.40 Additional Codes Critical Care Time - Critical Care Time: Yes ([id number]) Time Spent (min) 60
[2024-02-28 16:06] LABS: BUN Creatinine Ratio 22.4 (10-20); Calcium 8.2 mg/dl (8.6-10.3); Creatinine Clr Calc Pharmacy 68.6 ml/min; Magnesium 2.1 mg/dl (1.7-2.4); Phosphorus 2.6 mg/dl (2.5-4.9); Potassium 4.2 mmol/L (3.5-5.1)
--- NOTE | 2024-02-28 18:13 | Gastrointestinal Consultation ---
Date of Consultation February 28, 2024 Assessment & Plan (1) Colitis: I strongly doubt that the patient has any colitis and the CT findings may represent an under distended colon the patient has not had any bowel movements today she is having her normal bowel movements that she normally has she is not having any diarrhea or hematochezia she had a colonoscopy in December of this year so less than 2 months ago it was essentially normal in the absence of diarrhea and a normal colonoscopy less than 8 weeks ago I am strongly suspicious that she has any colitis or any active GI complaints at the current time I would 1. Advance diet to GI soft 2. PPI daily 3. If patient has any bowel movements we will check stool studies for enteric pathogens and C. difficile Thank you for allowing me to take part in the care of your patient we will continue to follow her with you History of Present Illness Reason for Consultation: Colitis Attending Physician: Ambrocio Desai History of Present Illness Patient is a very pleasant 53-year-old female who was admitted after she had an episode of chest pain and while she was being worked up in the ER she also had a CT of her abdomen which revealed some nonspecific colitis of note she states that in the earlier part of this year she had a similar admission also currently from the GI tract she denies any dysphagia has some reflux intermittently has 1 episode of nausea in the last 1 month no abdominal pain has had no bowel movements today yesterday she stated she had 1 or 2 bowel movements and prior to that she is also been having 1 maybe 2 bowel movements she also uses Metamucil she has not noted that there has been any change in the frequency or consistency of the bowel bowel movements over the last few days they have been solid but most importantly she has not had any bowel movements today no hematochezia or melena at the current time she denies any specific GI complaints per se Allergies Allergy/AdvReac Type Severity Reaction Status Date / Time No Known Drug Allergies Allergy Verified 01/24/24 10:19 Home Medications Medication Instructions Recorded Confirmed Type cyanocobalamin (vitamin B-12) 1,000 mcg IM UD 12/23/18 02/27/24 History 1,000 mcg/mL injection solution acetone (urine) test (Ketostix #50 ea 10/13/22 02/27/24 Rx strips) Omnipod 5 G6 Intro Kit (Gen 5) #1 ea 10/16/22 02/27/24 Rx subcutaneous cartridge with controller (insulin pump cart,auto,BT-cntr) pen needle, diabetic 32 gauge x #450 ea 04/05/23 02/27/24 Rx 5/32" (BD Ultra-Fine Patricia Pen Needle) flash glucose sensor (FreeStyle 09/06/23 02/27/24 History Raghavendra 2 Sensor kit) atorvastatin 20 mg tablet 20 mg PO HS 09/24/23 02/27/24 History tirzepatide 5 mg/0.5 mL 5 mg (0.5 mL) subcut Q7D #6 mL 10/12/23 02/27/24 Rx subcutaneous pen injector (Kamran) lorazepam 0.5 mg tablet 0.5 mg PO .COMPLEX PRN anxiety #2 10/16/23 02/27/24 Rx tabs Novolog U-100 Insulin aspart 100 30 unit (0.3 mL) continuous 02/15/24 02/27/24 Rx unit/mL subcutaneous solution subcutaneous infusion DAILY #10 mL (insulin aspart U-100) blood-glucose sensor (Dexcom G6 #3 ea 02/15/24 02/27/24 Rx Sensor device) blood-glucose transmitter (Dexcom #1 ea 02/15/24 02/27/24 Rx G6 Transmitter device) insulin pump cart,auto,BT,G6/7 #10 ea 02/15/24 02/27/24 Rx (Omnipod 5 G6-G7 Pods (Gen 5) subcutaneous cartridge) Patient History Medical History Lymphadenopathy of right cervical region ongoing, has been checked by Type 1 diabetes PVC's (premature ventricular contractions) wore holter monitor years ago--no meds--follows with Dr. Gerardo History of palpitations f/u dr. gearrdo, ri>yearly checkup Liver lesion dx 09/2023; had MRI as f/u and "no findings, nothing to worry about" Hx of colonic polyp Sinus tachycardia Acute hypotension hx, occurred during visit to ER 09/2023 at [facility] Abdominal pain 09/2023, admitted to hospital for impaction resulting in sepsis, reason for upcoming procedure Hx of iron deficiency anemia Migraine History of COVID-19 04/09/21 @ [facility]--achy, cold/chills--no issues now History of hiatal hernia Chronic reflux esophagitis pt unsure about this; but "no issues with this" Uterine enlargement "quite a few years ago discovered" Breast neoplasm hx Surgical History History of wisdom tooth extraction H/O LEEP 02/18, persistent remberto 1/HPV positive, neg path. History of esophagogastroduodenoscopy (EGD) H/O colposcopy with cervical biopsy S/P colonoscopy Family History Mother Coronary heart disease Daughter Diabetes Brother Diabetes Cardiovascular disease Father Stroke Other No family history of adverse response to anesthesia Denies family history of Ovarian cancer Breast cancer Colorectal cancer Social History Smoking Status: Never smoker Second Hand Exposure: Yes (hx as child); Do You Dip or Chew Tobacco: No; Hx Alcohol Use: Yes Alcohol type: wine Hx Substance Use: No Preferred Language: Sinhala Communication Ability: Effective Visual Impairment: No Limitations Hearing Ability: Normal Assembly Manager Required: No Beliefs That Will Affect Care: None marital status: Current Living Situation: Spouse Other Information That Helps Us Care for You: No Feels Safe at Home: Yes Safety Concerns: Feels Safe At This Time Dental Care, Regularly: Yes Seatbelt Use: always Assistive Devices: Other Review of Systems Review of Systems: A 10 point review of systems was done Physical Exam Physical Exam: Appears comfortable in no acute distress ENMT: Normocephalic/atraumatic Neck: Supple Respiratory: Clear anteriorly Chest (Breasts): Additional Comments: S1 and S2 Gastrointestinal (Abdomen): Soft no tenderness or masses appreciated Results & Data Vital Signs (Past 12 Hours) Vital Signs Temp Pulse Resp BP Pulse Ox 02/28/24 15:06 111 H 19 99 02/28/24 15:02 87/37 L 02/28/24 15:00 36.6 C 02/28/24 13:45 92/42 L 02/28/24 13:39 37.7 C H 96 H 16 100 02/28/24 13:22 93/48 L 02/28/24 13:22 93/48 L 02/28/24 13:11 86/45 L 02/28/24 13:03 37.7 C H 97 H 18 100 02/28/24 13:00 86/43 L 02/28/24 13:00 86/43 L 02/28/24 13:00 86/43 L 02/28/24 13:00 37.7 C H 93 H 17 100 02/28/24 12:21 37.7 C H 103 H 14 100 02/28/24 11:30 104/46 L 02/28/24 11:06 37.3 C 107 H 20 100 02/28/24 11:00 99/52 L 02/28/24 10:00 37.1 C 94 H 14 95/54 L 100 02/28/24 10:00 95/54 L 02/28/24 10:00 36.8 C 97 H 17 100 02/28/24 09:15 117/59 L 02/28/24 09:09 36.3 C L 107 H 17 100 02/28/24 08:21 36.4 C L 100 H 17 100 02/28/24 08:15 92/52 L 02/28/24 08:06 93 H 02/28/24 07:45 87/44 L 02/28/24 07:17 86/44 L 02/28/24 07:15 36.5 C 102 H 19 100 Laboratory Results Reviewed Diagnostic Findings CT abdomen showed some nonspecific colitis PG Care Time/CCT Total # of Minutes Spent Total Time Spent with Patient: Total time spent is greater than 50% in coordination of care (as documented) at patient's floor/unit and/or counseling patient: Coding Level of Care Code 83275 IN/OBS CONSULT LVL 3,45M Diagnoses Colitis K52.9
[2024-02-28] MEDS: PANTOprazole 40 MG TAB PO SCH (18:49)
[2024-02-28] MEDS: COUGH DROP (SUGAR FREE) LOZ 24 LOZ/1 BOX BUCCAL STA (19:26)
[2024-02-28] MEDS ORDERED: Nursing to Pharmacy Communication SCH (20:00)
[2024-02-28] MEDS: ATORVASTATIN 20 MG TAB PO SCH (20:11)
--- NOTE | 2024-02-28 20:31 | Critical Care Consultation ---
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 Likely secondary to underlying DKA and sepsis versus hypotension. CT head, CTA head and neck, and MRI negative for acute intracranial process. Will monitor for now Cardiac - Shocksuspect this most likely due to underlying sepsis. See ID for treatment of infection. Currently requiring low-dose vasopressor support with Levophed drip - Previous TTE with normal EF, no significant valvular disease. Will repeat study this a.m. - EKG without ST elevation, no chest pain - Random cortisol appropriately elevated greater than 60. Patient not previously on steroids. No indication for stress dose steroids at this time - CTA negative for PE - Continue IV fluid resuscitation to maintain intravascular Euvolemia. Currently +8 L since admission - Continue vasopressor support with Levophed drip. Maintain MAP greater than 65, titrate as indicated HLDcontinue statin Respiratory - No history of pulmonary disease. Currently maintaining oxygen saturations on room air without labored breathing. Continuous monitoring on pulse ox GI - Colitis Patient initially presented with abdominal discomfort and CT abdomen pelvis concerning for colitis. Patient was evaluated by GI earlier this afternoon, who felt that colitis was unlikely - She underwent colonoscopy in December which was unremarkable - Will advance diet when appropriate -Continue PPI RENAL/LYTES - Creatinine within normal limits. Monitor routine BMPs and replete electrolytes as indicated - FoleyStrict I's and O's ENDO - DKApatient continues to have mild DKA with bicarb of 17, anion gap is closed. Remains on insulin drip with D5 half NS per DKA protocol - Considering severity of underlying sepsis, will continue with insulin drip at this time. If remains stable can likely transition to long acting subcu insulin, Sliding scale HEME - H&H stable, monitor routine CBC ID - Sepsislikely GI source considering CT abdomen results Favoring colitis. No other identifiable source at this time - Leukocytosis with WBC 18, Pro-Jose Angel elevated at 9 consistent with sepsis - Chest x-ray and CTA chest without evidence of pulmonary infiltrates. Urinalysis unremarkable. Bio fire negative - Blood cultures pending - Continue Zosyn for now LINES/IV ACCESS - Peripheral IV, left upper arm midline. Consider insertion of central venous catheter if requires progressively higher doses of vasopressor support DVT PROPHYLAXIS - SCDAmelia anguiano I have personally spent 58 minutes of critical care time in the direct management of this patient. This is a life/limb threatening event. This includes time spent evaluating patient, direct bedside care, chart review, placing orders, interpretation of diagnostic studies, discussion with consultants, patient, and family members, as well as other required patient management activities. This time is exclusive of all separately billable procedures, and teaching time and separate from and in addition to any other critical care service time. Thank you for allowing us to participate in the care of this patient. Please refer to my attending physician's documentation for any further recommendations. (2) Encephalopathy: (3) DKA (diabetic ketoacidosis): (4) Colitis: (5) Type 1 diabetes: Supervising Physician Co-Signing Physician Notes Patient seen and examined. EMR reviewed. Discussed with critical care JOHN and agree with assessment plan as noted. Please refer to my progress note from 02/29/2024 for additional details. History of Present Illness Attending Physician: Ambrocio Desai History of Present Illness Patient is a 53-year-old female with past medical history of DM type I, HLD, and recent admission for DKA and Stercoral proctitis. Patient underwent colonoscopy and 01/01 which was unremarkable. She presented to the emergency department yesterday evening With complaints of 2 to 3 days of generalized weakness, and 1 day of nausea and vomiting with a large loose stool and lower abdominal discomfort. Patient was found to be in DKA, and was placed on insulin drip per DKA protocol. Patient also found to have of CT abdomen and pelvis consistent with colitis. Patient had code purple early this morning around 6:40 AM where she was found to be lethargic. Head CT, head CTA, neck CTA, MRI all negative for acute intracranial process. Later patient became hypotensive and symptomatic again, she was transferred to the ICU this evening for hypotension requiring vasopressor support On arrival to the ICU the patient is alert and oriented and feels the neurological symptoms have improved following administration of Levophed and increased blood pressure. At this time, she currently denies headache, dizziness, syncopal episode, changes in vision, numbness or tingling or weakness, cough or congestion, sore throat, shortness of breath, chest pain or palpitations, abdominal pain, vomiting, diarrhea, swelling hands or feet, wounds or rashes. She does report episode of nausea earlier tonight but did not vomit. She states that her last bowel movement was yesterday. Patient to remain in ICU for further management at this time. Allergies Allergy/AdvReac Type Severity Reaction Status Date / Time No Known Drug Allergies Allergy Verified 01/24/24 10:19 Home Medications Medication Instructions Recorded Confirmed Type cyanocobalamin (vitamin B-12) 1,000 mcg IM UD 12/23/18 02/27/24 History 1,000 mcg/mL injection solution acetone (urine) test (Ketostix #50 ea 10/13/22 02/27/24 Rx strips) Omnipod 5 G6 Intro Kit (Gen 5) #1 ea 10/16/22 02/27/24 Rx subcutaneous cartridge with controller (insulin pump cart,auto,BT-cntr) pen needle, diabetic 32 gauge x #450 ea 04/05/23 02/27/24 Rx 5/32" (BD Ultra-Fine Patricia Pen Needle) flash glucose sensor (FreeStyle 09/06/23 02/27/24 History Raghavendra 2 Sensor kit) atorvastatin 20 mg tablet 20 mg PO HS 09/24/23 02/27/24 History tirzepatide 5 mg/0.5 mL 5 mg (0.5 mL) subcut Q7D #6 mL 10/12/23 02/27/24 Rx subcutaneous pen injector (Kamran) lorazepam 0.5 mg tablet 0.5 mg PO .COMPLEX PRN anxiety #2 10/16/23 02/27/24 Rx tabs Novolog U-100 Insulin aspart 100 30 unit (0.3 mL) continuous 02/15/24 02/27/24 Rx unit/mL subcutaneous solution subcutaneous infusion DAILY #10 mL (insulin aspart U-100) blood-glucose sensor (Dexcom G6 #3 ea 02/15/24 02/27/24 Rx Sensor device) blood-glucose transmitter (Dexcom #1 ea 02/15/24 02/27/24 Rx G6 Transmitter device) insulin pump cart,auto,BT,G6/7 #10 ea 02/15/24 02/27/24 Rx (Omnipod 5 G6-G7 Pods (Gen 5) subcutaneous cartridge) Patient History Medical History Lymphadenopathy of right cervical region ongoing, has been checked by Type 1 diabetes PVC's (premature ventricular contractions) wore holter monitor years ago--no meds--follows with Dr. Gerardo History of palpitations f/u dr. gerardo, [facility]>yearly checkup Liver lesion dx 09/2023; had MRI as f/u and "no findings, nothing to worry about" Hx of colonic polyp Sinus tachycardia Acute hypotension hx, occurred during visit to ER 09/2023 at [facility] Abdominal pain 09/2023, admitted to hospital for impaction resulting in sepsis, reason for upcoming procedure Hx of iron deficiency anemia Migraine History of COVID-19 04/09/21 @ [facility]--achy, cold/chills--no issues now History of hiatal hernia Chronic reflux esophagitis pt unsure about this; but "no issues with this" Uterine enlargement "quite a few years ago discovered" Breast neoplasm hx Surgical History History of wisdom tooth extraction H/O LEEP 02/18, persistent remberto 1/HPV positive, neg path. History of esophagogastroduodenoscopy (EGD) H/O colposcopy with cervical biopsy S/P colonoscopy Family History Mother Coronary heart disease Daughter Diabetes Brother Diabetes Cardiovascular disease Father Stroke Other No family history of adverse response to anesthesia Denies family history of Ovarian cancer Breast cancer Colorectal cancer Social History Smoking Status: Never smoker Second Hand Exposure: Yes (hx as child); Do You Dip or Chew Tobacco: No; Hx Alcohol Use: Yes Alcohol type: wine Hx Substance Use: No Preferred Language: Turkish Communication Ability: Effective Visual Impairment: No Limitations Hearing Ability: Normal Sales Research Analyst Required: No Beliefs That Will Affect Care: None marital status: Current Living Situation: Spouse Other Information That Helps Us Care for You: No Feels Safe at Home: Yes Safety Concerns: Feels Safe At This Time Dental Care, Regularly: Yes Seatbelt Use: always Assistive Devices: Other Review of Systems Review of Systems: All systems reviewed & are unremarkable except as noted in HPI & below Physical Exam Constitutional: cooperative and comfortable Eyes: PERRL, conjunctivae normal, anicteric sclerae ENMT: external ear and nose normal, oropharynx normal Neck: trachea midline, no thyromegaly Respiratory: normal respiratory effort, lungs clear to auscultation Cardiovascular: RRR, no murmur, no edema Gastrointestinal (Abdomen): normal bowel sounds, soft, nontender, no hepatosplenomegaly Musculoskeletal: no cyanosis or clubbing, extremities motor strength 5/5 Skin: no rashes, warm and dry Neurologic: PERRL, EOMI, accommodation nl, no face palsy, no dysarthria Psychiatric: A+Ox3, euthymic affect Results & Data Results & Data Vital Signs (Past 12 Hours) Vital Signs Temp Pulse Resp BP Pulse Ox 02/28/24 18:03 103 H 15 100 02/28/24 18:00 96/47 L 02/28/24 17:06 101 H 16 100 02/28/24 17:00 101/53 L 02/28/24 16:09 93 H 18 100 02/28/24 16:04 99/59 L 02/28/24 15:06 111 H 19 99 02/28/24 15:02 87/37 L 02/28/24 15:00 36.6 C 02/28/24 13:45 92/42 L 02/28/24 13:39 37.7 C H 96 H 16 100 02/28/24 13:22 93/48 L 02/28/24 13:22 93/48 L 02/28/24 13:11 86/45 L 02/28/24 13:03 37.7 C H 97 H 18 100 02/28/24 13:00 86/43 L 02/28/24 13:00 86/43 L 02/28/24 13:00 86/43 L 02/28/24 13:00 37.7 C H 93 H 17 100 02/28/24 12:21 37.7 C H 103 H 14 100 02/28/24 11:30 104/46 L 02/28/24 11:06 37.3 C 107 H 20 100 02/28/24 11:00 99/52 L 02/28/24 10:00 37.1 C 94 H 14 95/54 L 100 02/28/24 10:00 95/54 L 02/28/24 10:00 36.8 C 97 H 17 100 02/28/24 09:15 117/59 L 02/28/24 09:09 36.3 C L 107 H 17 100 Coding Level of Care Code 33584 CRITICAL CARE 1ST 30-74M Diagnoses Septic shock A41.9; R65.21 Encephalopathy G93.40 DKA (diabetic ketoacidosis) E11.10 Colitis K52.9 Type 1 diabetes E10.9
[2024-02-28] MEDS: PENDING D5 1/2NS+40mEq KCL IVF SCH (20:38)
[2024-02-28] MEDS: POTASSIUM CHLORIDE 40 MEQ in D5W AND 1/2NSS 1,000 ML IV SCH (20:39)
[2024-02-28 20:41] LABS: Basophils # (auto) 0.03 K/uL (0.00-0.20); Basophils % (auto) 0.2 %; Hematocrit (blood only) 29.2 % (37.0-47.0); Hemoglobin 10.2 g/dl (12.0-16.0); Immature Granulocytes # (auto) 0.11 K/uL (0.01-0.20); Immature Granulocytes % (auto) 0.7 %; Lymphocytes # (auto) 0.91 K/uL (1.20-3.40); Lymphocytes % (auto) 5.5 %; Mean Corpuscular Hemoglobin 30.4 pg (25.0-34.0); Mean Corpuscular Hgb Conc 34.9 g/dL (32.0-36.0); Mean Corpuscular Volume 87.2 fL (80.0-100.0); Mean Platelet Volume 11.1 fL (9.4-12.4); Monocytes # (auto) 0.93 K/uL (0.11-0.59); Monocytes % (auto) 5.7 %; Neutrophils # (auto) 14.42 K/uL (1.40-6.50); Neutrophils % (auto) 87.9 %; Platelet Count 161 K/uL (130-400); RDW Coefficient of Variation 13.1 % (11.5-14.5); RDW Standard Deviation 41.6 fL (36.4-46.3); Red Blood Count 3.35 M/uL (4.20-5.40)
[2024-02-28 20:48] LABS: Albumin Globulin Ratio 1.8 (0.9-2); Albumin Level 3.4 gm/dl (3.4-5.0); BUN Creatinine Ratio 18.9 (10-20); Bilirubin,Total 0.6 mg/dl (0.2-1.0); Calcium 7.7 mg/dl (8.6-10.3); Creatinine Clr Calc Pharmacy 61.4 ml/min; Globulin 1.9 gm/dl (2.5-4.0); Phosphorus 2.3 mg/dl (2.5-4.9); Potassium 4.3 mmol/L (3.5-5.1); Total Protein 5.3 gm/dl (6.0-8.3)
[2024-02-29 00:36] LABS: BUN Creatinine Ratio 17.6 (10-20); Calcium 7.5 mg/dl (8.6-10.3); Creatinine Clr Calc Pharmacy 57.2 ml/min; Phosphorus 2.3 mg/dl (2.5-4.9); Potassium 4.3 mmol/L (3.5-5.1)
[2024-02-29] MEDS: PLASMA-LYTE A 500 ML IV ONE (01:00)
[2024-02-29] MEDS: PLASMA-LYTE A 1,000 ML IV ONE (02:35)
[2024-02-29 05:32] LABS: Basophils # (auto) 0.03 K/uL (0.00-0.20); Basophils % (auto) 0.2 %; Eosinophils # (auto) 0.01 K/uL (0.00-0.50); Eosinophils % (auto) 0.1 %; Hematocrit (blood only) 26.6 % (37.0-47.0); Hemoglobin 9.2 g/dl (12.0-16.0); Immature Granulocytes # (auto) 0.05 K/uL (0.01-0.20); Immature Granulocytes % (auto) 0.4 %; Lymphocytes # (auto) 1.59 K/uL (1.20-3.40); Lymphocytes % (auto) 12.8 %; Mean Corpuscular Hemoglobin 30.5 pg (25.0-34.0); Mean Corpuscular Hgb Conc 34.6 g/dL (32.0-36.0); Mean Corpuscular Volume 88.1 fL (80.0-100.0); Mean Platelet Volume 11.9 fL (9.4-12.4); Monocytes # (auto) 1.11 K/uL (0.11-0.59); Monocytes % (auto) 8.9 %; Neutrophils # (auto) 9.65 K/uL (1.40-6.50); Neutrophils % (auto) 77.6 %; Platelet Count 132 K/uL (130-400); RDW Coefficient of Variation 13.2 % (11.5-14.5); RDW Standard Deviation 42.5 fL (36.4-46.3); Red Blood Count 3.02 M/uL (4.20-5.40); White Blood Count 12.44 K/ul (4.8-10.8)
[2024-02-29 05:41] LABS: Albumin Globulin Ratio 1.9 (0.9-2); Albumin Level 3.1 gm/dl (3.4-5.0); BUN Creatinine Ratio 16.7 (10-20); Bilirubin,Total 0.6 mg/dl (0.2-1.0); Calcium 7.5 mg/dl (8.6-10.3); Creatinine Clr Calc Pharmacy 64.8 ml/min; Globulin 1.6 gm/dl (2.5-4.0); Magnesium 2.1 mg/dl (1.7-2.4); Potassium 4.1 mmol/L (3.5-5.1); Total Protein 4.7 gm/dl (6.0-8.3)
[2024-02-29 07:28] LABS: Estimated Average Glucose 148 mg/dl; Hemoglobin A1C 6.8 % (4.5-5.6)
--- NOTE | 2024-02-29 07:34 | Critical Care Progress Note ---
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 She did have an abnormal EEG and an abnormal MRI of the brain. Unclear how these might be related to her clinical presentation. Unclear if she could have had seizure activity accounting for the abnormality in the brain as well as the EEG findings although they do not appear to be in the same location. Await neurology input. Neurologically intact currently. Cardiac -hypotension requiring pressors. Lactate is cleared. Her elevated procalcitonin is suggestive of an infectious etiology although it is difficult to localize. Will start midodrine. She has been adequately fluid resuscitated. Wean pressors as tolerated. Respiratory -no current issues. GI -appreciate GI consultation. CT findings noted. The patient's exam is reassuring and she is tolerating a diet. RENAL/LYTES -no current issues - FoleyStrict I's and O's ENDO - type I diabetic. She believes her symptoms may be temporally related to using Mounjaro. She wants to come off the medication. Will discontinue insulin drip and place her on Lantus and ask pharmacy to assist in adjusting her insulin dosing. No evidence of relative adrenal insufficiency HEME - H&H stable, monitor routine CBC ID -elevated white blood cell count and elevated lactate on presentation with initial negative procalcitonin but now increased. Again identification is unclear. Would continue antibiotics empirically given clinical improvement. Await cultures. Suspect she will likely complete 3 to 5 days empiric antimicrobial therapy LINES/IV ACCESS - Peripheral IV, left upper arm midline. Hold on central line for now DVT PROPHYLAXIS - SCDs, Lovenox Total of 40 minutes in critical care time was spent evaluation management stabilization of this patient (2) Encephalopathy: (3) DKA (diabetic ketoacidosis): (4) Colitis: (5) Type 1 diabetes: Admission and Anticipated Discharge Date Admission Date: February 27, 2024 Subjective Patient seen and examined. EMR reviewed. Discussed with bedside critical care nurse and on multidisciplinary rounds as well as with overnight critical care JOHN. Patient sitting up eating breakfast. She states she feels much better this morning. She denies any nausea or vomiting. No abdominal pain. No chest pain or palpitations. No fevers chills or night sweats. Appetite is good. Review of Systems Review of Systems: All systems reviewed & are unremarkable except as noted in Subjective Physical Exam Constitutional: WD/WN, vitals as above Neck: trachea midline, no thyromegaly Respiratory: normal respiratory effort, lungs clear to auscultation Cardiovascular: RRR, no murmur, no edema Gastrointestinal (Abdomen): normal bowel sounds, soft, nontender, no hepatosplenomegaly Musculoskeletal: Extremities: extremities normal to inspection Skin: no rashes, warm and dry Neurologic: Nonfocal exam Lymphatic: no cervical lymphadenopathy Results & Data Results & Data Vital Signs (Past 12 Hours) Vital Signs Temp Pulse Pulse Resp BP BP Pulse Ox 02/29/24 07:13 75 02/29/24 07:03 92 H 14 97 02/29/24 07:00 106/61 02/29/24 06:00 81 15 106/71 97 02/29/24 05:30 89 115/66 02/29/24 05:00 36.9 C 90 19 105/60 97 02/29/24 04:00 84 14 98/86 L 97 02/29/24 03:00 84 18 101/62 98 02/29/24 02:00 87 18 95/55 L 96 02/29/24 01:00 87 02/29/24 01:00 37.5 C 93 H 18 110/61 98 02/29/24 00:32 87 98/53 L 02/29/24 00:00 92 H 17 97/51 L 96 02/28/24 23:00 98 H 21 100/50 L 97 02/28/24 22:00 93 H 14 94/50 L 97 02/28/24 21:00 37.3 C 103 H 23 100/53 L 99 02/28/24 20:30 97 H 19 98 02/28/24 20:30 97/51 L 02/28/24 20:30 97/51 L 02/28/24 20:30 97/51 L 02/28/24 20:30 97/51 L 02/28/24 20:18 105 H 18 98 02/28/24 20:00 101/51 L 02/28/24 19:48 106 H 20 100 02/28/24 19:39 100 H 14 100 O2 Del Method 02/29/24 07:13 02/29/24 07:03 02/29/24 07:00 02/29/24 06:00 Room Air 02/29/24 05:30 02/29/24 05:00 Room Air 02/29/24 04:00 Room Air 02/29/24 03:00 Room Air 02/29/24 02:00 Room Air 02/29/24 01:00 02/29/24 01:00 Room Air 02/29/24 00:32 02/29/24 00:00 Room Air 02/28/24 23:00 Room Air 02/28/24 22:00 Room Air 02/28/24 21:00 Room Air 02/28/24 20:30 02/28/24 20:30 02/28/24 20:30 02/28/24 20:30 02/28/24 20:30 02/28/24 20:18 02/28/24 20:00 02/28/24 19:48 02/28/24 19:39 Critical Care Results & Data Vital Signs (Past 12 Hours) Vital Signs Temp Pulse Pulse Resp BP BP Pulse Ox 02/29/24 07:13 75 02/29/24 07:03 92 H 14 97 02/29/24 07:00 106/61 02/29/24 06:00 81 15 106/71 97 02/29/24 05:30 89 115/66 02/29/24 05:00 36.9 C 90 19 105/60 97 02/29/24 04:00 84 14 98/86 L 97 02/29/24 03:00 84 18 101/62 98 02/29/24 02:00 87 18 95/55 L 96 02/29/24 01:00 87 02/29/24 01:00 37.5 C 93 H 18 110/61 98 02/29/24 00:32 87 98/53 L 02/29/24 00:00 92 H 17 97/51 L 96 02/28/24 23:00 98 H 21 100/50 L 97 02/28/24 22:00 93 H 14 94/50 L 97 02/28/24 21:00 37.3 C 103 H 23 100/53 L 99 11/28/24 20:30 97 H 19 98 02/28/24 20:30 97/51 L 02/28/24 20:30 97/51 L 02/28/24 20:30 97/51 L 02/28/24 20:30 97/51 L 02/28/24 20:18 105 H 18 98 O2 Del Method 02/29/24 07:13 02/29/24 07:03 02/29/24 07:00 02/29/24 06:00 Room Air 02/29/24 05:30 02/29/24 05:00 Room Air 02/29/24 04:00 Room Air 02/29/24 03:00 Room Air 02/29/24 02:00 Room Air 02/29/24 01:00 02/29/24 01:00 Room Air 02/29/24 00:32 02/29/24 00:00 Room Air 02/28/24 23:00 Room Air 02/28/24 22:00 Room Air 02/28/24 21:00 Room Air 02/28/24 20:30 02/28/24 20:30 02/28/24 20:30 02/28/24 20:30 02/28/24 20:30 02/28/24 20:18 Lab & Micro Results (Past 24 Hours) RBC 3.02 M/uL (4.20-5.40) L 02/29/24 WBC 12.44 K/ul (4.8-10.8) H 02/29/24 Hgb 9.2 g/dl (12.0-16.0) L 02/29/24 Hct 26.6 % (37.0-47.0) L 02/29/24 MCV 88.1 fL (80.0-100.0) 02/29/24 MCH 30.5 pg (25.0-34.0) 02/29/24 MCHC 34.6 g/dL (32.0-36.0) 02/29/24 RDW Standard Deviation 42.5 fL (36.4-46.3) 02/29/24 RDW Coefficient of Variation 13.2 % (11.5-14.5) 02/29/24 Plt Count 132 K/uL (130-400) 02/29/24 MPV 11.9 fL (9.4-12.4) 02/29/24 Neutrophils (%) (Auto) 77.6 % 02/29/24 Lymphocytes (%) (Auto) 12.8 % 02/29/24 Monocytes # (Auto) 1.11 K/uL (0.11-0.59) H 02/29/24 Eosinophils # (Auto) 0.01 K/uL (0.00-0.50) 02/29/24 Immature Granulocyte % (Auto) 0.4 % 02/29/24 Neutrophils # (Auto) 9.65 K/uL (1.40-6.50) H 02/29/24 Lymphocytes # (Auto) 1.59 K/uL (1.20-3.40) 02/29/24 Monocytes # (Auto) 1.11 K/uL (0.11-0.59) H 02/29/24 Eosinophils # (Auto) 0.01 K/uL (0.00-0.50) 02/29/24 Basophils # (Auto) 0.03 K/uL (0.00-0.20) 02/29/24 Immature Granulocyte # (Auto) 0.05 K/uL (0.01-0.20) 4 Na 135 mmol/L (136-145) L 02/29/24 K 4.1 mmol/L (3.5-5.1) 02/29/24 Cl 111 mmol/L (98-107) H 02/29/24 CO2 19 mmol/L (21-32) L 02/29/24 Anion Gap 5 (3-11) 02/29/24 BUN 15 mg/dl (6-23) 02/29/24 Creatinine 0.90 mg/dl (0.6-1.2) 02/29/24 BUN/Creatinine Ratio 16.7 (10-20) 02/29/24 Glu 120 mg/dl (70-99(Fasting)) H 02/29/24 Ca 7.5 mg/dl (8.6-10.3) L 02/29/24 Phosphorus Level 2.3 mg/dl (2.5-4.9) L 02/28/24 Total Bilirubin 0.6 mg/dl (0.2-1.0) 02/29/24 AST 41 U/L (13-39) H 02/29/24 ALT 49 U/L (7-52) 02/29/24 Alkaline Phosphatase 47 U/L (34-104) 02/29/24 TP 4.7 gm/dl (6.0-8.3) L 02/29/24 Albumin 3.1 gm/dl (3.4-5.0) L 02/29/24 Globulin 1.6 gm/dl (2.5-4.0) L 02/29/24 Albumin/Globulin Ratio 1.9 (0.9-2) 02/29/24 Mg 2.1 mg/dl (1.7-2.4) 02/29/24 04:15 Calcium Level 7.5 mg/dl (8.6-10.3) L 02/29/24 04:15 Venous Blood pH 7.39 (7.36-7.41) 02/28/24 23:59 Microbiology 02/27/24 19:35 Aerobic Blood Culture - Preliminary Blood No growth in Aerobic bottle after 24 hours. Anaerobic Blood Culture - Preliminary No growth in Anaerobic bottle after 24 hours. 02/27/24 19:35 Aerobic Blood Culture - Preliminary Blood No growth in Aerobic bottle after 24 hours. Anaerobic Blood Culture - Preliminary No growth in Anaerobic bottle after 24 hours. Diagnostic Findings (Past 24 Hours) Brain MRI 02/28/24 08:19 EXAM: MR brain seizure wo/w con CLINICAL HISTORY: 5.8mL Gadavist given existing IV RT AC by IVORY at 14:36pm, uneventful injection, no complaints from PT, PT was a code purple this morning, was completely unresponsive, no history of seizures but ordering doctor wanted seizure protocol incase PT was post-ictal from a seizure this morning that no one witnessed, came in to hospital last night with weakness X 2-3 days, diabetic ketoacidosis, lower blood pressure, PT was monitored for scan, PT claustrophobic, ran some propeller scans to help with motion, had an CT scan and EEG this morning after the code purple episode, PT has insulin pump and Dexcom, both were removed before MRI scan sent to [facility] TECHNIQUE: MRI of the brain was performed with and without intravenous contrast administration ( 5.8mL Gadavist ). Sequences obtained include pre-contrast and post-contrast T1-weighted, T2-weighted, FLAIR (Fluid-Attenuated Inversion Recovery), DWI (Diffusion-Weighted Imaging), and ADC (Apparent Diffusion Coefficient) sequences. COMPARISON: No previous studies are available for comparison. FINDINGS: Brain Parenchyma: There is a focus of subcortical abnormal bright T2/FLAIR signal intensity is seen at the right frontal lobe (T2 axial , FLAIR cor ). No enhancement or diffusion restriction. No evidence of acute infarction or hemorrhage. Hinojosa-white matter differentiation is preserved. No abnormal signal-intensity lesions were identified. Post-Contrast Findings: No abnormal enhancement of the brain parenchyma or meninges. Ventricles and Sulci: The ventricular system is within normal limits without evidence of hydrocephalus. Sulci and cisternal spaces are age-appropriate. Brainstem and Cerebellum: Normal appearance of the brainstem and cerebellum without focal lesions or abnormal enhancement. Vessels: Intracranial vessels appear normal without evidence of vascular malformations or aneurysms. Skull and Calvarium: Right maxillary sinus anterior wall cystocele measuring 11 x 8 mm. No evidence of skull vault lesions or abnormal marrow signals within the calvarium. IMPRESSION: 1. Right frontal subcortical area of altered signal intensity could be post ictal changes, demyelining plaque or due to previous ischemic insult. Follow-up is advised. 2. No evidence of acute infarction or abnormal contrast enhancement. Electronically signed by Geneva Cosme 02-28-2024 3:46 PM I & O Totals 24 Hours 02/28/24 02/29/24 03/01/24 06:59 06:59 06:59 Intake Total 3889.633 / 3889.633 8689.407 / 8689.557 0.15 / 0.15 Output Total 1435 / 1435 Balance 3889.633 / 3889.633 7254.407 / 7254.557 0.15 / 0.15 Cumulative 02/27/24 19:18 thru 02/29/24 07:00 Intake Total 17391.190 Output Total 1435 Balance 81234.190 RT Ventilator Mngmt (Last Documented) Ventilator Ordered Settings Respiratory Rate 14 02/29/24 07:03 Ventilator - PT Measurements Respiratory Rate 14 End-Tidal CO2 25 Coding Level of Care Code 03531 CRITICAL CARE 1ST 30-74M Diagnoses Septic shock A41.9; R65.21 Encephalopathy G93.40 DKA (diabetic ketoacidosis) E11.10 Colitis K52.9 Type 1 diabetes E10.9
[2024-02-29] MEDS: LANTUS PER UNIT CHARGE SQ ONE (08:15)
--- NOTE | 2024-02-29 08:22 | Pharmacy Report ---
Pharmacy Glycemic Short Note 2 - Date of Service February 29, 2024 - Glycemic Short BSG Results (Last 24 hours): 02/28/24 02/28/24 02/28/24 08:01 09:32 10:30 Glucose 281 H POC Glucose 272 H 260 H 02/28/24 02/28/24 02/28/24 11:29 11:48 12:38 Glucose 266 H POC Glucose 254 H 214 H 02/28/24 02/28/24 02/28/24 13:32 15:01 15:36 Glucose 227 H POC Glucose 213 H 225 H 02/28/24 02/28/24 02/28/24 16:01 17:01 18:07 Glucose POC Glucose 204 H 210 H 189 H 02/28/24 02/28/24 02/28/24 18:59 20:00 20:18 Glucose 169 H POC Glucose 152 H 153 H 02/28/24 02/28/24 02/28/24 21:05 23:03 23:59 Glucose 167 H POC Glucose 156 H 157 H 02/29/24 02/29/24 02/29/24 01:03 02:59 04:15 Glucose 120 H POC Glucose 160 H 161 H 02/29/24 02/29/24 02/29/24 05:08 06:02 06:57 Glucose POC Glucose 123 H 122 H 124 H 02/29/24 08:02 Glucose POC Glucose 143 H OUTPATIENT ANTIDIABETIC REGIMEN: * NovoLog omnipod - TDD = 12units/day * CF 73 * CR 18 * Mounjaro 5mg SC weekly ASSESSMENT: 02/28 * Patient DKA improving, gap closed, bicarb still low, 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 Will give patient TDD of basal at this time as she is still on dextrose fluids, norepi drip, and IV zosyn for likely colitis, GI source of sepsis? * Patient began type 1 DM diet last night, had 22g CHO at 2100, covered with CR, pt having 36g CHO this AM and will be covered w/ NovoLog. * Overlap insulin drip with basal insulin x 1 hour today, patient's drip only running at 1 unit/hr and euglycemic. 02/27 * 53 yo F, T1DM admitted with sepsis, encephalopathy, seizure like activity, possible DKA, started on insulin drip last night, then was transition to SC insulin this morning, then patient deteriorated and moved to ICU, DKA protocol began at that time. Insulin drip running at 1.3units/hr, IV fluids = 1/2NS + 40K @ 125cc/hr, no dextrose incorporated yet, as BG remains ~213mg/dl. * AG 16 -> 8, CO2 15 -> 18 * NPO for neuro consult, pt not arousable today, brain MRI & EEG ordered. * Although anion gap closed, patient still not at goal blood sugar, will tighten goal range slightly and continue insulin drip at this time. PLAN FOR INPATIENT GLYCEMIC CONTROL: * Hold outpatient diabetes medications * Basal insulin * Lantus 12 units SQ x 1 dose now at 0800, 4 units HS for BSG > 200mg/dl - further dosing tomorrow morning * Prandial insulin - NovoLog ACHS and overnight tonight at 0000,0400 * CF 50 mg/dL/unit * CR 1 unit per 18 grams CHO consumed * IV insulin infusion per DKA protocol, running at 1unit/hr, DC at 0900 * goal 140-180mg/dl
[2024-02-29] MEDS ORDERED: LANTUS PER UNIT CHARGE SQ SCH (09:00)
--- NOTE | 2024-02-29 10:22 | Neurology Progress Note ---
Date of Service February 29, 2024 Assessment & Plan (1) Episode of unresponsiveness: (2) Abnormal brain MRI: (3) Septic shock: (4) DKA (diabetic ketoacidosis): Plan 53-year-old female with a resolved episode of unresponsiveness occurring in the context of diabetic ketoacidosis, septic shock. Brain MRI reveals what is most likely an area of chronic ischemic gliosis within the right frontal lobe white matter. A seizure focus is probably unlikely, there is no corresponding abnormality on DWI which can sometimes be seen with a seizure focus or in the context of an acute infarct. Demyelinating disease such as multiple sclerosis is very unlikely. Would consider obtaining a follow-up brain MRI in 3 to 6 months. Does not require treatment with an antiseizure medication at this time. If she were to have recurrent episodes going forward, could consider obtaining ambulatory EEG monitoring. I am uncertain if her episodes may impart be related to dysautonomia related to her diabetes mellitus. I am uncertain these episodes may be related to her Mounjaro. She does not require any further inpatient neurological assessment. May follow-up with myself or an JOHN in neurology clinic in 2 to 3 weeks to arrange follow-up brain MRI and to assess for any need for ambulatory EEG monitoring. Please call with any questions. Admission and Anticipated Discharge Date Admission Date: February 27, 2024 Subjective Follow-up regarding encephalopathy Previous symptoms resolved. She is currently alert, attentive, fully oriented, and responds appropriately to questions. Her is at bedside. She currently denies headache, dizziness, vision disturbance, weakness, or sensory loss. She denies any abdominal pain or nausea at this time. She recalls her similar episode which occurred this past August and attributes her symptoms to Mounjaro which was prescribed for her diabetes. She has lost about 40 pounds since starting this medication. He has no prior history of seizures or convulsive episodes, no prior history of stroke or TIA. I independently reviewed patient's brain MRI completed yesterday. The study reveals an area of subcortical chronic ischemic gliosis within the right frontal lobe. There are no abnormalities on DWI or GRE sequences. There is no mesial temporal sclerosis or nodular heterotopia's. I do not think the right frontal lobe finding is consistent with postictal change or demyelinating plaque. EEG completed yesterday was suggestive of encephalopathy and focal left parietal slowing, no epileptiform normalities. Results & Data Vital Signs (Past 12 Hours) Vital Signs Temp Pulse Resp BP Pulse Ox O2 Del Method 02/29/24 09:00 108/69 02/29/24 08:57 85 15 97 02/29/24 08:06 94 H 22 98 02/29/24 08:00 115/81 02/29/24 07:30 116/71 02/29/24 07:13 75 02/29/24 07:03 92 H 14 97 02/29/24 07:00 106/61 02/29/24 06:00 81 15 106/71 97 Room Air 02/29/24 05:30 89 115/66 02/29/24 05:00 36.9 C 90 19 105/60 97 Room Air 02/29/24 04:00 84 14 98/86 L 97 Room Air 02/29/24 03:00 84 18 101/62 98 Room Air 02/29/24 02:00 87 18 95/55 L 96 Room Air 02/29/24 01:00 87 02/29/24 01:00 37.5 C 93 H 18 110/61 98 Room Air 02/29/24 00:32 87 98/53 L 02/29/24 00:00 92 H 17 97/51 L 96 Room Air 02/28/24 23:00 98 H 21 100/50 L 97 Room Air 02/28/24 22:00 93 H 14 94/50 L 97 Room Air Laboratory Results WBC 12.44, hemoglobin 9.2, hematocrit 26.6, platelet count 132, sodium 135, potassium 4.1, BUN 15, creatinine 0.90, glucose 120, hemoglobin A1c 6.8, calcium 7.5, magnesium 2.1, AST 41, ALT 49 Exam (Neuro) Constitutional: well developed; no acute distress Eyes: normal visual ballard by confrontation, PERRL and EOM intact bilaterally; no nystagmus Neurologic: Oriented to:: Person, Place and Time Memory: Short Term Intact and Remote Intact Attention: Span Intact and Concentration Intact Speech Fluency: negative Dysarthria or Dysfluency Speech Aphasia: negative Aphasia Fund of Knowledge: Current Events, Past History and Vocabulary Cranial Nerves: Normal II, III, IV, , V, VII, VIII, IX, X, XI and XII Motor Strength: Normal Lower Extremities and Normal Upper Extremities Motor Tone: Normal Lower Extremities and Normal Upper Extremities Muscle Bulk/Involuntary Movements: No Involuntary Movements; negative Muscle Atrophy Sensation: Light Touch Intact and Proprioception Intact Coordination: Normal Deep Tendon Reflexes: Rt Biceps: 2+, Lt Biceps: 2+, Rt Patellar: 2+ and Lt Patellar: 2+ Special Tests: negative Babinski Present Coding Level of Care Code 88333 SUB INP/OBS CARE 3/50MIN Diagnoses Episode of unresponsiveness R40.4 Abnormal brain MRI R90.89 Septic shock A41.9; R65.21 DKA (diabetic ketoacidosis) E11.10 Time Spent (min) 60 Comment Total time includes patient contact, chart review, counseling, note preparation
--- NOTE | 2024-02-29 10:34 | Gastroenterology Progress Note ---
Date of Service February 29, 2024 Assessment & Plan (1) Colitis: Plan: Patient is comfortable without any acute GI problems she had a colitis on CT scan but she has no symptoms of colitis she has not had a bowel movement since yesterday she has no GI complaints at the current time. She had a colonoscopy last month also which was essentially normal at the current time I would follow clinically and if there is any bowel movements would collect stool studies. thank you for allowing us to take part in the care of your patient we will continue to follow her with you Admission and Anticipated Discharge Date Admission Date: February 27, 2024 Subjective Patient is sitting comfortably in the chair at present she denies any specific GI complaints no dysphagia or reflux nausea vomiting or abdominal pain she is tolerating her diet well as well as drinking fluids of note she has not had a bowel movement since yesterday u Review of Systems Review of Systems: A 10 point review of systems was done Physical Exam Physical Exam: Sitting comfortably in the chair within no acute distress Constitutional: Well-developed well-nourished Respiratory: Clear anteriorly Cardiovascular: S1 and S2 Gastrointestinal (Abdomen): Soft no tenderness or masses appreciated bowel sounds are present Results & Data Results & Data Vital Signs (Past 12 Hours) Vital Signs Temp Pulse Resp BP Pulse Ox O2 Del Method 02/29/24 09:00 108/69 02/29/24 08:57 85 15 97 02/29/24 08:06 94 H 22 98 02/29/24 08:00 115/81 02/29/24 07:30 116/71 02/29/24 07:13 75 02/29/24 07:03 92 H 14 97 02/29/24 07:00 106/61 02/29/24 06:00 81 15 106/71 97 Room Air 02/29/24 05:30 89 115/66 02/29/24 05:00 36.9 C 90 19 105/60 97 Room Air 02/29/24 04:00 84 14 98/86 L 97 Room Air 02/29/24 03:00 84 18 101/62 98 Room Air 02/29/24 02:00 87 18 95/55 L 96 Room Air 02/29/24 01:00 87 02/29/24 01:00 37.5 C 93 H 18 110/61 98 Room Air 02/29/24 00:32 87 98/53 L 02/29/24 00:00 92 H 17 97/51 L 96 Room Air 02/28/24 23:00 98 H 21 100/50 L 97 Room Air PG Care Time/CCT Total # of Minutes Spent Total Time Spent with Patient: Total time spent is greater than 50% in coordination of care (as documented) at patient's floor/unit and/or counseling patient: Coding Level of Care Code 98177 SUB INP/OBS CARE 2/35MIN Diagnoses Colitis K52.9
[2024-02-29] MEDS: POLYETHYLENE (MIRALAX) 17 GM PACK PO PRN (10:50)
[2024-02-29] MEDS: INSULIN ASPART PER UNIT CHARGE SC SCH (12:11)
[2024-02-29] MEDS: MIDODRINE HCL 2.5 MG TAB PO SCH (12:20)
--- NOTE | 2024-02-29 14:47 | Hospitalist Progress Note ---
Date of Service February 29, 2024 Assessment & Plan (1) Sepsis: Plan: Sepsis CTA/P with colonic mucosal thickening suspicious for nonspecific infectious versus inflammatory colitis Patient hypotensive requiring fluid resuscitation and Levophed She is a total net 11 L positive since admission. Does have some pedal edema consistent with total fluid overload. Her blood pressure was slightly slow to rebound but is currently doing well after Levophed wean on midodrine 3 times daily. Additional aggressive fluids discontinued, able to tolerate p.o. Has not had symptoms of colitis and no GI complaints, within normal colonoscopy last month. Stool study is pending, no other source identified and is continued on antibiotics at this time. Procalcitonin did not rise suspicious for underlying infectious cause. Zosyn is continued pending culture results an ticipate 5-day course 02/27 - 03/03 if continuing to do well. If progressing well then can likely de- escalate to Unasyn 03/01 with Augmentin on discharge (2) DKA (diabetic ketoacidosis): Plan: Increased anion gap, from volume contraction, and mildly elevated BSG on admission to 75 Anion gap closed, GTT weaned and discontinued Unclear if her Mounjaro is contributing meaningfully to her episodes, certainly is volume contracted and was intravascularly depleted during admission. Agree with treatment of sepsis as above given 3 episodes all which began after starting this reasonable to hold and pursue alternative glycemic control. Continue basal bolus SSI at this time (3) Encephalopathy: Plan: Suspected metabolic encephalopathy EEG unremarkable MRI with an area of chronic ischemic gliosis but seizure unlikely and no corresponding DWI abnormality. Can have outpatient follow-up and MRI in 3 to 6 months No antiseizure medications recommended Mentation is at baseline 02/28 Plan Plan Chronic Stable: HLD: continue statin Diet: DM1 as tolerated Code: Full VTE Prophylaxis: Lovenox Dispo: PCU Admission and Anticipated Discharge Date Admission Date: February 27, 2024 Subjective Seen at bedside today. She reports she feels well. Little puffy from fluid but does not have any chest pain, chest pressure, shortness of breath, dysuria, abdominal pain. She reports that she is concerned that this may be due to her MounjaroAs she has had multiple episodes, 3, since starting this around September 2022. She has not had a bowel movement today but has no rectal pain and denies fever/chills/sweats Physical Exam Physical Exam: General: A&Ox3. NAD. Cooperative. HEENT: Atraumatic, normocephalic. Vision and hearing grossly intact Pulm: CTAB A&P. -wheezes, -rales, -rhonchi. Symmetrical chest rise. No increase in work of breathing. No respiratory distress. Cardiac: RRR, -mrg. Radial pulses intact and symmetrical. Abdominal: Nontender, nondistended, soft. BS present. Extremities: Moves all extremities equally. Slight hand and leg edema Results & Data Results & Data Vital Signs (Past 12 Hours) Vital Signs Temp Pulse Resp BP Pulse Ox O2 Del Method 02/29/24 12:21 36.7 C 02/29/24 12:05 83 20 100 02/29/24 12:00 111/62 02/29/24 11:00 78 20 99 02/29/24 11:00 103/66 02/29/24 10:06 77 18 98 02/29/24 10:02 104/66 02/29/24 09:00 108/69 02/29/24 08:57 85 15 97 02/29/24 08:06 94 H 22 98 02/29/24 08:00 36.7 C 02/29/24 08:00 115/81 02/29/24 07:30 116/71 02/29/24 07:13 75 02/29/24 07:03 92 H 14 97 02/29/24 07:00 106/61 02/29/24 06:00 81 15 106/71 97 Room Air 02/29/24 05:30 89 115/66 02/29/24 05:00 36.9 C 90 19 105/60 97 Room Air 02/29/24 04:00 84 14 98/86 L 97 Room Air 02/29/24 03:00 84 18 101/62 98 Room Air PG Care Time/CCT Total # of Minutes Spent Total Time Spent with Patient: Total time spent is greater than 50% in coordination of care (as documented) at patient's floor/unit and/or counseling patient: Coding Level of Care Code 14772 SUB INP/OBS CARE 3/50MIN Diagnoses Sepsis A41.9 DKA (diabetic ketoacidosis) E11.10 Encephalopathy G93.40
[2024-02-29 16:26] LABS: Adenovirus F 40/41 PCR Not Detected (NotDetected); Astrovirus PCR Not Detected (NotDetected); Campylobacter PCR Not Detected (NotDetected); Cryptosporidium PCR Not Detected (NotDetected); Cyclospora cayetanensis PCR Not Detected (NotDetected); Entamoeba histolytica PCR Not Detected (NotDetected); Enteroaggregative E.coli(EAEC) Not Detected (NotDetected); Enteropathogenic E.coli (EPEC) Not Detected (NotDetected); Enterotoxigenic E.coli (ETEC) Not Detected (NotDetected); Giardia lamblia PCR Not Detected (NotDetected); Norovirus GI/GII PCR Not Detected (NotDetected); Plesiomonas shigelloides PCR Not Detected (NotDetected); Rotavirus A PCR Not Detected (NotDetected); Salmonella PCR Not Detected (NotDetected); Sapovirus PCR Not Detected (NotDetected); Shiga-like Toxin E.coli (STEC) Not Detected (NotDetected); Shigella/Enteroinvasive E.coli Not Detected (NotDetected); Vibrio cholerae PCR Not Detected (NotDetected); Vibrio species PCR Not Detected (NotDetected); Yersinia enterocolitica PCR Not Detected (NotDetected)
[2024-02-29] MEDS: ICU ELECTROLYTE REPLACEMENT PROTOCOL SCH (16:52)
[2024-02-29] MEDS: LANTUS PER UNIT CHARGE SC ONE (20:18)
--- NOTE | 2024-03-01 00:05 | XCELERA ---
[id number] \\[id number]
[2024-03-01] MEDS: INSULIN ASPART PER UNIT CHARGE SC SCH (00:08)
[2024-03-01 05:38] LABS: BUN Creatinine Ratio 14.3 (10-20); Calcium 7.9 mg/dl (8.6-10.3); Creatinine Clr Calc Pharmacy 91.6 ml/min; Magnesium 1.8 mg/dl (1.7-2.4); Phosphorus 2.4 mg/dl (2.5-4.9); Potassium 4.3 mmol/L (3.5-5.1)
[2024-03-01] MEDS: POT PHOSPHATE MONOBASIC W/ SOD TAB PO SCH (07:10)
[2024-03-01] MEDS: MAGNESIUM OXIDE 400 MG TAB PO SCH (07:10)
--- NOTE | 2024-03-01 07:49 | Critical Care Progress Note ---
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 She is doing well clinically. Recommendations Neuro -encephalopathy/altered mental status of unclear etiology. Resolved. No neurological deficits currently. Discussed with neurology yesterday. They believe the read on the MRI of the brain is likely an over read. Unlikely to be seizure activity. She can follow-up with neurology in the outpatient setting if needed. Cardiac -hypotension initially requiring pressors now off.. Lactate is cleared. Wean midodrine as tolerated Respiratory -no current issues. GI -appreciate GI consultation. CT findings noted. The patient's exam is reassuring and she is tolerating a diet. RENAL/LYTES -no current issues - FoleyStrict I's and O's ENDO - type I diabetic. Transition to subcutaneous insulin HEME - H&H stable, monitor routine CBC ID -unclear if her elevated white count was a stress response or not however she is improved with antibiotics. Cultures negative to date. Will transition her to oral Augmentin for an additional 2 days at which point antibiotics can be discontinued LINES/IV ACCESS - Peripheral IV, left upper arm midline. Hold on central line for now DVT PROPHYLAXIS - SCDs, Lovenox Patient's critical care issues have resolved. She can transfer to the floor. Critical care will sign off. Feel free to contact us with questions or concerns (2) Encephalopathy: (3) DKA (diabetic ketoacidosis): (4) Colitis: (5) Type 1 diabetes: Admission and Anticipated Discharge Date Admission Date: February 27, 2024 Subjective Patient seen and examined. EMR reviewed. Discussed with bedside critical care nurse and patient at bedside. The patient is doing well clinically. She is tolerating a diet. She is devoid of any complaints currently and specifically denies any chest pain, shortness of breath, nausea, vomiting, diarrhea, cough, or sputum production. She feels well. She has been able to ambulate short distances. She has been off vasopressor agents and is maintaining her blood pressure appropriately. Review of Systems Review of Systems: All systems reviewed & are unremarkable except as noted in Subjective Physical Exam Constitutional: WD/WN, vitals as above Neck: trachea midline, no thyromegaly Respiratory: normal respiratory effort, lungs clear to auscultation Cardiovascular: RRR, no murmur, no edema Gastrointestinal (Abdomen): normal bowel sounds, soft, nontender, no hepatosplenomegaly Musculoskeletal: Extremities: extremities normal to inspection Skin: no rashes, warm and dry Lymphatic: no cervical lymphadenopathy Results & Data Results & Data Vital Signs (Past 12 Hours) Vital Signs Temp Pulse Resp BP Pulse Ox O2 Del Method 03/01/24 06:00 70 16 105/68 97 Room Air 03/01/24 05:00 66 18 103/67 97 Room Air 03/01/24 04:00 36.5 C 69 15 106/60 99 Room Air 03/01/24 03:00 72 16 96/55 L Room Air 03/01/24 02:00 66 14 93/56 L Room Air 03/01/24 01:00 65 14 99/55 L Room Air 03/01/24 00:21 68 03/01/24 00:00 62 17 100/60 97 Room Air 02/29/24 23:00 63 15 91/55 L 99 Room Air 02/29/24 22:00 66 14 118/76 98 Room Air 02/29/24 21:00 66 12 101/61 100 Room Air 02/29/24 20:00 80 24 106/86 100 Room Air Critical Care Results & Data Vital Signs (Past 12 Hours) Vital Signs Temp Pulse Resp BP Pulse Ox O2 Del Method 03/01/24 06:00 70 16 105/68 97 Room Air 03/01/24 05:00 66 18 103/67 97 Room Air 03/01/24 04:00 36.5 C 69 15 106/60 99 Room Air 03/01/24 03:00 72 16 96/55 L Room Air 03/01/24 02:00 66 14 93/56 L Room Air 03/01/24 01:00 65 14 99/55 L Room Air 03/01/24 00:21 68 03/01/24 00:00 62 17 100/60 97 Room Air 02/29/24 23:00 63 15 91/55 L 99 Room Air 02/29/24 22:00 66 14 118/76 98 Room Air 02/29/24 21:00 66 12 101/61 100 Room Air 02/29/24 20:00 80 24 106/86 100 Room Air Lab & Micro Results (Past 24 Hours) No Data to Display Na 139 mmol/L (136-145) 03/01/24 K 4.3 mmol/L (3.5-5.1) 03/01/24 Cl 114 mmol/L (98-107) H 03/01/24 CO2 23 mmol/L (21-32) 03/01/24 Anion Gap 2 (3-11) L 03/01/24 BUN 10 mg/dl (6-23) 03/01/24 Creatinine 0.70 mg/dl (0.6-1.2) 03/01/24 BUN/Creatinine Ratio 14.3 (10-20) 03/01/24 Glu 120 mg/dl (70-99(Fasting)) H 03/01/24 Ca 7.9 mg/dl (8.6-10.3) L 03/01/24 Phosphorus Level 2.4 mg/dl (2.5-4.9) L 03/01/24 Mg 1.8 mg/dl (1.7-2.4) 03/01/24 05:01 Calcium Level 7.9 mg/dl (8.6-10.3) L 03/01/24 05:01 Microbiology 02/27/24 19:35 Aerobic Blood Culture - Preliminary Blood No growth in Aerobic bottle after 48 hours. Anaerobic Blood Culture - Preliminary No growth in Anaerobic bottle after 48 hours. 02/27/24 19:35 Aerobic Blood Culture - Preliminary Blood No growth in Aerobic bottle after 48 hours. Anaerobic Blood Culture - Preliminary No growth in Anaerobic bottle after 48 hours. I & O Totals 24 Hours 02/29/24 03/01/24 03/02/24 06:59 06:59 06:59 Intake Total 8689.407 / 8689.557 1607.217 / 1607.217 Output Total 1435 / 1435 851 / 851 Balance 7254.407 / 7254.557 756.217 / 756.217 Cumulative 02/27/24 19:18 thru 03/01/24 06:00 Intake Total 56166.257 Output Total 2286 Balance 33189.257 RT Ventilator Mngmt (Last Documented) Ventilator Ordered Settings Respiratory Rate 16 03/01/24 06:00 Ventilator - PT Measurements Respiratory Rate 16 End-Tidal CO2 25 Coding Level of Care Code 72203 SUB INP/OBS CARE 2/35MIN Diagnoses Septic shock A41.9; R65.21 Encephalopathy G93.40 DKA (diabetic ketoacidosis) E11.10 Colitis K52.9 Type 1 diabetes E10.9
--- NOTE | 2024-03-01 08:18 | Gastroenterology Progress Note ---
Date of Service March 01, 2024 Assessment & Plan (1) Colitis: Plan: 53-year-old female with a history of diabetes presented with hypotension thought to be related to mild DKA. A CT showed modest thickening of the colon which can be seen in the settings of low albumin. Of note the patient does not have any symptoms of diarrhea, hematochezia nor irregularity of her bowel habits. The patient also had a recent colonoscopy which per report was within normal limits. This appears to be a spurious imaging finding. Would recommend GI consultation in the future should the patient develop symptoms of diarrhea. Recommendations Advance diet as tolerated Recall gastroenterology as needed Admission and Anticipated Discharge Date Admission Date: February 27, 2024 Subjective The patient reports that overall she is starting to feel improved today. She denies having nausea, vomiting, abdominal discomfort nor diarrhea. GI was ini lamy consulted for evaluation of mucosal thickening seen on CT scan. Of note the patient did have a recent colonoscopy which was within normal limits. Stool studies performed on 1128 were negative for common pathogens in addition to C. difficile. Review of Systems Constitutional: no sweats, no malaise and no weight loss Respiratory: no cough and no dyspnea Gastrointestinal: no abdominal pain, no bloating, no nausea, no vomiting, no hematemesis, no pain with swallowing, no cramping and no diarrhea/loose stools Physical Exam Eyes: PERRL, conjunctivae normal, anicteric sclerae Neck: trachea midline, no thyromegaly Gastrointestinal (Abdomen): normal bowel sounds, soft, nontender, no hepatosplenomegaly Skin: no rashes, warm and dry Results & Data Vital Signs (Past 12 Hours) Vital Signs Temp Pulse Resp BP Pulse Ox O2 Del Method 03/01/24 06:00 70 16 105/68 97 Room Air 03/01/24 05:00 66 18 103/67 97 Room Air 03/01/24 04:00 36.5 C 69 15 106/60 99 Room Air 03/01/24 03:00 72 16 96/55 L Room Air 03/01/24 02:00 66 14 93/56 L Room Air 03/01/24 01:00 65 14 99/55 L Room Air 03/01/24 00:21 68 03/01/24 00:00 62 17 100/60 97 Room Air 02/29/24 23:00 63 15 91/55 L 99 Room Air 02/29/24 22:00 66 14 118/76 98 Room Air 02/29/24 21:00 66 12 101/61 100 Room Air Laboratory Results Laboratory Results - last 24 hr 02/29/24 02/29/24 02/29/24 10:47 14:45 16:12 Sodium Potassium Chloride Carbon Dioxide Anion Gap BUN Creatinine Est Cr Clr Drug Dosing eGFR BUN/Creatinine Ratio Glucose POC Glucose 129 H 277 H Calcium Phosphorus Magnesium Stl C. cayetanensis PCR Not Detected Stool Rotavirus A PCR Not Detected Stl Adenov F 40/41 PCR Not Detected Stool Astrovirus (PCR) Not Detected Stool Campylobacter PCR Not Detected Stl C. diff Tox B Gene Negative Cdiff Gene Stool Cryptosporidium PCR Not Detected Stl E.coli Shiga Tox PCR Not Detected Stl Enterotoxigenic E PCR Not Detected Stool EPEC (PCR) Not Detected Stool EAEC (PCR) Not Detected Stl E. histolytica PCR Not Detected Stool Giardia Lamblia PCR Not Detected Stool Salmonella PCR Not Detected Stool Sapovirus (PCR) Not Detected Stl P. shigelloides PCR Not Detected Stl Shigella/EIEC PCR Not Detected St Y.enterocolitica PCR Not Detected Stool Vibrio (PCR) Not Detected Stl Vibrio cholerae PCR Not Detected Stl Norovirus GI/GII PCR Not Detected 02/29/24 03/01/24 03/01/24 20:12 00:04 04:05 Sodium Potassium Chloride Carbon Dioxide Anion Gap BUN Creatinine Est Cr Clr Drug Dosing eGFR BUN/Creatinine Ratio Glucose POC Glucose 267 H 131 H 121 H Calcium Phosphorus Magnesium Stl C. cayetanensis PCR Stool Rotavirus A PCR Stl Adenov F 40/41 PCR Stool Astrovirus (PCR) Stool Campylobacter PCR Stl C. diff Tox B Gene Stool Cryptosporidium PCR Stl E.coli Shiga Tox PCR Stl Enterotoxigenic E PCR Stool EPEC (PCR) Stool EAEC (PCR) Stl E. histolytica PCR Stool Giardia Lamblia PCR Stool Salmonella PCR Stool Sapovirus (PCR) Stl P. shigelloides PCR Stl Shigella/EIEC PCR St Y.enterocolitica PCR Stool Vibrio (PCR) Stl Vibrio cholerae PCR Stl Norovirus GI/GII PCR 03/01/24 03/01/24 05:01 07:15 Sodium 139 Potassium 4.3 Chloride 114 H Carbon Dioxide 23 Anion Gap 2 L BUN 10 Creatinine 0.70 Est Cr Clr Drug Dosing 91.6 eGFR 102.07 BUN/Creatinine Ratio 14.3 Glucose 120 H POC Glucose 112 H Calcium 7.9 L Phosphorus 2.4 L Magnesium 1.8 Stl C. cayetanensis PCR Stool Rotavirus A PCR Stl Adenov F 40/41 PCR Stool Astrovirus (PCR) Stool Campylobacter PCR Stl C. diff Tox B Gene Stool Cryptosporidium PCR Stl E.coli Shiga Tox PCR Stl Enterotoxigenic E PCR Stool EPEC (PCR) Stool EAEC (PCR) Stl E. histolytica PCR Stool Giardia Lamblia PCR Stool Salmonella PCR Stool Sapovirus (PCR) Stl P. shigelloides PCR Stl Shigella/EIEC PCR St Y.enterocolitica PCR Stool Vibrio (PCR) Stl Vibrio cholerae PCR Stl Norovirus GI/GII PCR Diagnostic Findings Colonoscopy Results 01/02/24 Findings: - The perianal and digital rectal examinations were normal. - The colon (entire examined portion) appeared normal. No evidence of colitis, polyps or diverticula. Impression: - The entire examined colon is normal. - No evidence of colitis, polyps or diverticula. - No specimens collected. CT ABDOMEN + PELVIS With Contrast IV Amt: 116 cc opti 320 FINDINGS: ABDOMEN: Liver: Unremarkable. Gallbladder and bile ducts: Unremarkable. Pancreas: Unremarkable. Spleen: Unremarkable. Adrenals: Unremarkable. Kidneys and ureters: Unremarkable. No obstructing stones. No hydronephrosis. Stomach and bowel: Colonic mucosal thickening consistent with nonspecific infectious or inflammatory colitis. No perforation, obstruction, or abscess. PELVIS: Appendix: No findings to suggest acute appendicitis. Bladder: Unremarkable. Reproductive: Unremarkable as visualized. ABDOMEN and PELVIS: Intraperitoneal space: Unremarkable. No free air. No significant fluid collection. Bones/joints: No acute fracture. Soft tissues: Body wall edema. Vasculature: Unremarkable. Lymph nodes: Unremarkable. IMPRESSION: Colonic mucosal thickening consistent with nonspecific infectious or inflammatory colitis. No perforation, obstruction, or abscess.
[2024-03-01] MEDS: AMOXICILLIN/CLAVULANATE 875 MG TAB PO SCH (09:05)
[2024-03-01] MEDS: LANTUS PER UNIT CHARGE SC SCH (09:07)
--- NOTE | 2024-03-01 22:35 | Hospitalist Progress Note ---
Date of Service March 01, 2024 Assessment & Plan (1) Sepsis: Plan: Sepsis CTA/P with colonic mucosal thickening suspicious for nonspecific infectious versus inflammatory colitis Patient hypotensive requiring fluid resuscitation and Levophed She is a total net 11 L positive since admission. Does have some pedal edema consistent with total fluid overload. Her blood pressure was slightly slow to rebound but is currently doing well after Levophed wean on midodrine 3 times daily. Additional aggressive fluids discontinued, able to tolerate p.o. Has not had symptoms of colitis and no GI complaints, within normal colonoscopy last month. Stool study is pending, no other source identified and is continued on antibiotics at this time. Procalcitonin did not rise suspicious for underlying infectious cause. Zosyn is continued pending culture results an ticipate 5-day course 02/27 - 03/03 if continuing to do well. If progressing well then can likely de- escalate to Unasyn 03/01 with Augmentin on discharge -on 03/01: held midodrine, blood pressure has arslan stable. If vitals remain stable, patient will be discharged. (2) DKA (diabetic ketoacidosis): Plan: Increased anion gap, from volume contraction, and mildly elevated BSG on admission to 75 Anion gap closed, GTT weaned and discontinued Unclear if her Mounjaro is contributing meaningfully to her episodes, certainly is volume contracted and was intravascularly depleted during admission. Agree with treatment of sepsis as above given 3 episodes all which began after starting this reasonable to hold and pursue alternative glycemic control. Continue basal bolus SSI at this time (3) Encephalopathy: Plan: Suspected metabolic encephalopathy EEG unremarkable MRI with an area of chronic ischemic gliosis but seizure unlikely and no corresponding DWI abnormality. Can have outpatient follow-up and MRI in 3 to 6 months No antiseizure medications recommended Mentation is at baseline 02/28 Plan Plan Chronic Stable: HLD: continue statin Diet: DM1 as tolerated Code: Full VTE Prophylaxis: Lovenox Dispo: PCU Admission and Anticipated Discharge Date Admission Date: February 27, 2024 Subjective Patient reports feeling well. She has no new complaints. Review of Systems Review of Systems: All systems reviewed & are unremarkable except as noted in HPI & below Physical Exam Physical Exam: Constitutional: well-appearing, no acute distress HEENT: NCAT, no conjunctival injection CV: regular rhythm Resp: CTABL GI: soft Skin: warm, dry, no rash appreciated Neuro: alert, oriented Results & Data Results & Data Vital Signs (Past 12 Hours) Vital Signs Temp Pulse Resp BP Pulse Ox O2 Del Method 03/01/24 20:00 36.9 C 60 12 126/70 99 Room Air 03/01/24 16:27 36.7 C 64 17 134/78 98 Room Air 03/01/24 11:43 36.6 C 61 18 131/73 99 Room Air PG Care Time/CCT Total # of Minutes Spent Total Time Spent with Patient: Total time spent is greater than 50% in coordination of care (as documented) at patient's floor/unit and/or counseling patient: Coding Level of Care Code 53419 SUB INP/OBS CARE 2/35MIN Diagnoses Sepsis A41.9 DKA (diabetic ketoacidosis) E11.10 Encephalopathy G93.40
[2024-03-02 02:10] VITALS: RESP 18
[2024-03-02 06:59] VITALS: BP 118/72; TEMP 97.7; O2SAT 99
[2024-03-02 07:49] LABS: Basophils # (auto) 0.02 K/uL (0.00-0.20); Basophils % (auto) 0.7 %; Eosinophils # (auto) 0.06 K/uL (0.00-0.50); Eosinophils % (auto) 2.1 %; Hemoglobin 10.6 g/dl (12.0-16.0); Immature Granulocytes # (auto) 0.01 K/uL (0.01-0.20); Immature Granulocytes % (auto) 0.4 %; Lymphocytes # (auto) 0.91 K/uL (1.20-3.40); Mean Corpuscular Hgb Conc 35.3 g/dL (32.0-36.0); Mean Corpuscular Volume 87.7 fL (80.0-100.0); Monocytes # (auto) 0.22 K/uL (0.11-0.59); Monocytes % (auto) 7.7 %; Neutrophils # (auto) 1.62 K/uL (1.40-6.50); Neutrophils % (auto) 57.1 %; Platelet Count 121 K/uL (130-400); RDW Coefficient of Variation 12.8 % (11.5-14.5); RDW Standard Deviation 40.8 fL (36.4-46.3); Red Blood Count 3.42 M/uL (4.20-5.40); White Blood Count 2.84 K/ul (4.8-10.8)
[2024-03-02 08:02] LABS: BUN Creatinine Ratio 17.9 (10-20); Calcium 8.4 mg/dl (8.6-10.3); Creatinine Clr Calc Pharmacy 114.5 ml/min; Magnesium 1.5 mg/dl (1.7-2.4); Phosphorus 3.8 mg/dl (2.5-4.9)
[2024-03-02] MEDS ORDERED: LANTUS PER UNIT CHARGE SC SCH (09:00)
[2024-03-02 11:13] VITALS: PULSE 73
--- NOTE | 2024-03-02 19:09 | Billing Data ---
Date of Service March 02, 2024 Coding Level of Care Code 95822 INT INP/OBS CARE
== END 2024-03-02 11:57 | disposition home or self-care (01) | DRG 871 ==
LOC: ED 19:18 → 2S 23:34 → SUATTDRO 23:34 → 2S 02-28 01:28 → 1E 02-28 07:12 → 2S 03-02 02:17